=== PATIENT | male | born 1955 | race Caucasian/White ===

== ENCOUNTER → 2018-05-14 09:40 | Outpatient (CLI) | payer BC, SELFPAY ==
[2018-05-14 10:45] LABS: Potassium 5.1 mmoL/L (3.5-5.1)
== END ==
PROVIDERS: PCP Physician Assistant; Visit Provider Physician Assistant
DX: E87.5 Hyperkalemia (principal)
CPT/HCPCS: 36415; 84132

== ENCOUNTER 2021-04-30 13:03 | Emergency (ER) | payer BC, SELFPAY ==
[2021-04-30 15:44] VITALS: BP 121/76; PULSE 79; RESP 17; TEMP 37; O2SAT 100; BMI 31.3
--- NOTE | 2021-04-30 15:50 | HMH.EDUTC ---
[facility] Disposition Clinical Impression: Exposure to COVID-19 virus Disposition: Home, Self-Care Condition on Discharge: Good Instructions: DI for COVID-19 (Suspected or Confirmed ), Preventing the Spread of Coronavirus Discharge Instructions Additional Instructions: *Monitor Temp, Over the counter Motrin or Tylenol as directed/as needed Tylenol every 4 hours and Motrin every 6 hours (as long as your family doctor has told you that you can take it) for fever or pain. and straight to ER if unable to lower temp less than 101.0 after medication given Follow up IMMEDIATELY for new or worsening symptoms or no Noticeable improvement over the next 48-72 hours. 911 for difficulty breathing or swallowing You were tested for today for COVID19 your test result should be back in the next 24-48 hours, You was given handout for instructions to [facility] to view your result if you are unable to log on you may call You was given a handout with instructions for Self Quarantine and Self isolation for while you wait on test results and what to do if they are positive If you are positive the Health Dept will be contacting you also Make sure to take your Vitamins Vit. C Vit D and Zinc if you can take them Referrals: Melita Lawrence PA [Primary Care Provider] - As needed Forms: Work/School Release Medical Decision Making - Emiliano Inquiry Pt receiving controlled substance: No Emiliano was queried for this patient: No Vital Signs: 04/30/21 15:44 Temperature 98.6 F Temperature Source Oral Pulse Rate [Right Brachial] 79 Respiratory Rate 17 Blood Pressure [Right Arm] 121/76 Blood Pressure Mean [Right Arm] 91 Blood Pressure Source [Right Arm] Automatic Cuff Blood Pressure Position [Right Arm] Sitting 02 Sat by Pulse Oximetry 100 Oxygen Delivery Method Room Air Orders (Tests/Meds): ORDERS Category Date Time Status Covid-19 Nasal PCR ([facility]) Routine Lab 04/30/21 15:04 Ordered [facility] HPI - General Stated complaint: covid test Time Seen by Provider: 04/30/21 15:50 Mode of Arrival: Ambulatory Source of Information: Patient Description of Symptoms (Recalled from Triage Doc. by RN): covid test HEENT Symptoms (Recalled from RN notes): No Resp Symptoms (Recalled from RN notes): No Skin Symptoms (Recalled from RN notes): No MS Symptoms (Recalled from RN notes): No Functional Status (Recalled from RN notes): yes - History of Present Illness Provider Complaint: Patient state that he was recently around his brother that tested positive for COVID states that he is not having any symptoms but due to exposure wanted to get tested - Related Data Home Medications Medication Instructions Recorded Confirmed amlodipine 5 mg tablet 5 mg PO DAILY 01/03/21 01/03/21 atorvastatin 10 mg tablet 10 mg PO DAILY 01/03/21 01/03/21 carvedilol 25 mg tablet 25 mg PO BID 01/03/21 01/03/21 fenofibrate 160 mg tablet 160 mg PO DAILY 01/03/21 01/03/21 gabapentin 100 mg capsule 100 mg PO BID 01/03/21 01/03/21 hydroxyzine pamoate 25 mg capsule 25 mg PO HS 01/03/21 01/03/21 lancets 17 gauge See Rx Instructions .ROUTE 01/03/21 .MEDSUPPLY #100 each metformin 500 mg tablet 500 mg PO BID tab 01/03/21 01/03/21 naproxen 500 mg tablet,delayed 500 mg PO BID 01/03/21 01/03/21 release pen needle, diabetic 32 gauge x See Rx Instructions .ROUTE 01/03/21 01/03/21 .MEDSUPPLY #50 each Allergies Allergy/AdvReac Type Severity Reaction Status Date / Time lisinopril Allergy Mild Verified 04/30/21 15:43 - Worker's Comp Is this a Worker's Comp case?: No Is this an H Worker's Comp?: No Is this a Matt Worker's Comp?: No [facility] History - Hepatitis A Screen Drug use history?: No High risk sexual behaviors?: No History of sexually transmitted infection?: No Currently employed?: No Childcare worker?: No Do you have indoor plumbing?: Yes Do you have electricity?: Yes Attestation statement:: This patient has been screened f
[2021-04-30 16:39] VITALS: BP 121/76; PULSE 79; RESP 17; TEMP 37; O2SAT 100
== END 2021-04-30 16:39 | disposition home or self-care (01) ==
PROVIDERS: Emergency Provider Nurse Practitioner; PCP Physician Assistant
DX: U07.1 COVID-19 (principal); E78.5 Hyperlipidemia, unspecified; I10 Essential (primary) hypertension; E11.9 Type 2 diabetes mellitus without complications
CPT/HCPCS: 99202; C9803; G0463; U0003; U0005

== ENCOUNTER → 2021-08-31 12:30 | Outpatient (CLI) | payer BC, SELFPAY | PROVIDERS: Visit Provider Nurse Practitioner | DX: Z20.822 Contact with and (suspected) exposure to COVID-19 (principal) | CPT/HCPCS: C9803; U0003; U0005 ==

== ENCOUNTER → 2021-12-28 08:52 | Outpatient (CLI) | payer BC, SELFPAY | PROVIDERS: PCP Physician Assistant; Visit Provider Physician Assistant | DX: I50.9 Heart failure, unspecified (principal) | CPT/HCPCS: 93306 ==

== ENCOUNTER → 2022-02-06 07:38 | Outpatient (CLI) | payer BC, SELFPAY ==
--- NOTE | 2022-02-06 | CA_ITS ---
APPROVED REPORT Exam: Pharmacologic Technologist: Helena Abdullahi Ht: 5 ft 9 in Wt: 211 lbs BSA: 2.11 m2 HR: 94 bpm BP: 186/112 mmHg Indications: CHF Medical History Medications: Metformin,,,,, Gabapentin,,,,, Atorvastatin,,,,, Carvedilol,,,,, INSULIN,,,,, Valsartan,,,,, FeNOfibrate,,,,, Furosemide,,,,, Stress Test Details Test: LEXISCAN HR Resting HR: 88 bpm Max Heart Rate (APMHR): 155.972824 bpm Max HR Achieved: 97 bpm Target HR (85% APMHR): 131.129568 bpm % of APMHR: 62.58 Recovery HR: 85 bpm BP Resting BP: 186.0/112.0 mmHg Max BP: 186.0/112.0 mmHg Recovery BP: 157.0/88.0 mmHg ECG Resting ECG: Normal sinus rhythm, ventricular bigeminy, rightward axis, old anteroseptal TX, NS ST-T abnormalities inferiorly Clinical Exercise duration: 04:00 min Highest Stage Achieved: Exercise capacity: 1.0 METs Stress ECG Conclusion Switched from exercise due to very limited exercise tolerance. Blood pressure prior to exercise was 154/89 Symptoms: Shortness of air. No chest pain. Arrhythmias/Ectopy: Occasional PVC, Occasional Ventricular couplet. ST-T Changes: No significant changes. Conclusion: Unremarkable Lexiscan stress. Myoview images reported separately. Electronically signed by : Oleg William MD 02/06/2022 18:26:39
--- NOTE | 2022-02-06 07:39 | NM_ITS ---
APPROVED REPORT Exam: Nuclear Stress Test Indication: SOB, Abnormal EKG, CHF, HTN, DM, High cholesterol Patient Location: Outpatient Stress Tech: Helena Abdullahi GA Tech:Jade Fontenot, ARRT, RT (R)(N) Ht: 5 ft 9 in Wt: 212 lbs HR: 88 bpm BP: 186/112 mmHg BSA: 2.12 m2 TID: 1.06 BMI: 31.3 History: SOB, Abnormal EKG, CHF, HTN, DM, High cholesterol Procedure: Patient received a 0.4 mg of intravenous Lexiscan, resting heart rate 88 bpm, resting blood pressure 186/112 mmHg, with Lexiscan maximum heart rate achived was 97 bpm which is Less than 85 % of the maximum predicted heart rate and blood pressure was 186/112 mmHg. With Lexiscan, patient denied any complaint of chest pain. Electrocardiogram Resting electrocardiogram shows sinus rhythm anterior infarct age-indeterminate, with Lexiscan there is less than 1.[address] segment depression from the baseline EKG. The EKG portion of the Lexiscan is nondiagnostic. Cardiac Stress and Resting SPECT Images: Cardiac Stress and Resting SPECT images were obtained using technetium 99m Myoview 32.2 mCi stress and 10.49 mCi at rest. Gated SPECT for analysis of segmental wall motion and calculation of the ejection fraction was present. Cardiac stress and rest SPECT images show uniform myocardial activity without segmental perfusion abnormality, computer derived ejection fraction is 33% with left ventricular global hypokinesis, left ventricle is dilated with stress and rest, right ventricle is normal size and contractility. Conclusion: 1. The EKG portion of the Lexiscan is nondiagnostic 2. No scintigraphic evidence of reversible ischemia seen, computer derived ejection fraction is 33% with left ventricular global hypokinesis, right ventricle is normal size and contractility. 3. Abnormal Lexiscan Myoview study due to low ejection fraction. Electronically signed by : Oleg William MD 02/06/2022 18:29:22
--- NOTE | 2022-02-06 09:10 | HMH.ITSHM ---
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 []VALSARTAN METFORMIN INSULIN HYDROXYZINE GABAPENTIN FUROSEMIDE FENOFIBRATE CARVEDILOL ATROVASTATIN
== END ==
PROVIDERS: PCP Physician Assistant; Visit Provider Nurse Practitioner Family
DX: I50.9 Heart failure, unspecified (principal); I27.20 Pulmonary hypertension, unspecified; I10 Essential (primary) hypertension; E78.5 Hyperlipidemia, unspecified; R60.0 Localized edema; R94.31 Abnormal electrocardiogram [ECG] [EKG]
CPT/HCPCS: 78452; 93017; A9502; J2785

== ENCOUNTER → 2022-02-19 16:55 | Outpatient (CLI) | payer BC, SELFPAY ==
[2022-02-19 17:30] LABS: Basophils # 0.1 K/mm3 (0-0.2); Basophils % 1.1 % (0.1-2.0); Eosinophils # 0.2 K/mm3 (0.0-0.4); Eosinophils % 2.7 % (0.1-12.0); Hematocrit 38.3 % (42.0-52.0); Hemoglobin 12.8 g/dL (14.1-18.0); Mean Corpuscular HGB Conc 33.3 g/dL (31.8-35.4); Mean Corpuscular Hemoglobin 30.7 pg (27.0-31.2); Mean Platelet Volume 7.7 fl (7.4-10.4); Monocytes # 0.6 K/mm3 (0.1-1.0); Monocytes % 8.2 % (1.7-9.3); Neutrophils # 4.5 K/mm3 (1.8-7.8); Platelet Count 369 K/mm3 (142-424); Red Blood Count 4.17 M/mm3 (4.60-6.20); Red Cell Distribution Width 14.1 % (11.5-17.5); White Blood Count 7.3 K/mm3 (4.8-10.8)
[2022-02-19 17:33] LABS: Chloride 109 mmol/L (98-107); Sodium 139 mmol/L (136-145)
[2022-02-19 17:34] LABS: Potassium 4.5 mmoL/L (3.5-5.1)
[2022-02-19 17:36] LABS: Blood Urea Nitrogen 23 mg/dl (9-20); Estimated Glomerular Filt Rate 51 ml/min (>60); GFR (African American) 62 ML/MIN (>60)
[2022-02-19 17:37] LABS: Anion Gap 9.5 mEq/L (5-15); Calcium 9.7 mg/dl (8.4-10.2); Carbon Dioxide 25 mmol/L (22.0-30.0); Glucose 149 mg/dl (74-100)
== END ==
PROVIDERS: PCP Family Medicine; Visit Provider Internal Medicine Cardiovascular Disease
DX: Z01.812 Encounter for preprocedural laboratory examination (principal); Z20.822 Contact with and (suspected) exposure to COVID-19; I11.0 Hypertensive heart disease with heart failure; I50.20 Unspecified systolic (congestive) heart failure; I27.20 Pulmonary hypertension, unspecified; R60.0 Localized edema; E78.5 Hyperlipidemia, unspecified; R94.30 Abnormal result of cardiovascular function study, unspecified; R94.31 Abnormal electrocardiogram [ECG] [EKG]
CPT/HCPCS: 36415; 80048; 85025; C9803; U0003; U0005

== ENCOUNTER 2022-02-20 08:26 | Day surgery (SDC) | payer BC, SELFPAY ==
[2022-02-20] VITALS (12 sets, daily range): BP systolic 119–164; BP diastolic 77–96; PULSE 70–95; RESP 18; O2SAT 90–99; BMI 32.0
--- NOTE | 2022-02-20 | IR_ITS ---
APPROVED REPORT Patient Location: Outpatient Concrete Mixer Truck Driver: MARGARET Ray RT (R) PROCEDURES Left heart catheterization Left ventriculogram Selective coronary angiogram Drug-eluting stent deployment to the proximal and mid LAD in a contiguous manner Intravascular ultrasound to the proximal dominant circumflex artery's first obtuse marginal artery Drug-eluting stent deployment to the dominant circumflex artery's first obtuse marginal artery INDICATION Systolic congestive heart failure, Ischemic cardiomyopathy, Coronary artery disease Informed consent was obtained prior to the procedure. COMPLICATIONS NONE Estimated Blood Loss: LESS THAN 10 ML TECHNIQUE One percent lidocaine used to anesthetize the right anterior aspect of the wrist. The right radial artery was accessed via the Seldinger technique. A 6 [place] sheath was placed in the right radial artery. 2.5 mg of verapamil, 800 mcg of nitroglycerin, 1mg Lidocaine and 5000 U Heparin were given through the arterial sheath. The papa catheter was also used to perform left heart catheterization, left ventriculogram and selective coronary angiogram. At the end of the procedure therapeutic heparin was administered giving a therapeutic ACT and the guide catheter was left in the left main artery followed by a Choice PT extra-support wire into the LAD. 3 mm x 38 mm resolute Laporte stent was deployed at 20 shae reducing the stenosis. An additional 3.5 x 26 mm resolute Sae stent was placed proximal to this and deployed at 20 shae reducing the stenosis. The balloon was then advanced to an area of the mid LAD and deployed at 24 shae to post dilate. This failed to reduce the lesion therefore an additional 3.5 x 8 mm noncompliant balloon was deployed at 24 shae this time reducing the stenosis to less than 10%. SUE-3 flow was present before and after the procedure. The wire was pulled back and placed in the circumflex artery where hazy calcified stenosis was identified. The intravascular ultrasound probe was advanced and an MLA was measured at 1.7 mm???. Because of this a 3 mm x 30 mm resolute Laporte stent was deployed in the proximal obtuse marginal artery at 20 shae reducing the stenosis to 0%. 800 mcg of intracoronary nitroglycerin was administered. At the end of the procedure excellent angiographic results were obtained with SUE-3 flow being present before and after the procedure and both vessels at the end of procedure the apparatus was removed the sheath was removed and hemostasis was achieved using TR banding patient was transferred to the postop putting in stable condition ANGIOGRAPHIC RESULTS The left main artery Normal The left anterior descending artery Has proximal 40 to 50% stenosis with a concentric mid vessel calcified 70 to 80% stenosis The circumflex artery Is a large dominant with concentric calcified 80 to 90% stenosis in the first obtuse marginal artery. The mid circumflex artery has an additional mid vessel 30% stenoses in a distal concentric 40 to 50% stenosis The right coronary artery Vestigial normal The JACOBS ventriculogram reveals Not performed The left ventricular end-diastolic pressure Not measured MLA of first obtuse marginal artery 1.7 mm??? IMPRESSION Severe two-vessel coronary artery disease as described above Successful stenting of the proximal mid LAD severe disease reduced to less than 10% with 2 contiguous drug-eluting stents Successful stenting of large first obtuse marginal artery severe disease reduced to 0% with 1 drug-eluting stent PLAN 1. Dual antiplatelet therapy 2. LDL less than 55 to be achieved with high intensity statin 3. Entresto plus carvedilol 4. Cardiac rehabilitation 5. Evaluation of eje
--- NOTE | 2022-02-20 14:13 | HMH.PHACLD ---
Herminia Freeman has received discharge medication counseling on the following medications: -BRILINTA (TWICE DAILY, BLOOD THINNER, BLEED/BRUISE RISK, BLEED LOCATION CHANGES APPEARANCE, BUMP HEAD = VISIT ER) -ASPIRIN (ONCE DAILY, HEART HEALTH, BLEED/BRUISE RISK, BLEED LOCATION CHANGES APPEARANCE) -ATORVASTATIN -CARVEDILOL -VALSARTAN
== END 2022-02-20 14:06 | disposition home or self-care (01) ==
LOC: CATHLAB 08:26
PROVIDERS: PCP Family Medicine; Visit Provider Internal Medicine
DX: I11.0 Hypertensive heart disease with heart failure (principal); E11.9 Type 2 diabetes mellitus without complications; I25.10 Atherosclerotic heart disease of native coronary artery without angina pectoris; Z79.899 Other long term (current) drug therapy; I50.20 Unspecified systolic (congestive) heart failure; I25.5 Ischemic cardiomyopathy; Z79.4 Long term (current) use of insulin; I27.20 Pulmonary hypertension, unspecified; Z87.891 Personal history of nicotine dependence
CPT/HCPCS: 92928; 92929; 92978; 93458; 99152; 99153; C1725; C1760; C1769; C1874; C1876; C9600; C9601; J1644; Q9967

== ENCOUNTER → 2022-02-21 17:17 | Outpatient (CLI) | payer BC, SELFPAY ==
[2022-02-21 17:53] LABS: Basophils # 0.2 K/mm3 (0-0.2); Basophils % 2.2 % (0.1-2.0); Eosinophils # 0.2 K/mm3 (0.0-0.4); Eosinophils % 2.9 % (0.1-12.0); Hematocrit 40.8 % (42.0-52.0); Hemoglobin 12.7 g/dL (14.1-18.0); Lymphocytes % 26.3 % (10-50); Mean Corpuscular HGB Conc 31.2 g/dL (31.8-35.4); Mean Corpuscular Hemoglobin 30.4 pg (27.0-31.2); Mean Corpuscular Volume 97.2 fl (80-94); Mean Platelet Volume 8.3 fl (7.4-10.4); Monocytes # 0.7 K/mm3 (0.1-1.0); Monocytes % 9.3 % (1.7-9.3); Neutrophils # 4.5 K/mm3 (1.8-7.8); Neutrophils % 59.2 % (37.0-80.0); Platelet Count 382 K/mm3 (142-424); Red Blood Count 4.19 M/mm3 (4.60-6.20); Red Cell Distribution Width 14.7 % (11.5-17.5); White Blood Count 7.6 K/mm3 (4.8-10.8)
[2022-02-21 18:02] LABS: Chloride 108 mmol/L (98-107)
[2022-02-21 18:03] LABS: Potassium 4.5 mmoL/L (3.5-5.1); Sodium 139 mmol/L (136-145)
[2022-02-21 18:05] LABS: Blood Urea Nitrogen 25 mg/dl (9-20); Estimated Glomerular Filt Rate 51 ml/min (>60); GFR (African American) 62 ML/MIN (>60)
[2022-02-21 18:06] LABS: Anion Gap 10.5 mEq/L (5-15); Calcium 9.7 mg/dl (8.4-10.2); Carbon Dioxide 25 mmol/L (22.0-30.0); Glucose 129 mg/dl (74-100)
== END ==
PROVIDERS: PCP Family Medicine; Visit Provider Internal Medicine
DX: I50.9 Heart failure, unspecified (principal)
CPT/HCPCS: 36415; 80048; 85025

== ENCOUNTER → 2022-10-22 09:13 | Outpatient (CLI) | payer BC, SELFPAY ==
[2022-10-22 09:52] LABS: Basophils # 0.1 K/mm3 (0-0.2); Basophils % 1.5 % (0.1-2.0); Eosinophils # 0.2 K/mm3 (0.0-0.4); Eosinophils % 2.6 % (0.1-12.0); Hematocrit 43.8 % (42.0-52.0); Lymphocytes # 2.4 K/mm3 (0.7-4.5); Lymphocytes % 27.6 % (10-50); Mean Corpuscular Hemoglobin 29.3 pg (27.0-31.2); Mean Corpuscular Volume 91.5 fl (80-94); Mean Platelet Volume 8.4 fl (7.4-10.4); Monocytes # 0.6 K/mm3 (0.1-1.0); Monocytes % 7.2 % (1.7-9.3); Neutrophils # 5.3 K/mm3 (1.8-7.8); Neutrophils % 61.2 % (37.0-80.0); Platelet Count 384 K/mm3 (142-424); Red Blood Count 4.79 M/mm3 (4.60-6.20); Red Cell Distribution Width 13.6 % (11.5-17.5); White Blood Count 8.6 K/mm3 (4.8-10.8)
[2022-10-22 10:17] LABS: Alanine Aminotransferase 22 U/L (12-78); Albumin Level 3.8 g/dl (3.5-5.0); Alkaline Phosphatase 74 U/L (38-126); Anion Gap 12.2 mEq/L (5-15); Aspartate Amino Transferase 21 U/L (17-59); Bilirubin,Direct 0.3 mg/dl (0.0-0.4); Bilirubin,Indirect 0.2 mg/dL (0.0-0.9); Bilirubin,Total 0.5 mg/dl (0.2-1.3); Bilirubin,Unconjugated 0.2 mg/dL (0.0-1.1); Blood Urea Nitrogen 24 mg/dl (9-20); Calcium 9.2 mg/dl (8.4-10.2); Carbon Dioxide 26 mmol/L (22.0-30.0); Chloride 104 mmol/L (98-107); Cholesterol 117 mg/dl (140-200); Estimated Glomerular Filt Rate 55 ml/min (>60); GFR (African American) 67 ML/MIN (>60); Glucose 238 mg/dl (74-100); HDL Cholesterol 29 mg/dl (40-60); Potassium 5.2 mmoL/L (3.5-5.1); Sodium 137 mmol/L (136-145); Total Protein,Serum 6.6 g/dl (6.3-8.2); Triglycerides 111 mg/dl (30-150); VLDL Cholesterol 22 mg/dL (0-40)
[2022-10-22 10:28] LABS: Direct LDL Cholesterol 74.01 mg/dL (100-129)
[2022-10-22 10:47] LABS: Thyroid Stimulating Hormone 3.25 uIU/mL (0.465-4.68)
== END ==
PROVIDERS: PCP Family Medicine; Visit Provider Nurse Practitioner
DX: I25.10 Atherosclerotic heart disease of native coronary artery without angina pectoris (principal); R06.00 Dyspnea, unspecified; I27.20 Pulmonary hypertension, unspecified; I11.9 Hypertensive heart disease without heart failure; E11.9 Type 2 diabetes mellitus without complications; E78.2 Mixed hyperlipidemia; I42.9 Cardiomyopathy, unspecified; I50.9 Heart failure, unspecified; R60.0 Localized edema; R94.31 Abnormal electrocardiogram [ECG] [EKG]; Z79.84 Long term (current) use of oral hypoglycemic drugs
CPT/HCPCS: 36415; 80048; 80061; 80076; 84439; 84443; 85025

== ENCOUNTER → 2022-11-05 14:21 | Outpatient (CLI) | payer BC, SELFPAY ==
--- NOTE | 2022-11-05 14:22 | CA_ITS ---
APPROVED REPORT EXAM: Comprehensive 2D, Doppler, and color-flow Echocardiogram Log Deckman: Kelly Ware RVT Ht: 5 ft 9 in Wt: 225lbs BSA: 2.17 BP: 134/73 mmHg Indications: SOA,CAD,CHF,CM,EX SMOKER,HTN,HLD 2D Dimensions LVOT 2.20 cm (M/F) 1.5-2.5 LA Volume 65.60 mL LA Volume Index 30.23 mL/m2 (M/F) 16-34 M-Mode Dimensions RVDd 2.16 cm (0.9-2.6) LA Diam 4.59 cm (1.9-4.0) LVDd 5.55 cm (3.5-5.7) Ao Diam 3.39 cm (2.0-3.7) LVDs 4.18 cm (3.5-5.7) IVSd 1.08 cm (0.6-1.1) PWd 0.80 cm (0.6-1.1) EF (Teich) 48.40% FS 24.70% EDV (Teich) 150.50 mL TAPSE 2.59 (<1.7) ESV (Teich) 77.70 mL LV Diastology E Decel Time 150.00 (160-240 msec) E/A Ratio 0.9 MED E' 4.80 (< 7 cm/sec) E'/MED E' Ratio 17.27 (>14) LAT E' 7.00 (<10 cm/sec) E/LAT E' Ratio 11.84 (>14) Aortic Valve AO Peak GR. 4.70 mmHg Mitral Valve MV E Max Nabor. 83.00 (40-130 cm/s) MV A Velocity 95.00 (40-130 cm/s) E/A Ratio 0.87 MV Decel. Time 150.00 (160-240 ms) MV PHT 44.00 ms Pulmonary Valve PV Peak Velocity 70.00 (50-150 cm/s) Tricuspid Valve TR P. Velocity 276.00 cm/s RAP Estimate 10.00 mmHg RVSP 40.50 mmHg Left Ventricle Technically difficult study because of the patient factors and poor acoustic windows. Left atrium is mildly enlarged left ventricle is normal size mild concentric left ventricular hypertrophy, estimated ejection fraction approximately 45% with no regional wall motion abnormality, grade 1 diastolic dysfunction seen with tissue Doppler evidence of raise left atrial pressure. Right Ventricle Right atrium and right ventricular mildly enlarged with normal contractility. Aortic Valve Aortic valve is minimally thickened and fibrosed there is no aortic stenosis aortic insufficiency. Mitral Valve Mitral valve leaflets are minimally thickened, there is mild mitral regurgitation. Tricuspid valve grossly normal, there is mild tricuspid regurgitation, calculated right ventricular systolic pressure is 40 mmHg. Pulmonic Valve Pulmonic valve is poorly visualized. Great Vessels Aortic root is normal size. Inferior vena cava is poorly visualized. Pericardium No significant pericardial effusion noted. Conclusion 1. Biatrial enlargement, normal left ventricular size mild concentric left ventricular hypertrophy, estimated ejection fraction 45% with no regional wall motion abnormality, grade 1 diastolic dysfunction seen with tissue Doppler evidence of raise left atrial pressure. 2. Mildly enlarged right ventricle with normal contractility. 3. Mild mitral and tricuspid regurgitation, calculated right ventricular systolic pressure is 40 mmHg. 4. No significant pericardial effusion noted. 5. Inferior vena cava is poorly visualized. Electronically signed by : Oleg William MD 11/06/2022 06:51:33
== END ==
LOC: RT 14:22
PROVIDERS: PCP Family Medicine; Visit Provider Nurse Practitioner
DX: I42.8 Other cardiomyopathies (principal); I25.10 Atherosclerotic heart disease of native coronary artery without angina pectoris; I10 Essential (primary) hypertension; E78.2 Mixed hyperlipidemia; I27.20 Pulmonary hypertension, unspecified; I50.9 Heart failure, unspecified; R60.0 Localized edema; R94.31 Abnormal electrocardiogram [ECG] [EKG]
CPT/HCPCS: 93306

== ENCOUNTER 2025-05-13 08:36 | Outpatient (CLI) | payer MEDICARE, SELFPAY ==
--- OUTSIDE RECORDS SUMMARY | 2024-10-22 05:00 | XMS_ITS ---
Author Organization [facility] Address [address] [facility] [facility] [address] [place] [phone] Care Team Providers Care Motorcycle Repairer Name Role Phone Darwin Martinez Primary Care Provider [phone] Melita Lawrence [phone] Allergies Allergen (clinical drug ingredient) Drug/Non Drug Allergy documented on EMR Reaction Allergy Type Onset Date Status lisinopril Lisinopril dry cough Drug Allergy Activ e REASON FOR VISIT 6 months, Needs labs, low dose chest CT, colon cancer screening, diabetic eye exam, & shingles vaccine Encounters Encounter Location Date Provider Diagnosis [facility] [address] [facility] [address] [facility] [address] [place] [phone] 10/22/2024 Melita Lawrence Plan Of Treatment Next Appt Details Provider Name:Darwin Fonseca ry, 10/26/2025 09:30:00 AM, [address] [facility] [address] [address], [address], [facility] [place], [phone], Progress Notes * PETE AllieDOB: (70 yo M)Acc No.[id number]:10/22/2024 Progress Notes Patient: Herminia MONTOYA Provider: CURT Malin :1955 A ge:69 Y S ex:Male Date:10/22/2024 Address:[address] [place], [place] [id number] Pcp:Darwin Martinez Subjective: * Chief Complaints: * [...] * Electronic signature of CURT Stokes on 05/13/2025 at 08:41 AM EDT Sign off status: Pending * Provider: CURT Malin Date: 0 10/22/2024 Generated for Nina carranza/Yaron/eTransmitting on: 1 08:41 AM EDT History and Physical Notes * HPI (History of Present Illness) Category Sub-Category Detail Notes Category Not es HPI Patient is here today for 6 mo c heck-up. Pt states she is doing well and does not have any concerns. Pt is fasting today
--- OUTSIDE RECORDS SUMMARY | 2025-04-27 05:45 | XMS_ITS ---
Author Organization [facility] Address [address] [facility] [address] [place] [id number] Care Team Providers Care Speeder Worker Name Role Phone Darwin Martinez Primary Care Provider [phone] Melita Lawrence Unavailable [phone] Allergies Allergen (clinical drug ingredient) Drug/Non Drug [...] Normal Performing Lab: Notes/Report: Test performed by [facility] [address] [place], [place] [address] [place] , [address], [place] [address] Radhames Storm MD, [employer] CLIA: [id number] Vitamin B12 895 447-1151 pg/mL P-Comprehensive Metabolic Pa dora (CMP) Reviewed date:04/29/2025 09:29:56 AM Interpretation:K 5.4, Glu 324, Creat 1.50, eGFR 50 Performing Lab: Notes/Report: Test performed by [facility] [address] [place] [address] [address]enny [address], [address], [place] [address] Radhames Storm MD, [employer] CLIA: [id number] Sodium 136 135-145 mmol/L Potassium 5.4 3.5-5.3 [...] 5.35 Performing Lab: Notes/Report: Test performed by [facility], [facility] [address] [place] [address] , [address], [place] [address] Radhames Storm MD, [employer] CLIA: [id number] Cholesterol 107 <200 mg/dL Triglycerides 174 <150 [...] Normal Performing Lab: Notes/Report: Test performed by [facility] [address] [place], [place] [address] [place] Brett [address], [place] [address] Radhames Storm MD, [employer] CLIA: [id number] Phosphorus 3.4 2.5-4.5 mg/dL P-PSA Reviewed date:04/29/2025 09:29:56 AM Interpretation:3.09 Performing Lab: Notes/Report: Test performed by [facility] [address] [place] [address] [place] [address] Radhames Storm MD, [employer] CLIA: [id number] PSA 3.09 <4.00 ng/mL Please note this is an ultrasensitive PSA assay with a lower limit of detection of 0.014 ng/mL. This test is performed by the Christal ECLIA methodology. Values obtained with different assay methods or kits cannot be directly compared. P-Parathyroid Hormone (PTH) Intact Reviewed date:04/29/2025 09:29:56 AM Interpretation: Normal Performing Lab: Notes/Report: Test performed by [facility] [address] , [facility] [place] [address] Radhames Storm MD, [employer] CLIA: [id number] Parathyroid Hormone (PTH) Intact 22.7 15.0-65.0 pg/mL P-Microalbumin/Creatinine, R andom Urine Sample Reviewed date:04/29/2025 09:29:57 AM Interpretation:Alb 165 Performing Lab: Notes/Report: Test performed by [facility] [address] , [address], [place] [address] Radhames Storm MD, [employer] CLIA: [id number] Albumin/Creatinine Ratio, Urine 165 0-30 ug/m g Microalbumin, Urine, Random 21.5 Creatinine, Urine 130.6 Reason For Referral Diagnosis 1 Uncontrolled type 2 diabetes mellitus with hyperglycemia (E11.65) Referral Organization [facility] Referring Provider First Name Darwin Referring Provider Last Name Michelle Referring Provider Speciality Family [facility] Referred Provider Mick Lomeli Referred Provider Specialty Endocrinolog y General Notes Shanice Carlos 2024 11:46:33 AM > faxed to [facility] EndocrinologyBreanna Brynn 05/06/2025 09:22:51 AM > [facility] Endo has reached out twice to schedule [...] review and pick correct strength-formulat ion from [employer] options. If intended option is not shown, [...] review and pick correct strength-formulat ion from [employer] options. If intended option is not shown, discontinue and re-order from Quick Search* 01/07/2020 Not-Taking Accu-Chek Gracie Plus 1 TEST STRIP(S) FINGERSTICK TEST 3 TIMES A DAY OR DIRECTED; Duration: 30 DAYS *Please review and pick correct strength-formulat ion from [employer] options. If intended option is not shown, discontinue and re-order from Quick Search* 01/07/2020 Not-Taking BD Pen Needle Short U/F DIRECTED SUBCUTANEOUS TWO TIMES A DAY *Please review and pick correct strength-formulat ion from [employer] options. If intended option is not shown, [...] Hyperglycemia due to type 2 diabetes mellitus ([id number]) Uncontrolled type 2 diabetes mellitus with hyperglycemia (E11.65) Active confirmed Problem Diabetic peripheral neuropathy associated with type 2 diabetes mellitus (1169756428258) Type 2 diabetes mellitus with diabetic neuropathy, unspecified whether inner tube inserter insulin use (E11.40) Active confirmed Problem Body mass index 30.00 to 34.99 (324396564243749) BMI 31.0-31.9,adult (Z68.31) Active confirmed Vital Signs Weight 221.8 lbs 04/27/2025 Blood pressure systolic 120 mm Hg 04/27/20 25 Blood pressure diastolic 72 mm Hg 025 Heart Rate 77 /min 04/27/2025 Height 70 in 04/27/2025 BMI 31.82 kg/m2 04/27/2025 Encounters Encounter Location Date Provider Diagnosis [facility] [address] [facility] [address] [place] [id number] 04/27/2025 Darwin Martinez Type 2 diabetes rema itus without complications E11.9 ; Essential hypertension I10 ; Mixed hyperlipidemia E78.2 ; Stage 3a chronic kidney disease N18.31 ; Neuropathy G62.9 ; Chronic congestive heart failure, unspecified heart failure type I50.9 ; 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, unspecified vessel or lesion type I25.10 ; Prostate cancer screening Z12.5 ; Encounter for immunization Z23 ; Uncontrolled type 2 diabetes mellitus with hyperglycemia E11.65 ; 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 ; Type 2 diabetes mellitus with diabetic neuropathy, unspecified whether penitentiary insulin use E11.40 and BMI 31.0-31.9,adult Z68.31 [...] - I50.9) 04/27/2025 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, unspecified vessel or [...] diabetes mellitus with diabetic neuropathy, unspecified whether penitentiary insulin use (ICD-10 - E11.40) 04/27/2025 BMI [...] Fonseca ry, 10/26/2025 09:30:00 AM, [address] [facility] [address] [facility], [address] , [place], [place], [id number], Progress Notes * CHANOTamera SOSAOB: 6 (70 yo M)Acc No.[id number]:04/27/2025 Progress Notes Patient: Herminia MONTOYA Provider: Javier Martinez M.D. :1955 A ge:70 Y S ex:Male Date:04/27/2025 Address:[address] [place] [id number] Subjective: * Chief Complaints: * 1 . [...] *Please review and pick correct strength-formulation from [employer] options. If intended option is not shown, [...] review and pick correct strength- formulation from [employer] options. If intended option is not shown, discontinue and re-order from Quick Search*, Not-Taking Accu-Chek Gracie Plus 1 TEST STRIP(S) FINGERSTICK TEST 3 TIMES A DAY OR DIRECTED , Notes to Pharmacist: *Please review and pick correct strength-formulation from [employer] options. If intended option is not shown, [...] 7 . C oronary artery disease involving rincon heart without angina pectoris, unspecified vessel or lesion type - I25.10 8 . P rostate cancer screening - Z12.5 9. E ncounter for immunization - Z23 1 0. U ncontrolled type 2 diabetes mellitus with hyperglycemia - E11.65 1 1. C hronic kidney disease due to diabetes mellitus - E11.22 1 2. T ype 2 diabetes mellitus with diabetic neuropathy, unspecified whether inner tube inserter insulin use - E11.40 1 3. B [place] 31.0-31.9,adult - Z68.31 Plan: * Treatment: Value [...] AM)?Normal* Value Reference Range V itamin B12 568 963-1232 - pg/mL * Jacqueline Pinzon 04/29/2025 09: [...] G 2211 Complex e/[place], [address] GLUCOSE TEST, 28297 GLYCATED HEMOGLOBIN TEST, Modifiers: QW , 3046F [...] * Images: Billing Information: * Visit Code: 48960 Office Visit, Est Pt., Level 4. * Procedure Codes: G2211 Complex e/[place]. [address] GLUCOSE TEST. 97419 GLYCATED HEMOGLOBIN TEST. Modifiers: QW 3046F HEMOGLOBIN A1C LEVEL > 9.0%. 1036F TOBACCO NON-USER. G8950 PREHTN/HTN BP DOC INDCD F/U DOC. G8752 MOST RECENT SYSTOLIC BP < 140MM HG. G8754 MOST RECENT DIASTOLIC BP < 90MM HG. 3074F SYST BP LT 130 MM HG. 3078F DIAST BP < 80 MM HG. * Electronic signature of Celina Martinez MD on 05/13/2025 at 08:39 AM EDT Sign off status: Pending * Provider: Javier aMrtinez M.D. Date: 0 04/27/2025 Generated for Nina carranza/Yaron/Tegan on: 1 08:39 AM EDT History and Physical Notes * [...]
--- OUTSIDE RECORDS SUMMARY | 2025-05-03 07:05 | XMS_ITS ---
Author [facility] Address [address] [place] [address] [address] [place], [place] [id number] Care Team Providers Care Custom Studio Coordinator Name Role Phone [place], Darwin Primary Care Provider [phone] Melita Lawrence Unavailable [phone] REASON FOR VISIT due LDCT Encounters Encounter Location Date Provider Diagnosis [facility] [address] [facility] 36 [facility] [address] [place] [phone] 05/03/2025 Darwin Maritnez Encounter for screening for lung cancer Z12.2 Assessments Encounter Date Diagnosis (ICD Code) Assessment Notes Treatment Notes Treatment Clinical Notes Section Notes 05/03/2025 Encounter for screening for lung cancer (ICD-10 - Z12.2) Plan Of Treatment Pending Test Test Name Order Date CT Scan : Chest, low dose 05/03/2025 Next Appt Details Provider Name:Darwin Fonseca ry, 10/26/2025 09:30:00 AM, [address] [facility] 36 [facility], [address], [place], [place], [id number], Progress Notes * PETE TameraOB: 6 (70 yo M)Acc No.[id number]:05/03/2025 Patient: Herminia MONTOYA :1955 A ge:70 Y S ex:Male Address:[address] [place] [address], [phone] Subjective: * Chief Complaints: * d ue LDCT * Medical History: * Surgical History: * Hospitalization/Major Diagno stic Procedure: * Medications: Objective: * Vitals: * Physical Examination: Assessment: * Assessment: 1. E ncounter for screening for lung cancer - Z12.2 (Primary) Plan: * Treatment: * Procedure Codes: * true * Date: Generated for Nina carranza/Yaron/Tegan on: 08:41 AM EDT
--- NOTE | 2025-05-13 08:38 | CT_ITS ---
FINAL REPORT TECHNIQUE: Thin section axial images were obtained from the lung apices to the upper abdomen by computed tomography. Reformatted images were obtained and reviewed. This study was performed with techniques to keep radiation doses al low as reasonably achievable (ALARA). Individualized dose reduction techniques using automated exposure control or adjustment of mA and/or kV according to the patient's size were employed. CLINICAL HISTORY: SCREENING former smoker x10 years 2ppd x 10 years COMPARISON: None FINDINGS: CHEST CT LOW DOSE 70-year-old male, former smoker who quit 10 years ago, 35-dozl-axio history CTDI vol (mGy): 2.90 DLP (mGy-cm): 114.38 There is no axillary adenopathy. There is no mediastinal or hilar mass or adenopathy. The heart is normal in size. Coronary stents are noted. There is no pericardial or pleural effusion. Linear scar is present in the lung bases. There is peribronchial wall thickening in the bases, which may be secondary to chronic bronchitis. Lung window images demonstrate no suspicious infiltrate or nodule. Limited images of the upper abdomen are unremarkable. IMPRESSION: Lung-RADS category 1 S, the S designation for peribronchial wall thickening, possibly secondary to chronic bronchitis. Recommend 12 month follow up low dose chest CT. Reviewed, Interpreted and Dictated by Yasmany Mcdonald MD Transcribed by Jazmin Nice Authenticated and . [facility]
--- OUTSIDE RECORDS SUMMARY | 2025-05-13 08:40 | XMS_ITS | Patient Health Record ---
Author Organization [facility] Address [address] [id number] Care Team Providers Care Neonatal Specialist Name Role Phone Darwin Martinez Primary Care Provider Melita Lawrence Unavailable [phone] Allergies Allergen (clinical drug ingredient) Drug/Non Drug [...] Normal Performing Lab: Notes/Report: Test performed by [facility] [address] [place], [place] [address] [place] , [address], [place] [address] Radhames Storm MD, Boring Machine Set Up Operator Jig CLIA: [id number] Vitamin B12 852 569-5545 pg/mL P-Comprehensive Metabolic Pa dora (CMP) Reviewed date:04/29/2025 09:29:56 AM Interpretation:K 5.4, Glu 324, Creat 1.50, eGFR 50 Performing Lab: Notes/Report: Test performed by [facility] [address] [place], [place] [address] [address], [address], [place] [address] Radhames Storm MD, Boring Machine Set Up Operator Jig CLIA: [id number] Sodium 136 135-145 mmol/L Potassium 5.4 3.5-5.3 [...] 5.35 Performing Lab: Notes/Report: Test performed by [facility] [employer] [facility] [address] [place] [address] , [address], [place] [address] Radhames Storm MD, Boring Machine Set Up Operator Jig CLIA: [id number] Cholesterol 107 <200 mg/dL Triglycerides 174 <150 [...] Normal Performing Lab: Notes/Report: Test performed by [facility] [address] [place], [place] [address] [place] [address], [place] [address] Radhames Storm MD, Boring Machine Set Up Operator Jig CLIA: [id number] Phosphorus 3.4 2.5-4.5 mg/dL P-PSA Reviewed date:04/29/2025 09:29:56 AM Interpretation:3.09 Performing Lab: Notes/Report: Test performed by [facility] [address] [place], [place] [address] [place] , [address], [place] [address] Radhames Storm MD, Boring Machine Set Up Operator Jig CLIA: [id number] PSA 3.09 <4.00 ng/mL Please note this is an ultrasensitive PSA assay with a lower limit of detection of 0.014 ng/mL. This test is performed by the Christal ECLIA methodology. Values obtained with different assay methods or kits cannot be directly compared. P-Parathyroid Hormone (PTH) Intact Reviewed date:04/29/2025 09:29:56 AM Interpretation: Normal Performing Lab: Notes/Report: Test performed by [facility] [address] [place] [address] , [address], [place] [address] Radhames Storm MD, Boring Machine Set Up Operator Jig CLIA: [id number] Parathyroid Hormone (PTH) Intact 22.7 15.0-65.0 pg/mL P-Microalbumin/Creatinine, R andom Urine Sample Reviewed date:04/29/2025 09:29:57 AM Interpretation:Alb 165 Performing Lab: Notes/Report: Test performed by [facility] [address] [place] [address] , [place] [address] Radhames Storm MD, Boring Machine Set Up Operator Jig CLIA: [id number] Albumin/Creatinine Ratio, Urine 165 0-30 ug/m g Microalbumin, Urine, Random 21.5 Creatinine, Urine 130.6 P-Phosphorus Reviewed date:01/18/2025 01:29:05 PM Interpretation:Normal Performing Lab: Notes/Report: Test performed by [facility] [address] [place] [address] , [place] [address] Radhames Storm MD, Boring Machine Set Up Operator Jig CLIA: [id number] Phosphorus 3.0 2.5-4.5 mg/dL P-Lipid Panel Reviewed date:01/18/2025 01:29:05 PM Interpretation:trigs 175, hdl 27, chol/hdl 5.15 Performing Lab: Notes/Report: Test performed by [facility] [address] [place] [address] , [place] [address] Radhames Storm MD, Boring Machine Set Up Operator Jig CLIA: [id number] Cholesterol 139 <200 mg/dL Triglycerides 175 <150 [...] Results: 77 Units: mg/dL % Change: +50% P-Comprehensive Metabolic Pa dora (CMP) Reviewed date:01/18/2025 01:29:05 PM Interpretation:gluc 246, Cr 1.45, gfr 52 Performing Lab: Notes/Report: Test performed by [facility] [employer] [address] [place] [address] , [address], [place] [address] Radhames Storm MD, Boring Machine Set Up Operator Jig CLIA: [id number] Sodium 137 135-145 mmol/L Potassium 5.3 3.5-5.3 [...] 0.3 <0.2-1.2 mg/dL A/G Ratio 1.6 1.1-2.5 Glycohemoglobin A1c (in hous e) Reviewed date:01/18/2025 01:29:05 PM Interpretation:11.5% Performing Lab: Notes/Report: 11.5% glycohemoglobin 11.5% 5 - 6.5 % CBC Venipuncture (in house) Reviewed date:01/18/2025 01:29:05 [...] - 38 platlet 116 100 - 400 Glucose (In-House) Reviewed date:01/18/2025 01:29:05 PM Interpretation:243 Performing Lab: Notes/Report: 243 blood glucose 243 74 - 106 mg/dL Reason For Referral Diagnosis 1 Uncontrolled type 2 diabetes mellitus with hyperglycemia (E11.65) Referral Organization [facility] Referring Provider First Name Darwin Referring Provider Last Name Michelle Referring Provider Speciality Family [facility] Referred Provider Mick Lomeli Referred Provider Specialty Endocrinolog y General Notes Shanice Carlos 2024 11:46:33 AM > faxed to [facility] Endocrinology, Shanice Carlos 05/06/2025 09:22:51 AM > [facility] Endo has reached out twice to schedule but no answer from patient Referral Priority Routine Medications Medication SIG (Take, Route, Frequency, Duration) Notes Start Date End Date Status hydrOXYzine HCl 25 MG 1 tablet at bedtime as needed Orally daily; Duration: 90 days 04/29/2025 Active Atorvastatin Calcium 10 MG take 1 [...] by mouth once daily; Duration: 90 Active GLUCOMETER 1 METER TEST 3 TIMES A DAY OR DIRECTED; Duration: 30 DAYS *Please review for potential replacement for e-prescription and drug interaction check* 01/07/2020 Not-Taking Lancets 1 LANCET FINGERSTICK TEST 3 TIMES A DAY OR DIRECTED; Duration: 30 DAYS *Please review and pick correct strength-formulat ion from [employer] options. If intended option is not shown, discontinue and re-order from Quick Search* 01/07/2020 Not-Taking Aspirin 81 MG 1 tab(s) orally once a day; Duration: 90 days Active Accu-Chek Gracie Plus 1 TEST STRIP(S) FINGERSTICK TEST 3 TIMES A DAY OR DIRECTED; Duration: 30 DAYS *Please review and pick correct strength-formulat ion from [employer] options. If intended option is not shown, discontinue and re-order from Quick Search* 01/07/2020 Not-Taking Carvedilol 6.25 MG 1 tablet with food Orally Twice a day; Duration: 90 days 01/15/2025 Active BD Pen Needle Short U/F DIRECTED SUBCUTANEOUS TWO TIMES A DAY *Please review and pick correct strength-formulat ion from [employer] options. If intended option is not shown, discontinue and re-order from Quick Search* 03/08/2015 Not-Taking Toujeo SoloStar 300 UNIT/ML 30 units subcutaneously once a day Active Carvedilol 12.5 MG 1 tab(s) orally 2 times a day; Duration: 90 days Not-Taking BD Pen Needle Short U/F 31 GUAGE X 5/16 INCH 1 needle ONCE A DAY E11.9 *Please review and pick correct strength-formulat ion from [employer] options. If intended option is not shown, discontinue and re-order from Quick Search* Active metFORMIN HCl 500 MG take 2 tablets by mouth twice daily Orally Two times a day; Duration: 90 days Active Immunizations Vaccine Route Administration Date Status Comme nts Tetanus Tdap-Adacel (over 7yrs) IM Intramuscular 09/13/2022 Administered Prevnar (PCV13) IM Intramuscular 05/16/2021 Administered PNEUMOVAX 23 VACCINE IM Intramuscular 10/11/2016 Administe red PNEUMOVAX 23 VACCINE IM Intramuscular 09/13/2022 Administe red Fluzone Quad (6months&older) IM Intramuscular 07/18/2017 Administered Fluzone Quad (6months&older) IM Intramuscular 05/06/2019 Administered Fluzone High Dose (65yr and older) IM Intramuscular 05/16/2021 Administered Fluzone High Dose (65yr and older) IM Intramuscular 04/25/2023 Pending Fluzone High Dose (65yr and older) IM Intramuscular 04/27/2025 Administered COVID 19 Moderna Unknown 03/27/2021 Administered COVID 19 Moderna Unknown 04/24/2021 Administered Problems Problem Type SNOMED Code ICD Code Onset Dates Problem Status W/U Status Risk Notes Problem Type II diabetes mellitus without complication (561611219) Type 2 diabetes mellitus without complications (E11.9) Active confirmed Problem Essential hypertension (55715990) Essential hypertension (I10) Active confirmed Problem Mixed hyperlipidemia (349958916) Mixed hyperlipidemia (E78.2) Active confirmed Problem Primary insomnia (3475880) Primary insomnia (F51.01) Active confirmed Problem Insomnia (831414501) Other insomnia (G47.09) Active confirmed Problem Neuropathy (648482415) Neuropathy (G62.9) Active confirmed Problem Body mass index 30.00 to 34.99 (973480298709210) BMI 31.0-31.9,adult (Z68.31) Active confirmed Problem Atherosclerotic heart disease of ambler coronary artery without angina pectoris (513010593037465) Coronary artery disease involving ambler heart without angina pectoris, unspecified vessel or lesion type (I25.10) Active confirmed Problem Heart failure (88069932) Chronic congestive heart failure, unspecified heart failure type (I50.9) Active confirmed Problem Hyperglycemia due to type 2 diabetes mellitus (917290207634196) Uncontrolled type 2 diabetes mellitus with hyperglycemia (E11.65) Active confirmed Problem Diabetic peripheral neuropathy associated with type 2 diabetes mellitus (4885646025340) Type 2 diabetes mellitus with diabetic neuropathy, unspecified whether senior living insulin use (E11.40) Active confirmed Problem Chronic kidney disease stage 3A (151002726) Stage 3a chronic kidney disease (N18.31) Active confirmed Vital Signs Heart Rate 77 /min 04/27/2025 Blood pressure diastolic 72 mm Hg 04/27/2025 Height 70 in 04/27/2025 Blood pressure systolic 120 mm Hg 04/27/2025 Weight 221.8 lbs 04/27/2025 BMI 31.82 kg/m2 04/27/2025 Encounters Encounter Location Date [facility] [address] [place] [id number] 01/15/2025 Darwin [place] Type 2 diabetes rema itus without complications E11.9 ; Essential hypertension I10 ; Mixed hyperlipidemia E78.2 ; Stage 3a chronic kidney disease N18.31 ; Neuropathy G62.9 ; Chronic congestive heart failure, unspecified heart failure type I50.9 ; Colon cancer screening Z12.11 and Other insomnia G47.09 [facility] [address] [place], [place] [id number] 04/27/2025 Darwin [place] Type 2 diabetes rema itus without complications E11.9 ; Essential hypertension I10 ; Mixed hyperlipidemia E78.2 ; Stage 3a chronic kidney disease N18.31 ; Neuropathy G62.9 ; Chronic congestive heart failure, unspecified heart failure type I50.9 ; Coronary artery disease involving ambler heart without angina pectoris, unspecified vessel or lesion type I25.10 ; Prostate cancer screening Z12.5 ; Encounter for immunization Z23 ; Uncontrolled type 2 diabetes mellitus with hyperglycemia E11.65 ; 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 ; Type 2 diabetes mellitus with diabetic neuropathy, unspecified whether senior living insulin use E11.40 and BMI 31.0-31.9,adult Z68.31 [facility] [address] [place], [place] [id number] 04/29/2025 Darwin [place] [facility] [address] [place], [place] [id number] 06/19/2024 Darwin [place] Neuropathy G62.9 [facility] [address] [place], [place] [id number] 12/22/2024 Melita Crowdy [facility] [address] [place], [place] [id number] 01/18/2025 Darwin [place] [facility] [address] [place] [id number] 01/25/2025 Darwin [place] [facility] [address] [place], [place] [id number] 04/28/2025 Melita Crowdy [facility] [address] [place], [place] [id number] 05/03/2025 Darwin [place] Encounter for screen ing for lung cancer Z12.2 Assessments Encounter Date Diagnosis (ICD Code) Assessment Notes Treatment Notes Treatment Clinical Notes Section Notes 06/19/2024 Neuropathy (ICD-10 - G62.9) 01/15/2025 Type 2 diabetes mellitus without complications (ICD-10 - E11.9) 01/15/2025 Essential hypertension (ICD-10 - I10) 04/27/2025 Type 2 diabetes mellitus without complications (ICD-10 - E11.9) 04/27/2025 Essential hypertension (ICD-10 - I10) 05/03/2025 Encounter for screening for lung cancer (ICD-10 - Z12.2) 04/27/2025 Mixed hyperlipidemia (ICD-10 - E78.2) 01/15/2025 Mixed hyperlipidemia (ICD-10 - E78.2) 04/27/2025 Stage 3a chronic kidney disease (ICD-10 - N18.31) 01/15/2025 Stage 3a chronic kidney disease (ICD-10 - N18.31) 04/27/2025 Neuropathy (ICD-10 - G62.9) 01/15/2025 Neuropathy (ICD-10 - G62.9) 01/15/2025 Chronic congestive heart failure, unspecified heart failure type (ICD-10 - I50.9) 04/27/2025 Chronic congestive heart failure, unspecified heart failure type (ICD-10 - I50.9) 04/27/2025 Coronary artery disease involving ambler heart without angina pectoris, unspecified vessel or lesion type (ICD-10 - I25.10) 01/15/2025 Colon cancer screening (ICD-10 - Z12.11) 01/15/2025 Other insomnia (ICD-10 - G47.09) 04/27/2025 Prostate cancer screening (ICD-10 - Z12.5) [...] diabetes mellitus with diabetic neuropathy, unspecified whether senior living insulin use (ICD-10 - E11.40) 04/27/2025 BMI 31.0-31.9,adult (ICD-10 - Z68.31) Plan Of Treatment Pending Test Test Name Order Date CT Scan : Chest, low dose 05/03/2025 Cologuard 10/23/2023 Cologuard 01/15/2025 Next Appt Details Provider Name:Darwin smith, 10/26/2025 09:30:00 AM, [address], [address], [place], [place], [id number], Insurance Providers Payer Name Payer Address Payer Phone Subscriber Number Group Number Insured Name Patient Relationship to Insured Coverage Start Date Coverage End Date [employer] (MEDICARE) [address] [address] [place] [phone] [id number] Herminia Freeman Self - patient is the insured MEDICARE PART B [address] [address] [place] [address] [id number] Herminia Freeman Self - patient is the insured Medical (General) History Medical History History ICD Code Diabetes Hyperlipidemia Renal Failure Anxiety Neuropathy Surgical History Surgery Date(Month/Year) blood clot on brain as a child
--- OUTSIDE RECORDS SUMMARY | 2025-05-13 08:40 | XMS_ITS | Clinical Summary ---
Author Organization [facility] Address [address] [id number] Care Team Providers Care Swimming Pool Plasterer Helper Name Role Phone Darwin Martinez MD Primary Care Provider [phone] Allergies No known active allergies Medications metFORMIN (Glucophage) 500 MG tablet Take 1,000 mg by mouth 2 (two) times a day. 2 Active hydrOXYzine pamoate (Vistaril) 25 MG capsule Take 1 capsule by mouth every night. 2 Active gabapentin (Neurontin) 100 MG capsule Take 100 mg by mouth 2 (two) times a day. 2 Active fenofibrate (Triglide) 160 MG tablet Take 1 tablet by mouth 1 (one) time each day. 2 Active atorvastatin (Lipitor) 10 MG tablet Take 10 mg by mouth 1 (one) time each day. 2 Active carvedilol (Coreg) 12.5 MG tablet Take 1 tablet (12.5 mg total) by mouth 2 (two) times a day with meals. 60 tablet 11 2 Active furosemide (Lasix) 40 MG tablet Take 1 tablet (40 mg total) by mouth 1 (one) time each day if needed (Lower extremity swelling). 30 tablet 2 Active Active Problems Problem Noted Date Diagnosed Date Hypertensive emergency 12/18/2021 Acute pulmonary edema 12/18/2021 Hypomagnesemia 12/18/2021 Hypertension 02/08/2015 Hyperlipidemia 02/08/2015 Diabetes mellitus type 2, uncontrolled 5 Stage 3a chronic kidney disease 02/08/2015 Resolved Problems Problem Noted Date Diagnosed Date Resolved Date Acute respiratory failure with hypoxia 12/18/2021 05/02/2025 MINOO (acute kidney injury) 12/18/2021 Family History Medical History Relation Name Comments Other cancer Father Diabetes Mother Hypertension Mother Stroke Mother Relation Name Status Comments Father Mother Social History Tobacco Use Types Packs/Day Years Used Date Smoking Tobacco: Former Cigarettes Smokeless Tobacco: Current Chew Alcohol Use Standard Drinks/Week Comments Never 0 (1 standard drink = 0.6 oz pur e alcohol) Sex and Gender Information Value Date Recorded Sex Assigned at Not on file Legal Sex Male 7:04 PM EDT Gender Identity Not on file Sexual Orientation Not on file Last Filed Vital Signs Vital Sign Reading Time Taken Comments Blood Pressure 145/73 12/27/2021 5:13 PM EDT Pulse 99 12/27/2021 5:13 PM EDT Temperature 36.7 C (98.1 F) 12/27/2021 5:13 PM EDT Respiratory Rate 15 12/27/2021 5:13 PM EDT Oxygen Saturation 95% 12/27/2021 5:13 PM EDT Inhaled Oxygen Concentration - - Weight 96.2 kg (212 lb) 12/27/2021 12:16 PM EDT Height 175.3 cm (5' 9 ) 12/27/2021 12:16 PM EDT Body Mass Index 31.31 12/27/2021 12:16 PM EDT Plan of Treatment Health Maintenance Due Date Last Done Comments [facility]-Depression Screening 1956 [facility]-/Child/Adol SDOH Screenings 1955 [facility]- SDOH Screenings 1974 [facility]-Adult SDOH Screenings 1974 [facility]-DTaP,Tdap,and Td Vaccine s (1 - Tdap) 1975 CT Colonography 2001 Colonoscopy 2001 FIT-DNA 2001 FIT 2001 FOBT 2001 Sigmoidoscopy 2001 [facility]-Colorectal Cancer Screening 2001 [facility]-Zoster Vaccines (1 of 2) 2006 [facility]-Pneumococcal Vaccine: 50 + Years (2 of 2 - PCV20 or PCV21) 05/16/2022 05/16/2021 [id number] Vaccine (3 - season) 2025 04/24/2021, 03/27/2021 [facility]-Influenza Vaccine (#1) 04/12/202505/16, 05/06/2019, 07/18/2017 [facility]-RSV Vaccine: 60+ Years o r (1 - 1-dose 75+ series) 2031 [facility]-Diabetes: Hemoglobin A1C Discontinued 12/18/2021 HPV Vaccines Aged Out No longer eligi ble based on patient's age to complete this topic [facility]-HIB Vaccines Aged Out No longer e ligible based on patient's age to complete this topic [facility]-Hepatitis A Vaccines Aged Out No longer eligible based on patient's age to complete this topic [facility]-IPV Vaccines Aged Out No longer e ligible based on patient's age to complete this topic [facility]-Rotavirus Vaccines Aged Out No lo nger eligible based on patient's age to complete this topic Procedures Procedure Name Priority Date/Time Associated Diagnosis Comments HEMOGLOBIN A1C Add-On 12/18/2021 8:06 AM EDT from Last 3 Months or Most Recently Relevant to Health Maintenance Results * (ABNORMAL) Hemoglobin A1c (12/18/2021 8:06 AM EDT) Hemoglobin A1c 5.9(H) <5.7 % 12/18/2021 1:56 PM EDT [facility] Blood Venous blood specimen / Unknown Venipuncture / Unknown 12/18/2021 8:06 AM EDT 12/18/2021 8:11 AM EDT Narrative [facility] - 12/18/2021 1:56 PM EDT HA1C Interpretive Data: Diagnosis of Diabetes: Diabetic > or = 6.5% Pre-diabetic 5.7 to 6.4% Non-diabetic < or = 5.6% Glycemic Targets for Type I and Type II Diabetics: Non- Adults <7.0% Adults <6.0% Children and Adolescents <7.5% Source: [place] [employer]. Standards of medical care in diabetes,2017. Diabetes Care.2017:40 (suppl 1):S1-S135. HbA1c assay performed by an ion-exchange chromatography method that is certified traceable to the DCCT. us Jessica Hurley SONG WRITER, DNP LAB BLOOD ORDERABLES Fin al Result [facility] [address] [place] [address] from Last 3 Months or Most Recently Relevant to Health Maintenance Insurance [employer]M Advance Directives * Full Code (Latest Code Status on File) Date Activated Date Inactivated Comments 12/18/2021 11:11 AM 12/20/2021 1:04 PM Question Answer Comments Patient has decision-making capacity? Yes Care Teams Swimming Pool Plasterer Helper Relationship Specialty Start Date End Date Darwin Martinez MD [address] [facility] [address] [address] PCP - General 12/23/20
== END 2025-05-13 23:59 ==
LOC: RAD 08:36
PROVIDERS: PCP Family Medicine; Visit Provider Family Medicine
DX: Z12.2 Encounter for screening for malignant neoplasm of respiratory organs (principal); R91.8 Other nonspecific abnormal finding of lung field; Z87.891 Personal history of nicotine dependence; Z95.5 Presence of coronary angioplasty implant and graft
CPT/HCPCS: 71271

== ENCOUNTER 2025-06-03 08:22 | Outpatient (CLI) | payer MEDICARE, SELFPAY ==
--- OUTSIDE RECORDS SUMMARY | 2024-04-23 05:15 | XMS_ITS ---
Author Organization [facility] Address [address] [facility] [address] [place] [phone] Care Team Providers Care Magnet Placer Name Role Phone Darwin Martinez Primary Care Provider [phone] Melita Lawrence Unavailable [phone] Allergies Allergen (clinical drug ingredient) Drug/Non Drug [...] 53 Performing Lab: Notes/Report: Test performed by [facility] [employer] [address] [place] [address] , [address], [place] [address] Radhames Storm MD, Odd Shoe Examiner CLIA: [id number] Sodium 137 135-145 mmol/L Potassium 5.5 3.5-5.3 [...] 26 Performing Lab: Notes/Report: Test performed by [facility] [address] [place] [address] , [address], [place] [address] Radhames Storm MD, Odd Shoe Examiner CLIA: [id number] Cholesterol 96 <200 mg/dL Triglycerides 94 <150 [...] Interpretation:Normal Performing Lab: Notes/Report: Test performed by [facility] [address] [place] [address] , [address], [place] [address] Radhames Storm MD, Odd Shoe Examiner CLIA: [id number] PSA 1.99 <4.00 ng/mL Please note this is an ultrasensitive PSA assay with a lower limit of detection of 0.014 ng/mL. This test is performed by the Christal ECLIA methodology. Values obtained with different assay methods or kits cannot be directly compared. P-TSH reflex to FT4 Reviewed date:05/06/2024 08:43:17 AM Interpretation:Normal Performing Lab: Notes/Report: Test performed by [facility] [employer] [facility] , [address], [place] [address] Radhames Storm MD, Odd Shoe Examiner CLIA: [id number] TSH reflex to FT4 2.56 0.43-5.25 mU/L [...] review and pick correct strength-formulati on from [employer] options. If intended option is not shown, [...] review and pick correct strength-formulati on from [employer] options. If intended option is not shown, discontinue and re-order from Quick Search* 01/07/2020 Active Carvedilol 12.5 MG 1 tab(s) orally 2 times a day; Duration: 90 days Active BD Pen Needle Short U/F DIRECTED SUBCUTANEOUS TWO TIMES A DAY *Please review and pick correct strength-formulati on from [employer] options. If intended option is not shown, [...] review and pick correct strength-formulati on from [employer] options. If intended option is not shown, [...] time; Duration: 90 days Active Vital Signs Blood pressure systolic 130 mm Hg 04/23/20 24 Blood pressure diastolic 80 mm Hg 024 Heart Rate 81 /min 04/23/2024 Height 70 in 04/23/2024 Weight 224.6 lbs 04/23/2024 BMI 32.22 kg/m2 04/23/2024 Encounters Encounter [facility] Date [facility] [address] [phone] 04/23/2024 Melita Lawrence Type 2 diabetes rema itus without complications E11.9 ; Essential hypertension I10 ; Neuropathy G62.9 ; Coronary artery disease involving [place] heart without angina pectoris, unspecified vessel or [...] - G62.9) 04/23/2024 Coronary artery disease involving [place] heart without angina pectoris, unspecified vessel or [...] gilmore review and pick correct strength-formulation from [employer] options. If intended option is not shown, [...] Assessment Notes Coronary artery disease invo lving [place] heart without angina pectoris, unspecified vessel or [...] [address], [address], [place], [place], [id number], Progress Notes * Tamera FREEMANOB: 6 (70 yo M)Acc No.[id number]:04/23/2024 Progress Notes Patient: Herminia MONTOYA Provider: CURT Malin :1955 A ge:69 Y S ex:Male Date:04/23/2024 Address:[facility] [place], [id number] Pcp:Darwin Martinez Subjective: * Chief Complaints: * [...] *Please review and pick correct strength-formulation from [employer] options. If intended option is not shown, [...] *Please review and pick correct strength-formulation from [employer] options. If intended option is not shown, [...] 4 . C oronary artery disease involving [place] heart without angina pectoris, unspecified vessel or [...] > see TE 3.?Coronary artery disease involving [place] heart without angina pectoris, unspecified vessel or [...] P SA 1.99 <4.00 - ng/mL * NateroselynMelita Thayer 05/06/2024 8: 42:44 AM > see TE 7.?Others? Notes: He states he sent his cologuard back a while ago. Will check on results. He is seeing an eyedoctor in May.?? * Procedure Codes: 3 6416 CAPILLARY BLOOD DRAW, 66618 GLYCATED HEMOGLOBIN TEST, Modifiers: QW , 53546 CBC WITH AUTO DIFF, 27874 VENIPUNCT, ROUTINE* * Follow Up: v ia phone to report test results * Images: Billing Information: * Visit Code: 40640 Office Visit, Est Pt., Level 4. * Procedure Codes: 79607 CAPILLARY BLOOD DRAW. 57012 GLYCATED HEMOGLOBIN TEST. Modifiers: QW 10093 CBC WITH AUTO DIFF. 21639 VENIPUNCT, ROUTINE*. * Electronic signature of CURT Stokes on 06/03/2025 at 08:35 AM EDT Sign off status: Pending * Provider: CURT Malin Date: 0 04/23/2024 Generated for Nina carranza/Yaron/Tegan on: 1 08:35 AM EDT History and Physical Notes * HPI (History [...]
--- OUTSIDE RECORDS SUMMARY | 2024-10-22 05:00 | XMS_ITS ---
Author Organization [facility] Address [address] [facility] [address] [facility] [address] [place] [phone] Care Team Providers Care Physician Office Rep Name Role Phone Darwin Martinez Primary Care Provider [phone] Melita Lawrence [phone] Allergies Allergen (clinical drug ingredient) Drug/Non Drug Allergy documented on EMR Reaction Allergy Type Onset Date Status lisinopril Lisinopril dry cough Drug Allergy Activ e REASON FOR VISIT 6 months, Needs labs, low dose chest CT, colon cancer screening, diabetic eye exam, & shingles vaccine Encounters Encounter Location Date Provider Diagnosis [facility] [address] [facility] [address] [facility] [address] [place] [phone] 10/22/2024 Melita Lawrence Plan Of Treatment Next Appt Details Provider Name:Darwin Fonseca ry, 10/26/2025 09:30:00 AM, [address] [facility], [address], [facility] [place], [phone], Progress Notes * PETE AllieDOB: 6 (70 yo M)Acc No.[id number]:10/22/2024 Progress Notes Patient: Herminia MONTOYA Provider: CURT Malin :1955 A ge:69 Y S ex:Male Date:10/22/2024 Address:[address] [place], [place] [id number] Pcp:Darwin Martinez Subjective: * Chief Complaints: * [...] signature of CURT Stokes on 06/03/2025 at 08:36 AM EDT Sign off status: Pending * Provider: CURT Malin Date: 0 10/22/2024 Generated for Nina carranza/Yaron/eTransmitting on: 1 08:36 AM EDT History and Physical Notes * HPI (History of Present Illness) Category Sub-Category Detail Notes Category Not es HPI Patient is here today for 6 mo c heck-up. Pt states she is doing well and does not have any concerns. Pt is fasting today
--- OUTSIDE RECORDS SUMMARY | 2025-01-15 06:15 | XMS_ITS ---
Author Organization [facility] Address [address] [id number] Care Team Providers Care Licensed Insurance Sales Agent Name Role Phone Darwin Martinez Primary Care Provider Melita Lawrence Unavailable [phone] Allergies Allergen (clinical drug ingredient) Drug/Non Drug [...] 52 Performing Lab: Notes/Report: Test performed by [facility] [address] [place] [address] , [address], [place] [address] Radhames Storm MD, Physician Practice Coordinator CLIA: [id number] Sodium 137 135-145 mmol/L Potassium 5.3 3.5-5.3 [...] 5.15 Performing Lab: Notes/Report: Test performed by [facility] [address] [place] [address] , [address], [place] [address] Radhames Storm MD, Physician Practice Coordinator CLIA: [id number] Cholesterol 139 <200 mg/dL Triglycerides 175 <150 [...] Interpretation:Normal Performing Lab: Notes/Report: Test performed by [facility], [place] [id number] [facility] , [address], [place] [address] Radhames Storm MD, Physician Practice Coordinator CLIA: [id number] Phosphorus 3.0 2.5-4.5 mg/dL REASON FOR VISIT [...] review and pick correct strength-formulat ion from [employer] options. If intended option is not shown, discontinue and re-order from Quick Search* 03/08/2015 Not-Taking metFORMIN HCl 500 MG take 2 tablets by mouth twice daily Orally Two times a day; Duration: 90 days Active BD Pen Needle Short U/F 31 GUAGE X 5/16 INCH 1 needle ONCE A DAY E11.9 *Please review and pick correct strength-formulat ion from [employer] options. If intended option is not shown, discontinue and re-order from Quick Search* Active Toujeo SoloStar 300 UNIT/ML 30 units subcutaneously once a day Active Accu-Chek Gracie Plus 1 TEST STRIP(S) FINGERSTICK TEST 3 TIMES A DAY OR DIRECTED; Duration: 30 DAYS *Please review and pick correct strength-formulat ion from [employer] options. If intended option is not shown, discontinue and re-order from Quick Search* 01/07/2020 Not-Taking Lancets 1 LANCET FINGERSTICK TEST 3 TIMES A DAY OR DIRECTED; Duration: 30 DAYS *Please review and pick correct strength-formulat ion from [employer]G options. If intended option is not shown, [...] Duration: 90 days 01/15/2025 Active Vital Signs Blood pressure systolic 120 mm Hg 01/16/20 25 Blood pressure diastolic 78 mm Hg 025 Heart Rate 86 /min 01/15/2025 Height 70 in 01/15/2025 Weight 216.2 lbs 01/15/2025 BMI 31.02 kg/m2 01/15/2025 Encounters Encounter Location Date Provider Diagnosis [facility] [address] [facility] [address] [place], [place] [id number] 01/15/2025 Darwin Martinez Type 2 diabetes rema [...] 01/15/2025 Pending Test Test Name Order Date [facility] 01/15/2025 Next Appt Details Follow Up: 3.5 months, Reaso n: Provider Name:Darwin Fosneca , 10/26/2025 09:30:00 AM, [address] [facility] [address] [facility], [address], [place], [place], [id number], Progress Notes * PETETamera SOSAOB: 6 (70 yo M)Acc No.[id number]:01/15/2025 Progress Notes Patient: Herminia MONTOYA Provider: Javier Martinez M.D. :1955 A ge:69 Y S ex:Male Date:01/15/2025 Address:[address] [place] [id number] Subjective: * Chief Complaints: * 1 . [...] *Please review and pick correct strength-formulation from [employer] options. If intended option is not shown, [...] G 2211 Complex e/[place], [address] GLUCOSE TEST, 01907 GLYCATED HEMOGLOBIN TEST, Modifiers: QW , [address]6596 CBC WITH AUTO DIFF, 3046F HEMOGLOBIN A1C LEVEL > 9.0%, G8783 BP SCR PRFRM RCMDD DEFIND SCR INTVL, G8752 MOST RECENT SYSTOLIC BP < 140MM HG, G8754 MOST RECENT DIASTOLIC BP < 90MM HG, 1036F TOBACCO NON-USER * Follow Up: 3 .5 months * Images: Billing Information: * Visit Code: 10191 Office Visit, Est Pt., Level 4. * Procedure Codes: G2211 Complex e/[place]. [address] GLUCOSE TEST. 50825 GLYCATED HEMOGLOBIN TEST. Modifiers: QW 60416 CBC WITH AUTO DIFF. 3046F HEMOGLOBIN A1C LEVEL > 9.0%. G8783 BP SCR PRFRM RCMDD DEFIND SCR INTVL. G8752 MOST RECENT SYSTOLIC BP < 140MM HG. G8754 MOST RECENT DIASTOLIC BP < 90MM HG. 1036F TOBACCO NON-USER. * Electronic signature of Celina Martinez MD on 06/03/2025 at 08:36 AM EDT Sign off status: Pending * Provider: Javier Martinez M.D. Date: 0 01/15/2025 Generated for Nina carranza/Yaron/Krishnasmitting on: 1 08:36 AM EDT History and [...]
--- OUTSIDE RECORDS SUMMARY | 2025-04-27 05:45 | XMS_ITS ---
Author Organization [facility] Address [address] [facility] [address] [place] [phone] Care Team Providers Care Car Dumper Operator Helper Name Role Phone Darwin Martinez Primary Care Provider [phone] Melita Lawrence Unavailable [phone] Allergies Allergen (clinical drug ingredient) Drug/Non Drug [...] Normal Performing Lab: Notes/Report: Test performed by [facility] [address] [place], [place] [address] [place] , [address], [place] [address] Radhames Storm MD, [employer] CLIA: [id number] Vitamin B12 640 266-3137 pg/mL P-Comprehensive Metabolic Pa dora (CMP) Reviewed date:04/29/2025 09:29:56 AM Interpretation:K 5.4, Glu 324, Creat 1.50, eGFR 50 Performing Lab: Notes/Report: Test performed by [facility] [address] [place] [address] [address]enny [address], [address], [place] [address] Radhames Storm MD, [employer] CLIA: [id number] Sodium 136 135-145 mmol/L Potassium 5.4 3.5-5.3 [...] 5.35 Performing Lab: Notes/Report: Test performed by [facility] [address] [place] [address] , [address], [place] [address] Radhames Storm MD, [employer] CLIA: [id number] Cholesterol 107 <200 mg/dL Triglycerides 174 <150 [...] Normal Performing Lab: Notes/Report: Test performed by [facility] [address] [place], [place] [address] [place] [address], [place] [address] Radhames Storm MD, [employer] CLIA: [id number] Phosphorus 3.4 2.5-4.5 mg/dL P-PSA Reviewed date:04/29/2025 09:29:56 AM Interpretation:3.09 Performing Lab: Notes/Report: Test performed by [facility] [address] [place] [address] [place] [address] Radhames Storm MD, [employer] CLIA: [id number] PSA 3.09 <4.00 ng/mL Please note this is an ultrasensitive PSA assay with a lower limit of detection of 0.014 ng/mL. This test is performed by the Christal ECLIA methodology. Values obtained with different assay methods or kits cannot be directly compared. P-Parathyroid Hormone (PTH) Intact Reviewed date:04/29/2025 09:29:56 AM Interpretation: Normal Performing Lab: Notes/Report: Test performed by [facility] [employer] [address] , [place] [address] Radhames Storm MD, [employer] CLIA: [id number] Parathyroid Hormone (PTH) Intact 22.7 15.0-65.0 pg/mL P-Microalbumin/Creatinine, R andom Urine Sample Reviewed date:04/29/2025 09:29:57 AM Interpretation:Alb 165 Performing Lab: Notes/Report: Test performed by [employer] [employer] [address] , [address], [place] [address] Radhames Storm MD, [employer] CLIA: [id number] Albumin/Creatinine Ratio, Urine 165 0-30 ug/m g Microalbumin, Urine, Random 21.5 Creatinine, Urine 130.6 Reason For Referral Diagnosis 1 Uncontrolled type 2 diabetes mellitus with hyperglycemia (E11.65) Referral Organization [facility] Referring Provider First Name Darwin Referring Provider Last Name Michelle Referring Provider Speciality Family [facility] Referred Provider Mick Lomeli Referred Provider Specialty Endocrinolog y General Notes Shanice Carlos 2024 11:46:33 AM > faxed to [facility] EndocrinologyBreanna Brynn 05/06/2025 09:22:51 AM > [facility] Endo has reached out twice to schedule [...] review and pick correct strength-formulat ion from [employer] options. If intended option is not shown, [...] review and pick correct strength-formulat ion from [employer] options. If intended option is not shown, discontinue and re-order from Quick Search* 01/07/2020 Not-Taking Accu-Chek Gracie Plus 1 TEST STRIP(S) FINGERSTICK TEST 3 TIMES A DAY OR DIRECTED; Duration: 30 DAYS *Please review and pick correct strength-formulat ion from [employer] options. If intended option is not shown, discontinue and re-order from Quick Search* 01/07/2020 Not-Taking BD Pen Needle Short U/F DIRECTED SUBCUTANEOUS TWO TIMES A DAY *Please review and pick correct strength-formulat ion from [employer] options. If intended option is not shown, [...] Hyperglycemia due to type 2 diabetes mellitus ([id number]) Uncontrolled type 2 diabetes mellitus with hyperglycemia (E11.65) Active confirmed Problem Diabetic peripheral neuropathy associated with type 2 diabetes mellitus (6921993062445) Type 2 diabetes mellitus with diabetic neuropathy, unspecified whether assisted insulin use (E11.40) Active confirmed Problem Body mass index 30.00 to 34.99 ([id number]) BMI 31.0-31.9,adult (Z68.31) Active confirmed Vital Signs Blood pressure systolic 120 mm Hg 04/27/20 25 Blood pressure diastolic 72 mm Hg 025 Heart Rate 77 /min 04/27/2025 Height 70 in 04/27/2025 Weight 221.8 lbs 04/27/2025 BMI 31.82 kg/m2 04/27/2025 Encounters Encounter Location Date Provider Diagnosis [facility] [place] [address] [facility] [address] [place] [address] [place]HI [id number] 04/27/2025 Darwin Martinez Type 2 diabetes rema itus without complications E11.9 ; Essential hypertension I10 ; Mixed hyperlipidemia E78.2 ; Stage 3a chronic kidney disease N18.31 ; Neuropathy G62.9 ; Chronic congestive heart failure, unspecified heart failure type I50.9 ; Coronary artery disease involving nenana heart without angina pectoris, unspecified vessel or lesion type I25.10 ; Prostate cancer screening Z12.5 ; Encounter for immunization Z23 ; Uncontrolled type 2 diabetes mellitus with hyperglycemia E11.65 ; 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 ; Type 2 diabetes mellitus with diabetic neuropathy, unspecified whether management trainee marketing insulin use E11.40 and BMI 31.0-31.9,adult Z68.31 [...] - I50.9) 04/27/2025 Coronary artery disease involving nenana heart without angina pectoris, unspecified vessel or [...] diabetes mellitus with diabetic neuropathy, unspecified whether management trainee marketing insulin use (ICD-10 - E11.40) 04/27/2025 BMI [...] Fonseca ry, 10/26/2025 09:30:00 AM, [address] [facility] [address] [facility], [address] , [place], [place], [id number], Progress Notes * CHANOTamera SOSAOB: 6 (70 yo M)Acc No.[id number]:04/27/2025 Progress Notes Patient: Herminia MONTOYA Provider: Javier Martinez M.D. :1955 A ge:70 Y S ex:Male Date:04/27/2025 Address:[address] [place] [id number] Subjective: * Chief Complaints: * 1 . [...] *Please review and pick correct strength-formulation from [employer] options. If intended option is not shown, [...] review and pick correct strength- formulation from [employer] options. If intended option is not shown, discontinue and re-order from Quick Search*, Not-Taking Accu-Chek Gracie Plus 1 TEST STRIP(S) FINGERSTICK TEST 3 TIMES A DAY OR DIRECTED , Notes to Pharmacist: *Please review and pick correct strength-formulation from [employer] options. If intended option is not shown, [...] 7 . C oronary artery disease involving nenana heart without angina pectoris, unspecified vessel or lesion type - I25.10 8 . P rostate cancer screening - Z12.5 9. E ncounter for immunization - Z23 1 0. U ncontrolled type 2 diabetes mellitus with hyperglycemia - E11.65 1 1. C hronic kidney disease due to diabetes mellitus - E11.22 1 2. T ype 2 diabetes mellitus with diabetic neuropathy, unspecified whether assisted insulin use - E11.40 1 3. B [place] 31.0-31.9,adult - Z68.31 Plan: * Treatment: Value [...] AM)?Normal* Value Reference Range V itamin B12 651 222-3111 - pg/mL * Jacqueline Pinzon 04/29/2025 09: [...] G 2211 Complex e/[place], [address] GLUCOSE TEST, 17761 GLYCATED HEMOGLOBIN TEST, Modifiers: QW , 3046F [...] * Images: Billing Information: * Visit Code: 52064 Office Visit, Est Pt., Level 4. * Procedure Codes: G2211 Complex e/[place]. [address] GLUCOSE TEST. 71094 GLYCATED HEMOGLOBIN TEST. Modifiers: QW 3046F HEMOGLOBIN A1C LEVEL > 9.0%. 1036F TOBACCO NON-USER. G8950 PREHTN/HTN BP DOC INDCD F/U DOC. G8752 MOST RECENT SYSTOLIC BP < 140MM HG. G8754 MOST RECENT DIASTOLIC BP < 90MM HG. 3074F SYST BP LT 130 MM HG. 3078F DIAST BP < 80 MM HG. * Electronic signature of Celina Martinez MD on 06/03/2025 at 08:35 AM EDT Sign off status: Pending * Provider: Javier Martinez M.D. Date: 0 04/27/2025 Generated for Nina carranza/Yaron/Tegan on: 1 08:35 [...]
--- OUTSIDE RECORDS SUMMARY | 2025-05-03 07:05 | XMS_ITS ---
Author Organization [facility] Address [address] [place] [address] [address] [facility] [address] [place] Tor[place] [phone] Care Team Providers Care Coil Cutter Name Role Phone Michelle Darwin Primary Care Provider Melita Lawrence Unavailable [phone] Results Component Value Reference Range Notes CT Scan : Chest, low dose Reviewed date:05/14/2025 11:23:52 AM Interpretation:Chronic Bronchitis, 1 Year F/U Performing Lab: Notes/Report: Chronic Bronchitis, 1 Year F/U REASON FOR VISIT due LDCT Encounters Encounter Location Date Provider Diagnosis [facility] [address] [facility] [address] [place] [phone] 05/03/2025 Darwin Martinez Encounter for screening for lung cancer Z12.2 Assessments Encounter Date Diagnosis (ICD Code) Assessment Notes Treatment Notes Treatment Clinical Notes Section Notes 05/03/2025 Encounter for screening for lung cancer (ICD-10 - Z12.2) Plan Of Treatment Next Appt Details Provider Name:Darwin Fonseca ry, 10/26/2025 09:30:00 AM, [address] [facility], [address], [place], [phone], Progress Notes * Tamera FREEMANOB: (70 yo M)Acc No.[id number]:05/03/2025 Patient: Herminia MONTOYA :1955 A ge:70 Y S ex:Male Address:[address] [place] [address], [place], [phone] Subjective: * Chief Complaints: * d ue LDCT * Medical History: * Surgical History: * Hospitalization/Major Diagno stic Procedure: * Medications: Objective: * Vitals: * Physical Examination: Assessment: * Assessment: 1. E ncounter for screening for lung cancer - Z12.2 (Primary) Plan: * Treatment: * Procedure Codes: * true * Date: Generated for Nina carranza/Yaron/Tegan on: 08:36 AM EDT
--- OUTSIDE RECORDS SUMMARY | 2025-06-03 08:36 | XMS_ITS | Clinical Summary ---
Author Organization [facility] Address [address] [id number] Care Team Providers Care Concrete Engineering Technician Name Role Phone Darwin Martinez MD Primary Care Provider [phone] Allergies No known active allergies Medications metFORMIN [...] 2 - PCV20 or PCV21) 05/16/2022 05/16/2021 [id number] Vaccine (3 - season) 2025 04/24/2021, 03/27/2021 [...] Adults <6.0% Children and Adolescents <7.5% Source: [place] [employer]. Standards of medical care in diabetes,2017. Diabetes Care.2017:40 (suppl 1):S1-S135. HbA1c assay performed by an ion-exchange chromatography method that is certified traceable to the DCCT. us Jessica Hurley LUMBER CHECKER, DNP LAB BLOOD ORDERABLES Fin al Result [facility] [address] [place] [address] from Last 3 Months or Most Recently Relevant to Health Maintenance Insurance [employer] Advance Directives * Full Code (Latest Code Status on File) Date Activated Date Inactivated Comments 12/18/2021 11:11 AM 12/20/2021 1:04 PM Question Answer Comments Patient has decision-making capacity? Yes Care Teams Concrete Engineering Technician Relationship Specialty Start Date End Date Darwin [place] MD [address] [facility] [address], [place] [address] PCP - General 12/23/20
--- OUTSIDE RECORDS SUMMARY | 2025-06-03 08:36 | XMS_ITS | Patient Health Record ---
Author Organization [facility] Address [address] [id number] Care Team Providers Care Topline Beading Machine Tender Name Role Phone Darwin Martinez Primary Care Provider Melita Lawrence Unavailable [phone] Allergies Allergen (clinical drug ingredient) Drug/Non Drug [...] Normal Performing Lab: Notes/Report: Test performed by [facility] [address] [place], [place] [address] [place] , [address], [place] [address] Radhames Storm MD, Television Schedule Coordinator CLIA: [id number] Vitamin B12 [phone] pg/mL P-Comprehensive Metabolic Pa dora (CMP) Reviewed date:04/29/2025 09:29:56 AM Interpretation:K 5.4, Glu 324, Creat 1.50, eGFR 50 Performing Lab: Notes/Report: Test performed by [facility] [address] [place], [place] [address] [address], [address], [place] [address] Radhames Storm MD, Television Schedule Coordinator CLIA: [id number] Sodium 136 135-145 mmol/L Potassium 5.4 3.5-5.3 [...] 5.35 Performing Lab: Notes/Report: Test performed by [facility] [employer] [address] [place] [address] , [address], [place] [address] Radhames Storm MD, Television Schedule Coordinator CLIA: [id number] Cholesterol 107 <200 mg/dL Triglycerides 174 <150 [...] Normal Performing Lab: Notes/Report: Test performed by [facility] [address] [place], [place] [address] [place] [address], [place] [address] Radhames Storm MD, Television Schedule Coordinator CLIA: [id number] Phosphorus 3.4 2.5-4.5 mg/dL P-PSA Reviewed date:04/29/2025 09:29:56 AM Interpretation:3.09 Performing Lab: Notes/Report: Test performed by [facility] [address] [place], [place] [address] [place] , [address], [place] [address] Radhames Storm MD, Television Schedule Coordinator CLIA: [id number] PSA 3.09 <4.00 ng/mL Please note this is an ultrasensitive PSA assay with a lower limit of detection of 0.014 ng/mL. This test is performed by the Christal ECLIA methodology. Values obtained with different assay methods or kits cannot be directly compared. P-Parathyroid Hormone (PTH) Intact Reviewed date:04/29/2025 09:29:56 AM Interpretation: Normal Performing Lab: Notes/Report: Test performed by [facility] [address] [place] [address] , [address], [place] [address] Radhames Storm MD, Television Schedule Coordinator CLIA: [id number] Parathyroid Hormone (PTH) Intact 22.7 15.0-65.0 pg/mL P-Microalbumin/Creatinine, R andom Urine Sample Reviewed date:04/29/2025 09:29:57 AM Interpretation:Alb 165 Performing Lab: Notes/Report: Test performed by [facility] [address] [place] [address] , [address], [place] [address] Radhames Storm MD, Television Schedule Coordinator CLIA: [id number] Albumin/Creatinine Ratio, Urine 165 0-30 ug/m g Microalbumin, Urine, Random 21.5 Creatinine, Urine 130.6 Glucose (In-House) Reviewed date:01/18/2025 01:29:05 PM Interpretation:243 [...] - 6.5 % P-Comprehensive Metabolic Pa dora ([facility]) Reviewed date:01/18/2025 01:29:05 PM Interpretation:gluc 246, Cr 1.45, gfr 52 Performing Lab: Notes/Report: Test performed by [facility] [address] [place] [address] , [address], [place] [address] Radhames Storm MD, Television Schedule Coordinator CLIA: [id number] Sodium 137 135-145 mmol/L Potassium 5.3 3.5-5.3 [...] 5.15 Performing Lab: Notes/Report: Test performed by [facility] [address] [place] [address] , [address], [place] [address] Radhames Storm MD, Television Schedule Coordinator CLIA: [id number] Cholesterol 139 <200 mg/dL Triglycerides 175 <150 [...] Interpretation:Normal Performing Lab: Notes/Report: Test performed by [facility] [address] [place] [address] , [address], [place] [address] Radhames Storm MD, Television Schedule Coordinator CLIA: [id number] Phosphorus 3.0 2.5-4.5 mg/dL CT Scan : Chest, low dose Reviewed date:05/14/2025 11:23:52 AM Interpretation:Chronic Bronchitis, 1 Year F/U Performing Lab: Notes/Report: Chronic Bronchitis, 1 Year F/U Reason For Referral Diagnosis 1 Uncontrolled type 2 diabetes mellitus with hyperglycemia (E11.65) Referral Organization [facility] Referring Provider First Name Darwin Referring Provider Last Name Michelle Referring Provider Speciality [facility] Referred Provider Mick Lomeli Referred Provider Specialty Endocrinolog y General Notes Shanice Carlos 2024 11:46:33 AM > faxed to [facility] Endocrinology, Shanice Carlos 05/06/2025 09:22:51 AM > [facility] Endo has reached out twice to [...] review and pick correct strength-formulat ion from [employer] options. If intended option is not shown, discontinue and re-order from Quick Search* 01/07/2020 Not-Taking Aspirin 81 MG 1 tab(s) orally once a day; Duration: 90 days Active Accu-Chek Gracie Plus 1 TEST STRIP(S) FINGERSTICK TEST 3 TIMES A DAY OR DIRECTED; Duration: 30 DAYS *Please review and pick correct strength-formulat ion from [employer] options. If intended option is not shown, discontinue and re-order from Quick Search* 01/07/2020 Not-Taking Carvedilol 6.25 MG 1 tablet with food Orally Twice a day; Duration: 90 days 01/15/2025 Active BD Pen Needle Short U/F DIRECTED SUBCUTANEOUS TWO TIMES A DAY *Please review and pick correct strength-formulat ion from [employer] options. If intended option is not shown, [...] review and pick correct strength-formulat ion from [employer] options. If intended option is not shown, discontinue and re-order from Quick Search* Active metFORMIN HCl 500 MG take 2 tablets by mouth twice daily Orally Two times a day; Duration: 90 days Active Immunizations Vaccine Route Administration Date Status Comme nts COVID 19 Moderna Unknown 03/27/2021 Administered COVID 19 Moderna Unknown 04/24/2021 Administered Fluzone High Dose (65yr and older) IM Intramuscular 05/16/2021 Administered Fluzone High Dose (65yr and older) IM Intramuscular 04/25/2023 Pending Fluzone High Dose (65yr and older) IM Intramuscular 04/27/2025 Administered Fluzone Quad (6months&older) IM Intramuscular 07/18/2017 Administered Fluzone Quad (6months&older) IM Intramuscular 05/06/2019 Administered PNEUMOVAX 23 VACCINE IM Intramuscular 10/11/2016 Administe red PNEUMOVAX 23 VACCINE IM Intramuscular 09/13/2022 Administe red Prevnar (PCV13) IM Intramuscular 05/16/2021 Administered Tetanus Tdap-Adacel (over 7yrs) IM Intramuscular 09/13/2022 Administered Problems Problem Type SNOMED Code ICD Code Onset Dates Problem Status W/U Status Risk Notes Problem Type II diabetes mellitus without complication (321348864) Type 2 diabetes mellitus without complications (E11.9) Active confirmed Problem Essential hypertension (86313223) Essential hypertension (I10) Active confirmed Problem Mixed hyperlipidemia (946730582) Mixed hyperlipidemia (E78.2) Active confirmed Problem Primary insomnia (4447307) Primary insomnia (F51.01) Active confirmed Problem Insomnia (096668294) Other insomnia (G47.09) Active confirmed Problem Neuropathy (730239913) Neuropathy (G62.9) Active confirmed Problem Body mass index 30.00 to 34.99 (477121604725190) BMI 31.0-31.9,adult (Z68.31) Active confirmed Problem Atherosclerotic heart disease of [place] coronary artery without angina pectoris (587191873649955) Coronary artery disease involving [place] heart without angina pectoris, unspecified vessel or lesion type (I25.10) Active confirmed Problem Heart failure (30329975) Chronic congestive heart failure, unspecified heart failure type (I50.9) Active confirmed Problem Hyperglycemia due to type 2 diabetes mellitus (720910630890068) Uncontrolled type 2 diabetes mellitus with hyperglycemia (E11.65) Active confirmed Problem Diabetic peripheral neuropathy associated with type 2 diabetes mellitus (7332719620658) Type 2 diabetes mellitus with diabetic neuropathy, unspecified whether buttermaker insulin use (E11.40) Active confirmed Problem Chronic kidney disease stage 3A (782797044) Stage 3a chronic kidney disease (N18.31) Active confirmed Vital Signs Heart Rate 77 /min 04/27/2025 Blood pressure diastolic 72 mm Hg 04/27/2025 Height 70 in 04/27/2025 Blood pressure systolic 120 mm Hg 04/27/2025 Weight 221.8 lbs 04/27/2025 BMI 31.82 kg/m2 04/27/2025 Encounters Encounter [facility] Date Provider [facility] [address] [facility] [address] [facility] [address] [place], [place] [id number] 01/15/2025 Darwin [place] Type 2 diabetes rema itus without complications E11.9 ; Essential hypertension I10 ; Mixed hyperlipidemia E78.2 ; Stage 3a chronic kidney disease N18.31 ; Neuropathy G62.9 ; Chronic congestive heart failure, unspecified heart failure type I50.9 ; Colon cancer screening Z12.11 and Other insomnia G47.09 [facility] [address] [place], [place] [id number] 04/27/2025 Darwin [place] Type 2 diabetes rema itus without complications E11.9 ; Essential hypertension I10 ; Mixed hyperlipidemia E78.2 ; Stage 3a chronic kidney disease N18.31 ; Neuropathy G62.9 ; Chronic congestive heart failure, unspecified heart failure type I50.9 ; Coronary artery disease involving [place] heart without angina pectoris, unspecified vessel or lesion type I25.10 ; Prostate cancer screening Z12.5 ; Encounter for immunization Z23 ; Uncontrolled type 2 diabetes mellitus with hyperglycemia E11.65 ; 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 ; Type 2 diabetes mellitus with diabetic neuropathy, unspecified whether buttermaker insulin use E11.40 and BMI 31.0-31.9,adult Z68.31 [facility] [address] [place], [place] [id number] 06/19/2024 Darwin [place] Neuropathy G62.9 [facility] [address] [place], [place] [id number] 12/22/2024 Melita Crowdy [facility] [address] [place], [place] [id number] 01/18/2025 Darwin [place] [facility] [address] [place], [place] [id number] 01/25/2025 Darwin [place] [facility] [address] [place], [place] [id number] 04/28/2025 Melita Crowdy [facility] [address] [place], [place] [id number] 04/29/2025 Darwin [place] [facility] [address] [place], [place] [id number] 05/03/2025 Darwin [place] Encounter for screen ing for lung cancer Z12.2 [facility] [address] [place], [place] [id number] 05/14/2025 Darwin [place] Assessments Encounter Date Diagnosis (ICD Code) Assessment [...] E78.2) 01/15/2025 Mixed hyperlipidemia (ICD-10 - E78.2) 01/15/2025 Stage 3a chronic kidney disease (ICD-10 - N18.31) 04/27/2025 Stage 3a chronic kidney disease (ICD-10 - N18.31) 04/27/2025 Neuropathy (ICD-10 - G62.9) 01/15/2025 Neuropathy (ICD-10 - G62.9) 01/15/2025 Chronic congestive heart failure, unspecified heart failure type (ICD-10 - I50.9) 04/27/2025 Chronic congestive heart failure, unspecified heart failure type (ICD-10 - I50.9) 04/27/2025 Coronary artery disease involving [place] heart without angina pectoris, unspecified vessel or [...] diabetes mellitus with diabetic neuropathy, unspecified whether longterm insulin use (ICD-10 - E11.40) 04/27/2025 BMI 31.0-31.9,adult (ICD-10 - Z68.31) Plan Of Treatment Pending Test Test Name Order Date Cologuard 01/15/2025 Cologuard 10/23/2023 Next Appt Details Provider Name:Darwin smith, 10/26/2025 09:30:00 AM, [address], [address], [place], [id number], Insurance Providers Payer Name Payer Address Payer Phone Subscriber Number Group Number Insured Name Patient Relationship to Insured Coverage Start Date Coverage End Date [employer] (MEDICARE) [address] [address] [place] [phone] [id number] Herminia Freeman Self - patient is the insured MEDICARE PART B [address] [address] [place] [id number] Herminia Freeman Self - patient is the insured Medical (General) History Medical History History ICD Code Diabetes Hyperlipidemia Renal Failure Anxiety Neuropathy Surgical History Surgery Date(Month/Year) blood clot on brain as a child
[2025-06-03 09:29] LABS: Chloride 102 mmol/L (98-107); Potassium 5.0 mmoL/L (3.5-5.1); Sodium 135 mmol/L (136-145)
[2025-06-03 09:32] LABS: Anion Gap 13.0 mEq/L (5-15); Blood Urea Nitrogen 23 mg/dl (9-20); Calcium 8.9 mg/dl (8.4-10.2); Carbon Dioxide 25 mmol/L (22.0-30.0); Creatinine,Serum 1.20 mg/dl (0.66-1.25); Estimated Glomerular Filt Rate 60 ml/min (>60); GFR (African American) 73 ML/MIN (>60); Glucose 223 mg/dl (74-100)
== END 2025-06-03 23:59 | disposition home or self-care (01) ==
LOC: LAB 08:23
PROVIDERS: PCP Family Medicine; Visit Provider Student in an Organized Health Care Education/Training Program
DX: E11.9 Type 2 diabetes mellitus without complications (principal)
CPT/HCPCS: 36415; 80048; 84681

== ENCOUNTER 2025-06-09 09:35 | Outpatient (CLI) | payer MEDICARE, SELFPAY ==
[2025-06-09 09:59] LABS: Hematocrit 41.6 % (42.0-52.0); Hemoglobin 13.3 g/dL (14.1-18.0); Immature Granulocytes % 0.4 %; Mean Corpuscular HGB Conc 32.0 g/dL (31.8-35.4); Mean Corpuscular Hemoglobin 29.0 pg (27.0-31.2); Mean Corpuscular Volume 90.8 fl (80-94); Nucleated Red Blood Cells % 0 %; Platelet Count 309 K/mm3 (142-424); Red Blood Count 4.58 M/mm3 (4.60-6.20); Red Cell Distribution Width-SD 46.6 fL; White Blood Count 8.4 K/mm3 (4.8-10.8)
--- OUTSIDE RECORDS SUMMARY | 2025-06-09 10:02 | XMS_ITS | Clinical Summary ---
Author Organization [facility] Address [address] [id number] Care Team Providers Care Auto Claim Representative Name Role Phone Darwin Martinez MD Primary Care Provider [phone] Allergies No known active allergies Medications metFORMIN [...] 2 - PCV20 or PCV21) 05/16/2022 05/16/2021 [id number] Vaccine (3 - season) 2025 04/24/2021, 03/27/2021 [...] Adults <6.0% Children and Adolescents <7.5% Source: [place] [employer]. Standards of medical care in diabetes,2017. Diabetes Care.2017:40 (suppl 1):S1-S135. HbA1c assay performed by an ion-exchange chromatography method that is certified traceable to the DCCT. us Jessica Hurley CLAY PIGEON LOADER, DNP LAB BLOOD ORDERABLES Fin al Result [facility] [address] [place] [address] from Last 3 Months or Most Recently Relevant to Health Maintenance Insurance ANTHEM Advance Directives * Full Code (Latest Code Status on File) Date Activated Date Inactivated Comments 12/18/2021 11:11 AM 12/20/2021 1:04 PM Question Answer Comments Patient has decision-making capacity? Yes Care Teams Auto Claim Representative Relationship Specialty Start Date End Date Darwin Martinez MD [address] [facility] [address], [place] [address] PCP - General 12/23/20
[2025-06-09 10:32] LABS: Alanine Aminotransferase 16 U/L (12-78); Albumin Level 3.0 g/dl (3.5-5.0); Alkaline Phosphatase 67 U/L (38-126); Anion Gap 11.0 mEq/L (5-15); Aspartate Amino Transferase 22 U/L (17-59); Bilirubin,Direct 0.3 mg/dl (0.0-0.4); Bilirubin,Indirect 0.1 mg/dL (0.0-0.9); Bilirubin,Total 0.4 mg/dl (0.2-1.3); Bilirubin,Unconjugated 0.1 mg/dL (0.0-1.1); Blood Urea Nitrogen 32 mg/dl (9-20); Calcium 9.6 mg/dl (8.4-10.2); Carbon Dioxide 25 mmol/L (22.0-30.0); Chloride 104 mmol/L (98-107); Cholesterol 91 mg/dl (140-200); Creatinine,Serum 1.30 mg/dl (0.66-1.25); Estimated Glomerular Filt Rate 55 ml/min (>60); GFR (African American) 66 ML/MIN (>60); Glucose 236 mg/dl (74-100); HDL Cholesterol 29 mg/dl (40-60); Magnesium 1.4 mg/dl (1.6-2.3); Potassium 5.0 mmoL/L (3.5-5.1); Sodium 135 mmol/L (136-145); Total Protein,Serum 6.7 g/dl (6.3-8.2); Triglycerides 142 mg/dl (30-150)
[2025-06-09 10:49] LABS: Free T4 (Free Thyroxine) 1.13 ng/dl (0.78-2.19)
[2025-06-09 11:02] LABS: Thyroid Stimulating Hormone 3.60 uIU/mL (0.465-4.68)
== END 2025-06-09 23:59 | disposition home or self-care (01) ==
LOC: LAB 09:35
PROVIDERS: PCP Family Medicine; Visit Provider Nurse Practitioner Family
DX: I25.10 Atherosclerotic heart disease of native coronary artery without angina pectoris (principal); I10 Essential (primary) hypertension; E78.5 Hyperlipidemia, unspecified
CPT/HCPCS: 36415; 80048; 80061; 80076; 83735; 84439; 84443; 85025

== ENCOUNTER 2025-06-29 07:53 | Outpatient (CLI) | payer MEDICARE, SELFPAY ==
--- NOTE | 2025-06-29 | CA_ITS ---
APPROVED REPORT Exam: Pharmacologic Technologist: Helena Abdullahi Stress Nurse: Irais PORRAS, RN Ht: 5 ft 9 in Wt: 226 lbs BSA: 2.18 m2 HR: 79 bpm BP: 132/82 mmHg Indications: Angina Pectoris, Coronary Artery Disease, Dyspnea Stress Test Details Test: Lexiscan HR Resting HR: 79 bpm Max Heart Rate (APMHR): 151.105953 bpm Max HR Achieved: 96 bpm Target HR (85% APMHR): 128.982528 bpm % of APMHR: 63.58 Recovery HR: 82 bpm BP Resting BP: 132.0/82.0 mmHg Max BP: 131.0/76.0 mmHg Recovery BP: 124.0/69.0 mmHg ECG Stress ECG Conclusion Lungs clear to auscultation prior to start of test. Symptoms: Dizziness Arrhythmias/Ectopy: PVC/Ventricular couplets ST-T Changes: Less than 0.[address] segment changes. Conclusion: Non-diagnostic ECG/Lexiscan. Electronically signed by : Lela Edmond MD 06/29/2025 12:05:08
--- NOTE | 2025-06-29 08:00 | NM_ITS ---
APPROVED REPORT Exam: Nuclear Stress Test Indication: HTN, DM, High cholesterol, CAD Patient Location: Outpatient Stress Tech: Helena Abdullahi NM Tech:Jade Fontenot, ARRT, RT (R)(N) Ht: 5 ft 9 in Wt: 228 lbs HR: 77 bpm BP: 132/82 mmHg BSA: 2.18 m2 TID: 1.13 BMI: 33.6 History: HTN, DM, High cholesterol, CAD Procedure: Patient received 0.4 mg of intravenous Lexiscan, resting heart rate 77 bpm, resting blood pressure 132/82 mmHg, with Lexiscan maximum heart rate achieved was 96 bpm which is % of the maximum predicted heart rate and blood pressure was 131/76 mmHg. With Lexiscan, patient denied any complaint of chest pain. Cardiac Stress and Resting SPECT Images: Cardiac Stress and Resting SPECT images were obtained using technetium 99m Myoview 32.8 mCi stress and 10.46 mCi at rest. Resting and stress imaging in supine positions demonstrate a large sized, moderate, predominantly fixed perfusion defect in the inferior, lateral, and inferolateral LV dailey. There is a small region of reversibility towards the basal lateral LV wall. Gated imaging demonstrates moderate reduction in global LV systolic function. LVEF is calculated at 36%. Conclusion: Large sized, moderate, predominantly fixed perfusion defect in the inferior, lateral, and inferolateral LV dailey. There is a small region of reversibility towards the basal lateral LV wall. Findings are suggestive of partial reversible ischemia. Gated imaging demonstrates moderate reduction in global LV systolic function. LVEF is calculated at 36%. Electronically signed by : Lela Edmond MD 06/29/2025 12:04:45
[2025-06-29 08:45] VITALS: BP 132/82; PULSE 79; RESP 16
[2025-06-29] MEDS: SODIUM CHLORIDE 0.9% 10ML SYR (RAD ONLY) 10 ML IV ×2 (08:56)
[2025-06-29] MEDS: ISOTOPE MYOVIEW (PER STUDY) 1 DOSE IV (08:56)
--- NOTE | 2025-06-29 10:30 | CA_ITS ---
APPROVED REPORT EXAM: Comprehensive 2D, Doppler, and color-flow Echocardiogram Registered Art Therapist: Marybel Trevino CRT Ht: 5 ft 9 in Wt: 226lbs BSA: 2.18 BP: 163/81 mmHg Indications: Congestive Heart Failure, Shortness of Breath, Peripheral Edema, CAD, Hyperlipidemia, Cardiomyopathy, Hypertension/HDD ef 45% 11/05/22 2D Dimensions LA Volume 61.80 mL LA Volume Index 27.70 mL/m2 (M/F) 16-34 M-Mode Dimensions RVDd 3.13 cm (0.9-2.6) LA Diam 4.81 cm (1.9-4.0) LVDd 5.06 cm (3.5-5.7) LVDs 4.50 cm (3.5-5.7) IVSd 1.81 cm (0.6-1.1) PWd 1.04 cm (0.6-1.1) EF (Teich) 24.00% FS 11.10% EDV (Teich) 121.60 mL ESV (Teich) 92.40 mL LV Diastology E Decel Time 170 (160-240 msec) E/A Ratio 1.48 MED A' 9.40 cm/s LAT A' 8.10 cm/s Aortic Valve AO Peak GR. 5.10 mmHg Mitral Valve MV E Max Nabor. 84.0 (40-130 cm/s) MV A Velocity 57.0 (40-130 cm/s) E/A Ratio 1.48 MV PHT 50.0 ms Pulmonary Valve PV Peak Velocity 148.0 (50-150 cm/s) Tricuspid Valve TR P. Velocity 256.00 cm/s RAP Estimate 10.00 mmHg RVSP 36.30 mmHg Left Ventricle The left ventricle is normal size. Left ventricular systolic function is mildly reduced. There is increased left ventricular wall thickness. The septum is asynchronous. Grade 1 diastolic dysfunction is present. LVEF is 45%. Right Ventricle The right ventricle is normal size. The right ventricular systolic function is normal. Atria The left atrium is mildly dilated. The right atrium is mildly dilated. There is no color Doppler evidence of interatrial shunt. Aortic Valve The aortic valve is mildly thickened. There is no hemodynamically significant aortic valvular stenosis. Trace aortic regurgitation is present. Mitral Valve The mitral valve is normal in structure. No evidence of mitral valve stenosis. Mild mitral regurgitation is present. Tricuspid Valve The tricuspid valve leaflets are thin and pliable. Mild tricuspid regurgitation. RVSP is 30-35 mmHg. Pulmonic Valve The pulmonary valve is grossly normal in structure. Trace pulmonic valve regurgitation is present. Great Vessels The aortic root is normal in size. IVC is normal in size and collapses >50% with inspiration. Pericardium There is no pericardial effusion. Other Information Study Quality: Fair Conclusion Mildly reduced LV systolic function (LVEF 45%). Mild biatrial dilation. Mild MR, mild TR. Electronically signed by : Lela Edmond MD 06/30/2025 00:34:28
== END 2025-06-29 23:59 | disposition home or self-care (01) ==
LOC: RAD 07:54
PROVIDERS: PCP Family Medicine; Visit Provider Nurse Practitioner Family
DX: I08.1 Rheumatic disorders of both mitral and tricuspid valves (principal); I11.0 Hypertensive heart disease with heart failure; I50.9 Heart failure, unspecified; E78.5 Hyperlipidemia, unspecified; I42.9 Cardiomyopathy, unspecified; I25.119 Atherosclerotic heart disease of native coronary artery with unspecified angina pectoris
CPT/HCPCS: 78452; 93017; 93018; 93306; A9502; J2785

== ENCOUNTER 2025-07-06 07:40 | Day surgery (SDC) | payer MEDICARE, SELFPAY ==
[2025-07-06] VITALS (14 sets, daily range): BP systolic 111–138; BP diastolic 65–92; PULSE 63–87; RESP 18–20; TEMP 36.9; O2SAT 90–98; BMI 33.5
--- NOTE | 2025-07-06 07:02 | IR_ITS ---
APPROVED REPORT Patient Location: Outpatient Slitter And Rewinder: MARGARET Meraz RT (R) PROCEDURES Left heart catheterization Left ventriculogram Selective coronary angiogram Drug-eluting stent deployment to the ramus intermedius INDICATION Known coronary artery disease, Abnormal Myoview with lateral wall ischemia, Systolic congestive heart failure Informed consent was obtained prior to the procedure. COMPLICATIONS NONE Estimated Blood Loss: LESS THAN 10 ML TECHNIQUE One percent lidocaine used to anesthetize the right anterior aspect of the wrist. The right radial artery was accessed via the Seldinger technique. A 6 Barbadian sheath was placed in the right radial artery. 2.5 mg of Verapamil, 800 mcg of nitroglycerin, 1mg Lidocaine and 5000 U Heparin were given through the arterial sheath. The JL3 catheter was also used to perform left heart catheterization, left ventriculogram and selective coronary angiogram. At the end the diagnostic angiogram therapeutic heparin was administered given a therapeutic ACT and the guide catheter was placed in left main artery followed by Choice PT extra-support wire placed down the ramus intermedius. A 3 mm x 18 mm [place] frontier stent was deployed at 16 shae reducing the hemodynamically severe disease to 0%. SUE-3 flow was present before and after the procedure. At the end the procedure the apparatus was removed the sheath was removed good hemostasis was achieved using TR banding patient was transferred to the postop boarding in stable condition ANGIOGRAPHIC RESULTS The left main artery Normal The left anterior descending artery Has a stent in the proximal segment which extends into the midportion. Proximal the stent is widely patent while the distal portion of the stent in the mid LAD has 20 to 30% concentric in-stent restenosis with excellent distal transitioning The circumflex artery Is large and dominant gives rise to a large ramus intermedius which has a stent in the proximal segment. Distal to the stent there is a 50% eccentric stenosis. Immediately distal to the ramus intermedius the circumflex artery has a 30 to 40% stenosis with 20% luminal regularities in the midportion and distal 30% stenosis The right coronary artery Vestigial normal The JACOBS ventriculogram reveals Dilated globally hypokinetic ejection fraction 30% The left ventricular end-diastolic pressure 20 mmHg IMPRESSION Hemodynamically severe disease in the ramus intermedius giving lateral wall ischemia on the Myoview Successful stenting of the ramus intermedius hemodynamically severe disease reduced to 0% with 1 drug-eluting stent Low ejection fraction with left ventricular dilatation and mildly elevated LVEDP PLAN 1. Dual antiplatelet therapy 2. GDMT for systolic heart failure 3. Evaluate with echocardiogram in 3 months to determine if patient is a candidate for AICD placement for primary prevention 4. LDL less than 55 to be achieved with high intensity statin 5. Avoidance of tobacco products 6. Risk factor modification Electronically signed by : Venkata Monroy MD 07/06/2025 10:04:58
[2025-07-06 08:10] LABS: Hematocrit 41.4 % (42.0-52.0); Hemoglobin 13.4 g/dL (14.1-18.0); Immature Granulocytes % 0.3 %; Mean Corpuscular HGB Conc 32.4 g/dL (31.8-35.4); Mean Corpuscular Hemoglobin 28.9 pg (27.0-31.2); Mean Corpuscular Volume 89.2 fl (80-94); Nucleated Red Blood Cells % 0 %; Platelet Count 55 K/mm3 (142-424); Red Blood Count 4.64 M/mm3 (4.60-6.20); Red Cell Distribution Width-SD 45.9 fL; White Blood Count 9.1 K/mm3 (4.8-10.8)
[2025-07-06 08:20] LABS: Anion Gap 10.2 mEq/L (5-15); Blood Urea Nitrogen 24 mg/dl (9-20); Calcium 9.5 mg/dl (8.4-10.2); Carbon Dioxide 25 mmol/L (22.0-30.0); Chloride 106 mmol/L (98-107); Creatinine Clearance Estimated 73 mL/min (50-200); Creatinine,Serum 1.40 mg/dl (0.66-1.25); Estimated Glomerular Filt Rate 50 ml/min (>60); GFR (African American) 61 ML/MIN (>60); Glucose 128 mg/dl (74-100); Potassium 4.2 mmoL/L (3.5-5.1); Sodium 137 mmol/L (136-145)
[2025-07-06] MEDS: VERAPAMIL 2.5MG/ML 2ML VIAL 2.5 MG IV (09:00)
[2025-07-06] MEDS: LIDOCAINE 1% 10ML MDV 10 ML IJ (09:00)
[2025-07-06] MEDS: NITROGLYCERIN 800MCG/8ML SYR (CATH LAB) 800 MCG IA (09:00)
[2025-07-06] MEDS: HEPARIN 1,000 UNITS/ML 10ML VIAL (CATH LAB) 5000 UNIT IV (09:00)
[2025-07-06] MEDS: HEPARIN 1,000 UNITS/500ML NS (CATH LAB) 3000 UNIT IV (09:00)
[2025-07-06] MEDS: 0.9 % SODIUM CHLORIDE 500 ML 25 ML IV (09:01)
[2025-07-06] MEDS: MIDAZOLAM HCL 1MG/ML 5ML VIAL 1 MG IV (09:39)
[2025-07-06] MEDS: FENTANYL 100MCG/2ML VIAL 50 MCG IV (09:39)
[2025-07-06] MEDS: PRASUGREL 10MG TAB 60 MG PO (10:03)
[2025-07-06] MEDS: IOPAMIDOL-370 (76%);100ML BOTTLE 60 ML IV (10:43)
[2025-07-06 15:06] LABS: CATHL Activated Clotting Time > 400 SEC (74-125)
== END 2025-07-06 13:53 | disposition home or self-care (01) ==
PROVIDERS: PCP Family Medicine; Visit Provider Internal Medicine
PROC: 4A023N7 Measurement of Cardiac Sampling and Pressure, Left Heart, Percutaneous Approach (ICD-10-PCS; CPT 93452; principal; 2025-07-06 10:45)
DX: I25.118 Atherosclerotic heart disease of native coronary artery with other forms of angina pectoris (principal); R06.09 Other forms of dyspnea; R94.39 Abnormal result of other cardiovascular function study; I50.20 Unspecified systolic (congestive) heart failure; I11.0 Hypertensive heart disease with heart failure; R94.31 Abnormal electrocardiogram [ECG] [EKG]; E11.9 Type 2 diabetes mellitus without complications; E78.2 Mixed hyperlipidemia; I27.20 Pulmonary hypertension, unspecified; I51.89 Other ill-defined heart diseases; I42.9 Cardiomyopathy, unspecified; Z87.891 Personal history of nicotine dependence; Z79.85 Long-term (current) use of injectable non-insulin antidiabetic drugs; Z79.84 Long term (current) use of oral hypoglycemic drugs; Z79.82 Long term (current) use of aspirin; Z79.02 Long term (current) use of antithrombotics/antiplatelets; Z79.4 Long term (current) use of insulin; Z79.899 Other long term (current) drug therapy; Z95.5 Presence of coronary angioplasty implant and graft
CPT/HCPCS: 80048; 85025; 85347; 92928; 93458; 99152; 99153; C1760; C1769; C1874; C1887; C9600; J1200; J1644; J2003; J3010; J7040; Q9967

== ENCOUNTER 2025-07-19 07:51 | Outpatient (CLI) | payer MEDICARE, SELFPAY ==
--- OUTSIDE RECORDS SUMMARY | 2024-04-23 04:15 | XMS_ITS ---
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 Role Phone Darwin Martinez Primary Care Provider Melita Lawrence Unavailable [phone] Allergies Allergen (clinical drug ingredient) Drug/Non Drug Allergy documented on EMR Reaction Allergy Type Onset Date Status lisinopril Lisinopril dry cough Drug Allergy Activ e Results Component Value Reference Range Notes CBC Venipuncture (in house) Reviewed date:05/06/2024 08:43:17 AM Interpretation: Performing Lab: Notes/Report: wbc 9.9 3.5 - 10 lymph 16.5 15 - 50 mid 5.0 2 - 15 gran 78.5 35 - 80 rbc 4.18 3.5 - 5.5 hgb 12.4 11.5 - 16.5 hct 37.2 35 - 55 mcv 89.0 75 - 100 mch 29.6 25 - 35 mchc 33.3 31 - 38 platlet 366 100 - 400 Glycohemoglobin A1c (in hous e) Reviewed date:05/06/2024 08:43:17 AM Interpretation:11.4 Performing Lab: Notes/Report: 11.4 glycohemoglobin 11.4% 5 - 6.5 % P-Comprehensive Metabolic Pa dora (CMP) Reviewed date:05/06/2024 08:43:17 AM Interpretation:K+ 5.5, gluc 215, Cr 1.44, gfr 53 Performing Lab: Notes/Report: Test performed by [facility] [address] [place] [address] , [address], [place] [address] Radhames Storm MD, Auto Clutch Rebuilder CLIA: [id number] Sodium 137 135-145 mmol/L Potassium 5.5 3.5-5.3 mmol/L Chloride 104 97-108 mmol/L CO2 22 22-32 mmol/L Glucose 215 65-99 mg/dL BUN 23 8-23 mg/dL Creatinine 1.44 0.70-1.30 mg/dL Calcium 9.3 8.6-10.4 mg/dL eGFR by Creatinine 53 >59 mL/min/1.73m2 Protein 6.4 6.0-8.3 g/dL Albumin 3.8 3.5-5.3 g/dL Alkaline Phosphatase 70 40-129 IU/L ALT (SGPT) 15 <5-55 IU/L AST (SGOT) 19 <5-46 IU/L Bilirubin, Total 0.5 <0.2-1.2 mg/dL A/G Ratio 1.5 1.1-2.5 P-Lipid Panel Reviewed date:05/06/2024 08:43:17 AM Interpretation:hdl 26 Performing Lab: Notes/Report: Test performed by [facility] [address] [place] [address] , [address], [place] [address] Radhames Storm MD, Auto Clutch Rebuilder CLIA: [id number] Cholesterol 96 <200 mg/dL Triglycerides 94 <150 mg/dL HDL Cholesterol 26 >39 mg/dL Cholesterol / HDL Ratio 3.69 0.00-4.99 Ratio Non-HDL Cholesterol 70 <130 mg/dL LDL Cholesterol (Calculation) 51 <130 mg/dL LDL Cholesterol Levels* Less than 100 mg/dL Optimal 100 to 129 mg/dL Near Optimal/ Above Optimal 130 to 159 mg/dL Borderline High 160 to 189 mg/dL High 190 mg/dL and above Very High * Categories as recommended by the 2004 ATPIII guidelines LDL/HDL Ratio 2.0 <3.3 Ratio LDL Cholesterol Patient History Test Date: 04/25/2023 LDL Results: 43 Units: mg/dL % Change: -34% Test Date: 10/23/2023 LDL Results: 53 Units: mg/dL % Change: +23% Test Date: 04/23/2024 LDL Results: 51 Units: mg/dL % Change: -3% P-PSA Reviewed date:05/06/2024 08:43:17 AM Interpretation:Normal Performing Lab: Notes/Report: Test performed by [facility] [address] [place] [address] , [address], [place] [address] Radhames Storm MD, Auto Clutch Rebuilder CLIA: [id number] PSA 1.99 <4.00 ng/mL Please note this is an ultrasensitive PSA assay with a lower limit of detection of 0.014 ng/mL. This test is performed by the [employer] ECLIA methodology. Values obtained with different assay methods or kits cannot be directly compared. P-TSH reflex to FT4 Reviewed date:05/06/2024 08:43:17 AM Interpretation:Normal Performing Lab: Notes/Report: Test performed by [facility] [facility] , [address], [place] [address] Radhames Storm MD, Auto Clutch Rebuilder CLIA: [id number] TSH reflex to FT4 2.56 0.43-5.25 mU/L REASON FOR VISIT 6 months, Needs labs with PSA, colon cancer screening, low dose chest CT, diabetic eye exam, & shingles vaccine Medications Medication SIG (Take, Route, Frequency, Duration) Notes Start Date End Date Status amLODIPine Besylate 5 MG 1 tab(s) orally once a day; Duration: 90 days Active Carvedilol 12.5 MG 1 tab(s) orally 2 times a day; Duration: 90 days Active Furosemide 40 MG 1 tab(s) orally once a day; Duration: 90 days Active Fenofibrate 160 MG 1 tab(s) with a meal orally once a day; Duration: 90 days Active Atorvastatin Calcium 10 MG take 1 tablet by mouth once daily Orally once daily; Duration: 90 days Active BD Pen Needle Short U/F 31 GUAGE X 5/16 INCH 1 needle ONCE A DAY E11.9 *Please review and pick correct strength-formulati on from doggyloot options. If intended option is not shown, discontinue and re-order from Quick Search* Active Toujeo SoloStar 300 UNIT/ML 30 units subcutaneously once a day Active metFORMIN HCl 500 MG take 2 tablets by mouth twice daily Orally Two times a day; Duration: 90 days Active Rybelsus 7 MG 1 tab(s) orally once a day Active amLODIPine Besylate 5 MG 1 tab(s) orally once a day; Duration: 90 days Active Accu-Chek Gracie Plus 1 TEST STRIP(S) FINGERSTICK TEST 3 TIMES A DAY OR DIRECTED; Duration: 30 DAYS *Please review and pick correct strength-formulati on from doggyloot options. If intended option is not shown, discontinue and re-order from Quick Search* 01/07/2020 Active Carvedilol 12.5 MG 1 tab(s) orally 2 times a day; Duration: 90 days Active BD Pen Needle Short U/F DIRECTED SUBCUTANEOUS TWO TIMES A DAY *Please review and pick correct strength-formulati on from doggyloot options. If intended option is not shown, discontinue and re-order from Quick Search* 03/08/2015 Active Brilinta 90 MG Take 1 tablet by mouth twice daily; Duration: 90 Active Gabapentin 100 MG 1 cap orally 2 times a day; Duration: 30 day(s) 12/02/2023 Active Lancets 1 LANCET FINGERSTICK TEST 3 TIMES A DAY OR DIRECTED; Duration: 30 DAYS *Please review and pick correct strength-formulati on from [employer] options. If intended option is not shown, discontinue and re-order from Quick Search* 01/07/2020 Active GLUCOMETER 1 METER TEST 3 TIMES A DAY OR DIRECTED; Duration: 30 DAYS *Please review for potential replacement for e-prescription and drug interaction check* 01/07/2020 Active Aspirin 81 MG 1 tab(s) orally once a day; Duration: 30 day(s) Active Vistaril 25 MG 1 cap orally at bed time; Duration: 90 days Active Vital Signs Weight 224.6 lbs 04/23/2024 Blood pressure systolic 130 mm Hg 04/23/20 24 Blood pressure diastolic 80 mm Hg 024 Heart Rate 81 /min 04/23/2024 Height 70 in 04/23/2024 BMI 32.22 kg/m2 04/23/2024 Encounters Encounter Location Date Provider Diagnosis [facility] [facility] [address] [phone] 04/23/2024 Melita Lawrence Type 2 diabetes rema itus without complications E11.9 ; Essential hypertension I10 ; Neuropathy G62.9 ; Coronary artery disease involving [place] heart without angina pectoris, unspecified vessel or lesion type I25.10 ; Mixed hyperlipidemia E78.2 ; Other insomnia G47.09 and Screening PSA (prostate specific antigen) Z12.5 Assessments Encounter Date Diagnosis (ICD Code) Assessment Notes Treatment Notes Treatment Clinical Notes Section Notes 04/23/2024 Type 2 diabetes mellitus without complications (ICD-10 - E11.9) 04/23/2024 Essential hypertension (ICD-10 - I10) 04/23/2024 Neuropathy (ICD-10 - G62.9) 04/23/2024 Coronary artery disease involving [place] heart without angina pectoris, unspecified vessel or lesion type (ICD-10 - I25.10) Has f/u scheduled with cardiology. 04/23/2024 Mixed hyperlipidemia (ICD-10 - E78.2) 04/23/2024 Other insomnia (ICD-10 - G47.09) 04/23/2024 Screening PSA (prostate specific antigen) (ICD-10 - Z12.5) 04/23/2024 Other He states he sent his cologuard back a while ago. Will check on results. He is seeing an eye doctor in May. Plan Of Treatment Medication Medication Name Sig Start Date Stop Date Notes amLODIPine Besylate 5 MG 1 tab(s) orally once a day; Duration: 90 days Carvedilol 12.5 MG 1 tab(s) orally 2 ti mes a day; Duration: 90 days Furosemide 40 MG 1 tab(s) orally once a day; Duration: 90 days Fenofibrate 160 MG 1 tab(s) with a meal orally once a day; Duration: 90 days Atorvastatin Calcium 10 MG take 1 tablet by mouth once daily Orally once daily; Duration: 90 days BD Pen Needle Short U/F 31 GUAGE X 5/16 INCH 1 needle ONCE A DAY E11.9 *Margareth gilmore review and pick correct strength-formulation from doggyloot options. If intended option is not shown, discontinue and re-order from Quick Search* Toujeo SoloStar 300 UNIT/ML 30 units subcutaneously once a day metFORMIN HCl 500 MG take 2 tablets by m outh twice daily Orally Two times a day; Duration: 90 days Rybelsus 7 MG 1 tab(s) orally once a day Vistaril 25 MG 1 cap orally at bed time; Duration: 90 days Treatment Notes Assessment Notes Coronary artery disease invo lving [place] heart without angina pectoris, unspecified vessel or lesion type Has f/u scheduled with cardiology. Other He states he sent hi s cologuard back a while ago. Will check on results. He is seeing an eye doctor in May. Next Appt Details Follow Up: via phone to repo rt test results, Reason: Provider Name:Darwin smith, 10/26/2025 09:30:00 AM, [address], [address], [place], [place], [id number], Progress Notes * Tamera FREEMANOB: 6 (70 yo M)Acc No.[id number]:04/23/2024 Progress Notes Patient: Herminia MONTOYA Provider: CURT Malin :1955 A ge:69 Y S ex:Male Date:04/23/2024 Address:[facility] [place], [id number] Pcp:Darwin Martinez Subjective: * Chief Complaints: * 1 . 6 months. 2. Needs labs with PSA, colon cancer screening, low dose chest CT, diabetic eye exam, & shingles vaccine. * HPI: C ardiology: Pt is here today for a 6 month check up. Pt sts he is fasting. Pt sts he has only had black coffee this morning . * ROS: A LLERGY: no C ough. n o R unny nose. G ASTROENTEROLOGY: no V omiting. n o D iarrhea. U ROLOGY: no D ifficulty urinating. n o B lood in urine. * Medical History: D iabetes, Hyperlipidemia, Renal failure, Anxiety, Neuropathy. 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 * Family History: F ather: 65 yrs, cancer. M other: 75 yrs. 5 brother(s) , 6 sister(s) . 1 son(s) , 3 daughter(s) . . * Social History: C URRENT TOBACCO USE: No S moking Status: Patient does NOT smoke, Former Smoker: Yes, Quit smokin, Smoking pack year history: 2. C affeine: yes, frequency:coffee, pop and tea. Home smoke detector use: yes. Marital Status: . Alcohol: No. Smoked for 3 years and quit. * Medications: T aking Aspirin 81 MG Tablet Delayed Release 1 tab(s) orally once a day , Taking GLUCOMETER 1 METER TEST 3 TIMES A DAY OR DIRECTED , Notes to Pharmacist: *Please review for potential replacement for e-prescription and drug interaction check*, Taking Lancets 1 LANCET FINGERSTICK TEST 3 TIMES A DAY OR DIRECTED , Notes to Pharmacist: *Please review and pick correct strength-formulation from [employer]is[employer] options. If intended option is not shown, discontinue and re-order from Quick Search*, Taking Accu-Chek Gracie Plus 1 TEST STRIP(S) FINGERSTICK TEST 3 TIMES A DAY OR DIRECTED , Notes to Pharmacist: *Please review and pick correct strength-formulation from [employer] options. If intended option is not shown, discontinue and re-order from Quick Search*, Taking BD Pen Needle Short U/F 32G X 4MM DIRECTED SUBCUTANEOUS TWO TIMES A DAY , Notes to Pharmacist: *Please review and pick correct strength-formulation from [employer] options. If intended option is not shown, discontinue and re-order from Quick Search*, Taking Carvedilol 12.5 MG Tablet 1 tab(s) orally 2 times a day , Taking Vistaril 25 MG Capsule 1 cap orally at bed time , Taking BD Pen Needle Short U/F 31 GUAGE X 5/16 INCH 1 needle ONCE A DAY , Notes to Pharmacist: E11.9 *Please review and pick correct strength-formulation from [employer] options. If intended option is not shown, discontinue and re-order from Quick Search*, Taking Rybelsus 7 MG Tablet 1 tab(s) orally once a day , Taking metFORMIN HCl 500 MG Tablet take 2 tablets by mouth twice daily Orally Two times a day , Taking Carvedilol 12.5 MG Tablet 1 tab(s) orally 2 times a day , Taking Furosemide 40 MG Tablet 1 tab(s) orally once a day , Taking Atorvastatin Calcium 10 MG Tablet take 1 tablet by mouth once daily Orally once daily , Taking Fenofibrate 160 MG Tablet 1 tab(s) with a meal orally once a day , Taking Toujeo SoloStar 300 UNIT/ML Solution Pen-injector 33 units subcutaneously once a day , Taking Brilinta 90 MG Tablet Take 1 tablet by mouth twice daily , Taking Gabapentin 100 MG Capsule 1 cap orally 2 times a day , Taking amLODIPine Besylate 5 MG Tablet 1 tab(s) orally once a day , Medication List reviewed and reconciled with the patient * Allergies: L isinopril: dry cough. Objective: * Vitals: W t:224.6, Temp:97.4, BP:130/80, HR:81, Nurse:ARIANNA, Ht: 70, BMI:32.22. * Examination: G eneral Examination: General Appearance: N AD. H EENT: u nremarkable.?Oral cavity: n o lesions, mucosa moist and WNL, no erythema. N catherine: s upple, no lymphadenopathy. C hest: n ormal shape and expansion. H eart: R SR. L ungs: c lear to auscultation. A bdomen: bowel sounds present, soft and nontender, no organomegaly or masses, no guarding or rigidity. N eurologic Exam: I ntact, gait normal. S kin: n ormal, no rash. P eripheral pulses: n ormal (2+) bilaterally. E xtremities: trace leg edema bilaterally. Assessment: * Assessment: 1. T ype 2 diabetes mellitus without complications - E11.9 (Primary) 2 . E ssential hypertension - I10 3 . N europathy - G62.9 4 . C oronary artery disease involving [place] heart without angina pectoris, unspecified vessel or lesion type - I25.10 5 . M ixed hyperlipidemia - E78.2 6 . O ther insomnia - G47.09 7 . S creening PSA (prostate specific antigen) - Z12.5 Plan: * Treatment: Value Reference Range A /G Ratio 1.5 1.1-2.5 - * A lbumin 3.8 3.5-5.3 - g/dL * A lkaline Phosphatase 70 40-129 - IU/L * A LT (SGPT) 15 <5-55 - IU/L * A ST (SGOT) 19 <5-46 - IU/L * B ilirubin, Total 0.5 <0.2-1.2 - mg/dL * B UN 23 8-23 - mg/dL * C alcium 9.3 8.6-10.4 - mg/dL * C hloride 104 97-108 - mmol/L * C O2 22 22-32 - mmol/L * C reatinine 1.44 H 0.70-1.30 - mg/dL * G lucose 215 H 65-99 - mg/dL * P otassium 5.5 H 3.5-5.3 - mmol/L * S odium 137 135-145 - mmol/L * P rotein 6.4 6.0-8.3 - g/dL * e GFR by Creatinine 53 L >59 - mL/min/1.73m2 * Melita Lawrence 05/06/2024 8: 42:44 AM > see TE ?LAB: P-TSH reflex to FT4 (Collection Date & Time - 04/23/2024 09:00 AM)? Normal* Value Reference Range T SH reflex to FT4 2.56 0.43-5.25 - mU/L * NateJa dempseyforrest Thayer 05/06/2024 8: 42:44 AM > see TE ?LAB: Glycohemoglobin A1c (in house) (Collection Date & Time - 04/23/2024)? 11.4* Value Reference Range g lycohemoglobin 11.4% 5 - 6.5 % * Juju Gooden 04/23/2024 10:16:4 4 AM > Ja Lawrenceforrest Thayer 05/06/2024 8:42:44 AM > see TE 2.?Essential hypertension? Refill Carvedilol Tablet, 12.5 MG, 1 tab(s), orally, 2 times a day, 90 days, 180 Tablet, Refills 1; Refill amLODIPine Besylate Tablet, 5 MG, 1 tab(s), orally, once a day, 90 days, 90 Tablet, Refills 1.?LAB: CBC Venipuncture (in house) (Collection Date & Time - 04/23/2024)* Value Reference Range w bc 9.9 3.5 - 10 * l ymph 16.5 15 - 50 * m id 5.0 2 - 15 * g ran 78.5 35 - 80 * r bc 4.18 3.5 - 5.5 * h gb 12.4 11.5 - 16.5 * h ct 37.2 35 - 55 * m cv 89.0 75 - 100 * m ch 29.6 25 - 35 * m chc 33.3 31 - 38 * p latlet 366 100 - 400 * GiacomoJuju 04/23/2024 10:09:4 3 AM > Melita Lawrence Jeovany 05/06/2024 8:42:44 AM > see TE 3.?Coronary artery disease involving [place] heart without angina pectoris, unspecified vessel or lesion type? Refill Furosemide Tablet, 40 MG, 1 tab(s), orally, once a day, 90 days, 90 Tablet, Refills 1.? Notes: Has f/u scheduled with cardiology.??4.?Mixed hyperlipidemia? Refill Atorvastatin Calcium Tablet, 10 MG, take 1 tablet by mouth once daily, Orally, once daily, 90 days, 90, Refills 1;?Refill Fenofibrate Tablet, 160 MG, 1 tab(s) with a meal, orally, once a day, 90 days, 90, Refills 1.?LAB: P-Lipid Panel (Collection Date & Time - 04/23/2024 09:00 AM)?hdl 26* Value Reference Range C holesterol / HDL Ratio 3.69 0.00-4.99 - Ratio * C holesterol 96 <200 - mg/dL * H DL Cholesterol 26 L >39 - mg/dL * L DL Cholesterol (Calculation) 51 <130 - mg/d L * L DL/HDL Ratio 2.0 <3.3 - Ratio * N on-HDL Cholesterol 70 <130 - mg/dL * T riglycerides 94 <150 - mg/dL * HowardMelita Thayer 05/06/2024 8: 42:44 AM > see TE 5.?Other insomnia? Refill Vistaril Capsule, 25 MG, 1 cap, orally, at bed time, 90 days, 90, Refills 1.??6.?Screening PSA (prostate specific antigen)?LAB: P-PSA (Collection Date & Time - 04/23/2024 09:00 AM)?Normal* Value Reference Range P SA 1.99 <4.00 - ng/mL * HowardMelita Thayer 05/06/2024 8: 42:44 AM > see TE 7.?Others? Notes: He states he sent his cologuard back a while ago. Will check on results. He is seeing an eyedoctor in May.?? * Procedure Codes: 3 6416 CAPILLARY BLOOD DRAW, 46388 GLYCATED HEMOGLOBIN TEST, Modifiers: QW , 55001 CBC WITH AUTO DIFF, 48020 VENIPUNCT, ROUTINE* * Follow Up: v ia phone to report test results * Images: Billing Information: * Visit Code: 04354 Office Visit, Est Pt., Level 4. * Procedure Codes: 69997 CAPILLARY BLOOD DRAW. 09978 GLYCATED HEMOGLOBIN TEST. Modifiers: QW 49912 CBC WITH AUTO DIFF. 52920 VENIPUNCT, ROUTINE*. * Electronic signature of CURT Stokes on 07/19/2025 at 07:52 AM EST Sign off status: Pending * Provider: CURT Malin Date: 0 04/23/2024 Generated for Nina carranza/Yaron/Tegan on: 1 09/19/2024 07:52 AM EST History and Physical Notes * HPI (History of Present Illness) Category Sub-Category Detail Notes Category Not es Cardiology Pt is here toda y for a 6 month check up. Pt sts he is fasting. Pt sts he has only had black coffee this morning Examination Category Sub-Category Detail Notes Category Not es General Examination HEENT: unremarkable Heart: RSR Lungs: clear to auscultatio n Abdomen: bowel sounds present , soft and nontender, no organomegaly or masses, no guarding or rigidity Extremities: trace leg edema bila terally General Appearance: NAD Skin: normal, no rash Neurologic Exam: Intact, gait normal Neck: supple, no lymphaden opathy Oral cavity: no lesions, mucosa m oist and WNL, no erythema Peripheral pulses: normal (2+) bilatera lly Chest: normal shape and exp ansion
--- OUTSIDE RECORDS SUMMARY | 2024-10-22 04:00 | XMS_ITS ---
Author Organization [facility] Address [address] [facility] [address] [place] [phone] Care Team Providers Care Log Snaker Name Role Phone Darwin Martinez Primary Care Provider Melita Lawrence [phone] Allergies Allergen (clinical drug ingredient) Drug/Non Drug Allergy documented on EMR Reaction Allergy Type Onset Date Status lisinopril Lisinopril dry cough Drug Allergy Activ e REASON FOR VISIT 6 months, Needs labs, low dose chest CT, colon cancer screening, diabetic eye exam, & shingles vaccine Encounters Encounter Location Date Provider Diagnosis [facility] [address] [facility] [address] [place] [phone] 10/22/2024 Melita Lawrence Plan Of Treatment Next Appt Details Provider Name:Darwin Fonseca ry, 10/26/2025 09:30:00 AM, [address], [address], [facility] [place], [phone], Progress Notes * PETE AllieDOB: (70 yo M)Acc No.[id number]:10/22/2024 Progress Notes Patient: eHrminia MONTOYA Provider: CURT Malin :1955 A ge:69 Y S ex:Male Date:10/22/2024 Address:[address] [place], [place] [id number] Pcp:Darwin Martinez Subjective: * Chief Complaints: * 1 . 6 months. 2. Needs labs, low dose chest CT, colon cancer screening, diabetic eye exam, & shingles vaccine. * HPI: H PI: 69 year old male presents with c/o Patient is here today for?6 mo check-up. Pt states she is doing well and does not have any concerns. Pt is fasting today.? * ROS: D ERMATOLOGY: no R shaunna. n o H ayo. G ASTROENTEROLOGY: no N ausea. n o V omiting. U ROLOGY: no D ifficulty urinating. n o B lood in urine. * Medical History: D iabetes, Hyperlipidemia, Renal Failure, Anxiety, Neuropathy. 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 * Hospitalization/Major Diagno stic Procedure: D enies Past Hospitalization. * Family History: F ather: 65 yrs, [...] Smoked for 3 years and quit. * Allergies: L isinopril: dry cough. Objective: * Vitals: Assessment: Plan: * Treatment: * Images: Billing Information: * Visit Code: * Procedure Codes: * Electronic signature of CURT Stokes on 07/19/2025 at 07:53 AM EST Sign off status: Pending * Provider: CURT Malin Date: 0 10/22/2024 Generated for Nina carranza/Yaron/eTedmundosmitting on: 1 09/19/2024 07:53 AM EST History and Physical Notes * HPI (History of Present Illness) Category Sub-Category Detail Notes Category Not es HPI Patient is here today for 6 mo c heck-up. Pt states she is doing well and does not have any concerns. Pt is fasting today
--- OUTSIDE RECORDS SUMMARY | 2025-01-15 05:15 | XMS_ITS ---
Author Organization [facility] Address [address] [id number] Care Team Providers Care Collator Name Role Phone Darwin Martinez Primary Care Provider [phone] Melita Lawrence Unavailable [phone] Allergies Allergen (clinical drug ingredient) Drug/Non Drug Allergy documented on EMR Reaction Allergy Type Onset Date Status lisinopril Lisinopril dry cough Drug Allergy Activ e Results Component Value Reference Range Notes Glucose (In-House) Reviewed date:01/18/2025 01:29:05 PM Interpretation:243 Performing Lab: Notes/Report: 243 blood glucose 243 74 - 106 mg/dL CBC Venipuncture (in house) Reviewed date:01/18/2025 01:29:05 PM Interpretation:rbc 6.94, hgb 20.2, hct 63.3 Performing Lab: Notes/Report: rbc 6.94, hgb 20.2, hct 63.3 wbc 4.4 3.5 - 10 lymph 21.7 15 - 50 mid 6.1 2 - 15 gran 72.2 35 - 80 rbc 6.94 3.5 - 5.5 hgb 20.2 11.5 - 16.5 hct 63.3 35 - 55 mcv 91.2 75 - 100 mch 29.2 25 - 35 mchc 32.0 31 - 38 platlet 116 100 - 400 Glycohemoglobin A1c (in hous e) Reviewed date:01/18/2025 01:29:05 PM Interpretation:11.5% Performing Lab: Notes/Report: 11.5% glycohemoglobin 11.5% 5 - 6.5 % P-Comprehensive Metabolic Pa dora (CMP) Reviewed date:01/18/2025 01:29:05 PM Interpretation:gluc 246, Cr 1.45, gfr 52 Performing Lab: Notes/Report: Test performed by [facility] [address] [place] [address] , [address], [place] [address] Radhames Storm MD, [employer] CLIA: [id number] Sodium 137 135-145 mmol/L Potassium 5.3 3.5-5.3 mmol/L Chloride 100 97-108 mmol/L CO2 24 22-32 mmol/L Glucose 246 65-99 mg/dL BUN 22 8-23 mg/dL Creatinine 1.45 0.70-1.30 mg/dL Calcium 9.9 8.6-10.4 mg/dL eGFR by Creatinine 52 >59 mL/min/1.73m2 Protein 6.4 6.0-8.3 g/dL Albumin 3.9 3.5-5.3 g/dL Alkaline Phosphatase 83 40-129 IU/L ALT (SGPT) 18 <5-55 IU/L AST (SGOT) 18 <5-46 IU/L Bilirubin, Total 0.3 <0.2-1.2 mg/dL A/G Ratio 1.6 1.1-2.5 P-Lipid Panel Reviewed date:01/18/2025 01:29:05 PM Interpretation:trigs 175, hdl 27, chol/hdl 5.15 Performing Lab: Notes/Report: Test performed by [facility] [address] [place] [address] , [address], [place] [address] Radhames Storm MD, [employer] CLIA: [id number] Cholesterol 139 <200 mg/dL Triglycerides 175 <150 mg/dL HDL Cholesterol 27 >39 mg/dL Cholesterol / HDL Ratio 5.15 0.00-4.99 Ratio Non-HDL Cholesterol 112 <130 mg/dL LDL Cholesterol (Calculation) 77 <130 mg/dL LDL Cholesterol Levels* Less than 100 mg/dL Optimal 100 to 129 mg/dL Near Optimal/ Above Optimal 130 to 159 mg/dL Borderline High 160 to 189 mg/dL High 190 mg/dL and above Very High * Categories as recommended by the 2004 ATPIII guidelines LDL/HDL Ratio 2.9 <3.3 Ratio LDL Cholesterol Patient History Test Date: 10/23/2023 LDL Results: 53 Units: mg/dL % Change: +23% Test Date: 04/23/2024 LDL Results: 51 Units: mg/dL % Change: -3% Test Date: 01/15/2025 LDL Results: 77 Units: mg/dL % Change: +50% P-Phosphorus Reviewed date:01/18/2025 01:29:05 PM Interpretation:Normal Performing Lab: Notes/Report: Test performed by [facility], [place] [id number] [facility] , [address], [place] [address] Radhames Storm MD, [employer] CLIA: [id number] Phosphorus 3.0 2.5-4.5 mg/dL REASON FOR VISIT Check Up and Labs Medications Medication SIG (Take, Route, Frequency, Duration) Notes Start Date End Date Status amLODIPine Besylate 5 MG 1 tab(s) orally once a day; Duration: 90 days Not-Taking Carvedilol 12.5 MG 1 tab(s) orally 2 times a day; Duration: 90 days Not-Taking Gabapentin 100 MG 1 cap orally 2 times a day; Duration: 90 days 01/15/2025 Active Fenofibrate 160 MG 1 tab(s) with a meal orally once a day; Duration: 90 days Active Atorvastatin Calcium 10 MG take 1 tablet by mouth once daily Orally once daily; Duration: 90 days Active BD Pen Needle Short U/F DIRECTED SUBCUTANEOUS TWO TIMES A DAY *Please review and pick correct strength-formulat ion from [employer] options. If intended option is not shown, discontinue and re-order from Quick Search* 03/08/2015 Not-Taking metFORMIN HCl 500 MG take 2 tablets by mouth twice daily Orally Two times a day; Duration: 90 days Active BD Pen Needle Short U/F 31 GUAGE X 5/16 INCH 1 needle ONCE A DAY E11.9 *Please review and pick correct strength-formulat ion from [employer] options. If intended option is not shown, discontinue and re-order from Quick Search* Active Toujeo SoloStar 300 UNIT/ML 30 units subcutaneously once a day Active Accu-Chek Gracie Plus 1 TEST STRIP(S) FINGERSTICK TEST 3 TIMES A DAY OR DIRECTED; Duration: 30 DAYS *Please review and pick correct strength-formulat ion from [employer] options. If intended option is not shown, discontinue and re-order from Quick Search* 01/07/2020 Not-Taking Lancets 1 LANCET FINGERSTICK TEST 3 TIMES A DAY OR DIRECTED; Duration: 30 DAYS *Please review and pick correct strength-formulat ion from [employer] options. If intended option is not shown, discontinue and re-order from Quick Search* 01/07/2020 Not-Taking GLUCOMETER 1 METER TEST 3 TIMES A DAY OR DIRECTED; Duration: 30 DAYS *Please review for potential replacement for e-prescription and drug interaction check* 01/07/2020 Not-Taking Aspirin 81 MG 1 tab(s) orally once a day; Duration: 90 days Active Carvedilol 6.25 MG 1 tablet with food Orally Twice a day; Duration: 90 days 01/15/2025 Active Vital Signs Weight 216.2 lbs 01/15/2025 Blood pressure systolic 120 mm Hg 01/16/20 25 Blood pressure diastolic 78 mm Hg 025 Heart Rate 86 /min 01/15/2025 Height 70 in 01/15/2025 BMI 31.02 kg/m2 01/15/2025 Encounters Encounter Location Date Provider Diagnosis [facility] [address] [facility] [address] [place], [place] [id number] 01/15/2025 Darwin Martinez Type 2 diabetes rema itus without complications E11.9 ; Essential hypertension I10 ; Mixed hyperlipidemia E78.2 ; Stage 3a chronic kidney disease N18.31 ; Neuropathy G62.9 ; Chronic congestive heart failure, unspecified heart failure type I50.9 ; Colon cancer screening Z12.11 and Other insomnia G47.09 Assessments Encounter Date Diagnosis (ICD Code) Assessment Notes Treatment Notes Treatment Clinical Notes Section Notes 01/15/2025 Type 2 diabetes mellitus without complications (ICD-10 - E11.9) 01/15/2025 Essential hypertension (ICD-10 - I10) 01/15/2025 Mixed hyperlipidemia (ICD-10 - E78.2) 01/15/2025 Stage 3a chronic kidney disease (ICD-10 - N18.31) 01/15/2025 Neuropathy (ICD-10 - G62.9) 01/15/2025 Chronic congestive heart failure, unspecified heart failure type (ICD-10 - I50.9) 01/15/2025 Colon cancer screening (ICD-10 - Z12.11) 01/15/2025 Other insomnia (ICD-10 - G47.09) Plan Of Treatment Medication Medication Name Sig Start Date Stop Date Notes Brilinta 90 MG Take 1 tablet by twice daily Rybelsus 14 MG 1 tablet at least 30 minutes before first food, beverage or other oral medicine of the day Orally Once a day 05/06/2024 Gabapentin 100 MG 1 cap orally 2 times a day; Duration: 90 days 01/15/2025 Vistaril 25 MG 1 cap orally at bed time Fenofibrate 160 MG 1 tab(s) with a meal orally once a day; Duration: 90 days Atorvastatin Calcium 10 MG take 1 tablet by mouth once daily Orally once daily; Duration: 90 days Furosemide 40 MG 1 tab(s) orally once a day metFORMIN HCl 500 MG take 2 tablets by m outh twice daily Orally Two times a day; Duration: 90 days BD Pen Needle Short U/F 31 GUAGE X 5/16 INCH 1 needle ONCE A DAY E11.9 *Margareth gilmore review and pick correct strength-formulation from [employer] options. If intended option is not shown, discontinue and re-order from Quick Search* Toujeo SoloStar 300 UNIT/ML 30 units subcutaneously once a day Carvedilol 12.5 MG 1 tab(s) orally 2 ti mes a day amLODIPine Besylate 5 MG 1 tab(s) orally once a day Aspirin 81 MG 1 tab(s) orally once a day; Duration: 90 days Carvedilol 6.25 MG 1 tablet with food Orally Twice a day; Duration: 90 days 01/15/2025 Pending Test Test Name Order Date [facility] 01/15/2025 Next Appt Details Follow Up: 3.5 months, Reaso n: Provider Name:Darwin Fonseca , 10/26/2025 09:30:00 AM, [address] [facility] [address] [facility], [address], [place], [place], [id number], Progress Notes * PETETamera SOSAOB: 6 (70 yo M)Acc No.[id number]:01/15/2025 Progress Notes Patient: Herminia MONTOYA Provider: Javier Martinez M.D. :1955 A ge:69 Y S ex:Male Date:01/15/2025 Address:[address] [place] [id number] Subjective: * Chief Complaints: * 1 . Check Up and Labs. * HPI: H PI: 69 year old male presents with c/o Patient is here today for?Pt is here today for a check up and labs. Pt sts he does need refills on all of his medications. Pt sts he is not fasting. He has been out of all of his medications for the past 3 months.? * ROS: D ERMATOLOGY: no R shaunna. [...] for 3 years and quit. * Medications: N ot-Taking Aspirin 81 MG Tablet Delayed Release 1 tab(s) orally once a day , Not-Taking GLUCOMETER 1 METER TEST 3 TIMES A DAY OR DIRECTED , Notes to Pharmacist: *Please review for potential replacement for e-prescription and drug interaction check*, Not-Taking Lancets 1 LANCET FINGERSTICK TEST 3 TIMES A DAY OR DIRECTED , Notes to Pharmacist: *Please review and pick correct strength- formulation from [employer] options. If intended option is not shown, discontinue and re-order from Quick Search*, Not-Taking Accu-Chek Gracie Plus 1 TEST STRIP(S) FINGERSTICK TEST 3 TIMES A DAY OR DIRECTED , Notes to Pharmacist: *Please review and pick correct strength-formulation from [employer] options. If intended option is not shown, discontinue and re-order from Quick Search*, Not-Taking BD Pen Needle Short U/F 32G X 4MM DIRECTED SUBCUTANEOUS TWO TIMES A DAY , Notes to Pharmacist: *Please review and pick correct strength-formulation from [employer] options. If intended option is not shown, discontinue and re-order from Quick Search*, Not-Taking Carvedilol 12.5 MG Tablet 1 tab(s) orally 2 times a day , Not-Taking amLODIPine Besylate 5 MG Tablet 1 tab(s) orally once a day , Not-Taking Toujeo SoloStar 300 UNIT/ML Solution Pen-injector 30 units subcutaneously once a day , Not-Taking BD Pen Needle Short U/F 31 GUAGE X 5/16 INCH 1 needle ONCE A DAY , Notes to Pharmacist: E11.9 *Please review and pick correct strength-formulation from [employer] options. If intended option is not shown, discontinue and re-order from Quick Search*, Not-Taking metFORMIN HCl 500 MG Tablet take 2 tablets by mouth twice daily Orally Two times a day , Not- Taking Carvedilol 12.5 MG Tablet 1 tab(s) orally 2 times a day , Not-Taking amLODIPine Besylate 5 MG Tablet 1 tab(s) orally once a day , Not-Taking Furosemide 40 MG Tablet 1 tab(s) orally once a day , Not-Taking Atorvastatin Calcium 10 MG Tablet take 1 tablet by mouth once daily Orally once daily , Not-Taking Fenofibrate 160 MG Tablet 1 tab(s) with a meal orally once a day , Not-Taking Vistaril 25 MG Capsule 1 cap orally at bed time , Not-Taking Rybelsus 14 MG Tablet 1 tablet at least 30 minutes before first food, beverage or other oral medicine of the day Orally Once a day , Not- Taking Brilinta 90 MG Tablet Take 1 tablet by mouth twice daily , Not-Taking Gabapentin 100 MG Capsule 1 cap orally 2 times a day , Medication List reviewed and reconciled with the patient * Allergies: L isinopril: dry cough. Objective: * Vitals: W t: 216.2, Temp: 98.2, BP: 120/78, HR: 86, Nurse: yeni, Ht: 70, BMI:31.02. * Examination: E ndocrinology: General Appearance: N AD. H eart: R SR. L ungs:?clear to auscultation. E xtremities: n o leg edema. Assessment: * Assessment: 1. T ype 2 diabetes mellitus without complications - E11.9 (Primary) 2 . E ssential hypertension - I10 3 . M ixed hyperlipidemia - E78.2 4 . S tage 3a chronic kidney disease - N18.31 5 . N europathy - G62.9 & #160; 6 . C hronic congestive heart failure, unspecified heart failure type - I50.9 7 . C olon cancer screening - Z12.11 8 . O ther insomnia - G47.09 Plan: * Treatment: Value Reference Range A /G Ratio 1.6 1.1-2.5 - * A lbumin 3.9 3.5-5.3 - g/dL * A lkaline Phosphatase 83 40-129 - IU/L * A LT (SGPT) 18 <5-55 - IU/L * A ST (SGOT) 18 <5-46 - IU/L * B ilirubin, Total 0.3 <0.2-1.2 - mg/dL * B UN 22 8-23 - mg/dL * C alcium 9.9 8.6-10.4 - mg/dL * C hloride 100 97-108 - mmol/L * C O2 24 22-32 - mmol/L * C reatinine 1.45 H 0.70-1.30 - mg/dL * G lucose 246 H 65-99 - mg/dL * P otassium 5.3 3.5-5.3 - mmol/L * S odium 137 135-145 - mmol/L * P rotein 6.4 6.0-8.3 - g/dL * e GFR by Creatinine 52 L >59 - mL/min/1.73m2 * Fatou Cortez 01/18/2025 01 :28:56 PM EDT > See phone encounter ?LAB: Glucose (In-House) (Collection Date & Time - 01/15/2025)?243* Value Reference Range b lood glucose 243 74 - 106 mg/dL * Nannette Roberto 01/15/2025 11:28 :47 AM EDT > Fatou Cortez 01/18/2025 01:28:56 PM EDT > See phone encounter ?LAB: Glycohemoglobin A1c (in house) (Collection Date & Time - 01/15/2025)? 11.5%* Value Reference Range g lycohemoglobin 11.5% 5 - 6.5 % * Nannette Roberto 01/15/2025 11:31 :30 AM EDT > Fatou Cortez 01/18/2025 01:28:56 PM EDT > See phone encounter 2.?Essential hypertension? Stop amLODIPine Besylate Tablet, 5 MG, 1 tab(s), orally, once a day;?Stop Carvedilol Tablet, 12.5 MG, 1 tab(s), orally, 2 times a day;?Start Carvedilol Tablet, 6.25 MG, 1 tablet with food, Orally, Twice a day, 90 days, 180 Tablet, Refills 1;?Stop Furosemide Tablet, 40 MG, 1 tab(s), orally, once a day.?LAB: P-Comprehensive Metabolic Panel (CMP) (Collection Date & Time - 01/15/2025 09:37 AM)?gluc 246, Cr 1.45, gfr 52* Value Reference Range A /G Ratio 1.6 1.1-2.5 - * A lbumin 3.9 3.5-5.3 - g/dL * A lkaline Phosphatase 83 40-129 - IU/L * A LT (SGPT) 18 <5-55 - IU/L * A ST (SGOT) 18 <5-46 - IU/L * B ilirubin, Total 0.3 <0.2-1.2 - mg/dL * B UN 22 8-23 - mg/dL * C alcium 9.9 8.6-10.4 - mg/dL * C hloride 100 97-108 - mmol/L * C O2 24 22-32 - mmol/L * C reatinine 1.45 H 0.70-1.30 - mg/dL * G lucose 246 H 65-99 - mg/dL * P otassium 5.3 3.5-5.3 - mmol/L * S odium 137 135-145 - mmol/L * P rotein 6.4 6.0-8.3 - g/dL * e GFR by Creatinine 52 L >59 - mL/min/1.73m2 * Fatou Cortez 01/18/2025 01 :28:56 PM EDT > See phone encounter 3.?Mixed hyperlipidemia? Refill Atorvastatin Calcium Tablet, 10 MG, take 1 tablet by mouth once daily, Orally, once daily, 90 days, 90, Refills 1;?Refill Fenofibrate Tablet, 160 MG, 1 tab(s) with a meal, orally, once a day, 90 days, 90, Refills 1.?LAB: P-Comprehensive Metabolic Panel (CMP) (Collection Date & Time - 01/15/2025 09:37 AM)?gluc 246, Cr 1.45, gfr 52* Value Reference Range A /G Ratio 1.6 1.1-2.5 - * A lbumin 3.9 3.5-5.3 - g/dL * A lkaline Phosphatase 83 40-129 - IU/L * A LT (SGPT) 18 <5-55 - IU/L * A ST (SGOT) 18 <5-46 - IU/L * B ilirubin, Total 0.3 <0.2-1.2 - mg/dL * B UN 22 8-23 - mg/dL * C alcium 9.9 8.6-10.4 - mg/dL * C hloride 100 97-108 - mmol/L * C O2 24 22-32 - mmol/L * C reatinine 1.45 H 0.70-1.30 - mg/dL * G lucose 246 H 65-99 - mg/dL * P otassium 5.3 3.5-5.3 - mmol/L * S odium 137 135-145 - mmol/L * P rotein 6.4 6.0-8.3 - g/dL * e GFR by Creatinine 52 L >59 - mL/min/1.73m2 * Fatou Cortez 01/18/2025 01 :28:56 PM EDT > See phone encounter ?LAB: P-Lipid Panel (Collection Date & Time - 01/15/2025 09:37 AM)?trigs 175, hdl 27, chol/hdl 5.15* Value Reference Range C holesterol / HDL Ratio 5.15 H 0.00-4.99 - Ratio * C holesterol 139 <200 - mg/dL * H DL Cholesterol 27 L >39 - mg/dL * L DL Cholesterol (Calculation) 77 <130 - mg/d L * L DL/HDL Ratio 2.9 <3.3 - Ratio * N on-HDL Cholesterol 112 <130 - mg/dL * T riglycerides 175 H <150 - mg/dL * Fatou Cortez 01/18/2025 01 :28:56 PM EDT > See phone encounter 4.?Stage 3a chronic kidney disease?LAB: P-Phosphorus (Collection Date & Time - 01/15/2025 09:37 AM)?Normal* Value Reference Range P hosphorus 3.0 2.5-4.5 - mg/dL * Fatou Cortez 01/18/2025 01 :28:56 PM EDT > See phone encounter ?LAB: CBC Venipuncture (in house) (Collection Date & Time - 01/15/2025)?rbc 6.94, hgb 20.2, hct 63.3* Value Reference Range w bc 4.4 3.5 - 10 * l ymph 21.7 15 - 50 * m id 6.1 2 - 15 * g ran 72.2 35 - 80 * r bc 6.94 3.5 - 5.5 * h gb 20.2 11.5 - 16.5 * h ct 63.3 35 - 55 * m cv 91.2 75 - 100 * m ch 29.2 25 - 35 * m chc 32.0 31 - 38 * p latlet 116 100 - 400 * Nannette Roberto 01/15/2025 11:29 :40 AM EDT > Dana Fatou 01/18/2025 01:28:56 PM EDT > See phone encounter 5.?Neuropathy? Refill Gabapentin Capsule, 100 MG, 1 cap, orally, 2 times a day, 90 days, 180, Refills 1.? 6.?Colon cancer screening?LAB: Cologuard* Jacqueline Pinzon 01/18/2025 05:2 8:10 PM EDT > order faxed 7.?Other insomnia? Stop Vistaril Capsule, 25 MG, 1 cap, orally, at bed time.??8.?Others? Refill Aspirin Tablet Delayed Release, 81 MG, 1 tab(s), orally, once a day, 90 days, 90, Refills 1; Stop Brilinta Tablet, 90 MG, Take 1 tablet by mouth twice daily.?? * Procedure Codes: G 2211 Complex e/[place], [address] GLUCOSE TEST, 54016 GLYCATED HEMOGLOBIN TEST, Modifiers: QW , 82280 CBC WITH AUTO DIFF, 3046F HEMOGLOBIN A1C LEVEL > 9.0%, G8783 BP SCR PRFRM RCMDD DEFIND SCR INTVL, G8752 MOST RECENT SYSTOLIC BP < 140MM HG, G8754 MOST RECENT DIASTOLIC BP < 90MM HG, 1036F TOBACCO NON-USER * Follow Up: 3 .5 months * Images: Billing Information: * Visit Code: 40862 Office Visit, Est Pt., Level 4. * Procedure Codes: G2211 Complex e/[place]. [address] GLUCOSE TEST. 15031 GLYCATED HEMOGLOBIN TEST. Modifiers: QW 71099 CBC WITH AUTO DIFF. 3046F HEMOGLOBIN A1C LEVEL > 9.0%. G8783 BP SCR PRFRM RCMDD DEFIND SCR INTVL. G8752 MOST RECENT SYSTOLIC BP < 140MM HG. G8754 MOST RECENT DIASTOLIC BP < 90MM HG. 1036F TOBACCO NON-USER. * Electronic signature of Celina Martinez MD on 07/19/2025 at 07:53 AM EST Sign off status: Pending * Provider: Javier Martinez M.D. Date: 0 01/15/2025 Generated for Nina carranza/Yaron/Krishnasmitting on: 1 09/19/2024 07:53 AM EST History and Physical Notes * HPI (History of Present Illness) Category Sub-Category Detail Notes Category Not es HPI Patient is here today for Pt is here today for a check up and labs. Pt sts he does need refills on all of his medications. Pt sts he is not fasting. He has been out of all of his medications for the past 3 months Examination Category Sub-Category Detail Notes Category Not es Endocrinology Heart: RSR Lungs: clear to auscultatio n Extremities: no leg edema General Appearance: NAD
--- OUTSIDE RECORDS SUMMARY | 2025-04-27 04:45 | XMS_ITS ---
Author Organization [facility] Address [address] [facility] [address] [place] [phone] Care Team Providers Care Print Shop Stenographer Name Role Phone Darwin Martinez Primary Care Provider Melita Lawrence Unavailable [phone] Allergies Allergen (clinical drug ingredient) Drug/Non Drug Allergy documented on EMR Reaction Allergy Type Onset Date Status lisinopril Lisinopril dry cough Drug Allergy Activ e Results Component Value Reference Range Notes Glucose (In-House) Reviewed date:04/27/2025 11:06:41 AM Interpretation: Performing Lab: Notes/Report: blood glucose 335 74 - 106 mg/dL Glycohemoglobin A1c (in hous e) Reviewed date:04/27/2025 11:06:49 AM Interpretation: Performing Lab: Notes/Report: glycohemoglobin 13.5% 5 - 6.5 % P-Vitamin B12 Reviewed date:04/29/2025 09:29:56 AM Interpretation: Normal Performing Lab: Notes/Report: Test performed by [facility] [address] [place], [place] [address] [place] , [address], [place] [address] Radhames Storm MD, Novelty Maker CLIA: [id number] Vitamin B12 118 012-6339 pg/mL P-Comprehensive Metabolic Pa dora (CMP) Reviewed date:04/29/2025 09:29:56 AM Interpretation:K 5.4, Glu 324, Creat 1.50, eGFR 50 Performing Lab: Notes/Report: Test performed by [facility] [address] [place] [address] [address]enny [address], [address], [place] [address] Radhames Storm MD, Novelty Maker CLIA: [id number] Sodium 136 135-145 mmol/L Potassium 5.4 3.5-5.3 mmol/L Chloride 101 97-108 mmol/L CO2 23 20-32 mmol/L Glucose 324 65-99 mg/dL BUN 23 8-23 mg/dL Creatinine 1.50 0.70-1.30 mg/dL Calcium 9.5 8.6-10.4 mg/dL eGFR by Creatinine 50 >59 mL/min/1.73m2 Protein 6.7 6.0-8.3 g/dL Albumin 3.8 3.5-5.3 g/dL Alkaline Phosphatase 75 40-129 IU/L ALT (SGPT) 18 <5-55 IU/L AST (SGOT) 16 <5-46 IU/L Bilirubin, Total 0.3 <0.2-1.2 mg/dL A/G Ratio 1.3 1.1-2.5 P-Lipid Panel Reviewed date:04/29/2025 09:29:56 AM Interpretation:Trigs 174, HDL 20, Chol/HDL 5.35 Performing Lab: Notes/Report: Test performed by [facility], [facility] [address] [place] [address] , [address], [place] [address] Radhames Storm MD, Novelty Maker CLIA: [id number] Cholesterol 107 <200 mg/dL Triglycerides 174 <150 mg/dL HDL Cholesterol 20 >39 mg/dL Cholesterol / HDL Ratio 5.35 0.00-4.99 Ratio Non-HDL Cholesterol 87 <130 mg/dL LDL Cholesterol (Calculation) 52 <130 mg/dL LDL Cholesterol Levels* Less than 100 mg/dL Optimal 100 to 129 mg/dL Near Optimal/ Above Optimal 130 to 159 mg/dL Borderline High 160 to 189 mg/dL High 190 mg/dL and above Very High * Categories as recommended by the 2004 ATPIII guidelines LDL/HDL Ratio 2.6 <3.3 Ratio LDL Cholesterol Patient History Test Date: 04/23/2024 LDL Results: 51 Units: mg/dL % Change: -3% Test Date: 01/15/2025 LDL Results: 77 Units: mg/dL % Change: +50% Test Date: 04/27/2025 LDL Results: 52 Units: mg/dL % Change: -32% P-Phosphorus Reviewed date:04/29/2025 09:29:56 AM Interpretation: Normal Performing Lab: Notes/Report: Test performed by [facility] [address] [place], [place] [address] [place] [address], [place] [address] Radhames Storm MD, Novelty Maker CLIA: [id number] Phosphorus 3.4 2.5-4.5 mg/dL P-PSA Reviewed date:04/29/2025 09:29:56 AM Interpretation:3.09 Performing Lab: Notes/Report: Test performed by [facility] [address] [place] [address] [place] [address] Radhames Storm MD, Novelty Maker CLIA: [id number] PSA 3.09 <4.00 ng/mL Please note this is an ultrasensitive PSA assay with a lower limit of detection of 0.014 ng/mL. This test is performed by the Christal ECLIA methodology. Values obtained with different assay methods or kits cannot be directly compared. P-Parathyroid Hormone (PTH) Intact Reviewed date:04/29/2025 09:29:56 AM Interpretation: Normal Performing Lab: Notes/Report: Test performed by [facility] [address] , [facility] [place] [address] Radhames Storm MD, Novelty Maker CLIA: [id number] Parathyroid Hormone (PTH) Intact 22.7 15.0-65.0 pg/mL P-Microalbumin/Creatinine, R andom Urine Sample Reviewed date:04/29/2025 09:29:57 AM Interpretation:Alb 165 Performing Lab: Notes/Report: Test performed by [facility] [address] , [address], [place] [address] Radhames Storm MD, Novelty Maker CLIA: [id number] Albumin/Creatinine Ratio, Urine 165 0-30 ug/m g Microalbumin, Urine, Random 21.5 Creatinine, Urine 130.6 Reason For Referral Diagnosis 1 Uncontrolled type 2 diabetes mellitus with hyperglycemia (E11.65) Referral Organization [facility] Referring Provider First Name Darwin Referring Provider Last Name Michelle Referring Provider Speciality Family [facility] Referred Provider Mick Lomeli Referred Provider Specialty Endocrinolog y General Notes Shanice Carlos 2024 11:46:33 AM > faxed to [facility] EndocrinologyBreanna Brynn 05/06/2025 09:22:51 AM > [facility] Endo has reached out twice to schedule but no answer from patient Referral Priority Routine REASON FOR VISIT 3 months Medications Medication SIG (Take, Route, Frequency, Duration) Notes Start Date End Date Status Aspirin 81 MG 1 tab(s) orally once a day; Duration: 90 days Active Carvedilol 6.25 MG 1 tablet with food Orally Twice a day; Duration: 90 days 01/15/2025 Active Toujeo SoloStar 300 UNIT/ML 30 units subcutaneously once a day Active BD Pen Needle Short U/F 31 GUAGE X 5/16 INCH 1 needle ONCE A DAY E11.9 *Please review and pick correct strength-formulat ion from [employer] options. If intended option is not shown, discontinue and re-order from Quick Search* Active metFORMIN HCl 500 MG take 2 tablets by mouth twice daily Orally Two times a day; Duration: 90 days Active GLUCOMETER 1 METER TEST 3 TIMES A DAY OR DIRECTED; Duration: 30 DAYS *Please review for potential replacement for e-prescription and drug interaction check* 01/07/2020 Not-Taking Lancets 1 LANCET FINGERSTICK TEST 3 TIMES A DAY OR DIRECTED; Duration: 30 DAYS *Please review and pick correct strength-formulat ion from [employer] options. If intended option is not shown, discontinue and re-order from Quick Search* 01/07/2020 Not-Taking Accu-Chek Gracie Plus 1 TEST STRIP(S) FINGERSTICK TEST 3 TIMES A DAY OR DIRECTED; Duration: 30 DAYS *Please review and pick correct strength-formulat ion from [employer] options. If intended option is not shown, discontinue and re-order from Quick Search* 01/07/2020 Not-Taking BD Pen Needle Short U/F DIRECTED SUBCUTANEOUS TWO TIMES A DAY *Please review and pick correct strength-formulat ion from [employer] options. If intended option is not shown, discontinue and re-order from Quick Search* 03/08/2015 Not-Taking Carvedilol 12.5 MG 1 tab(s) orally 2 times a day; Duration: 90 days Not-Taking Atorvastatin Calcium 10 MG take 1 tablet by mouth once daily Orally once daily; Duration: 90 days Active Fenofibrate 160 MG 1 tab(s) with a meal orally once a day; Duration: 90 days Active Gabapentin 100 MG 1 cap orally 2 times a day; Duration: 90 days 01/15/2025 Active amLODIPine Besylate 5 MG Take 1 tablet by mouth once daily; Duration: 90 Active Immunizations Vaccine Route Administration Date Status Comme nts Fluzone High Dose (65yr and older) IM Intramuscular 04/27/2025 Administered Problems Problem Type SNOMED Code ICD Code Onset Dates Problem Status W/U Status Risk Notes Problem Hyperglycemia due to type 2 diabetes mellitus (104410986444015) Uncontrolled type 2 diabetes mellitus with hyperglycemia (E11.65) Active confirmed Problem Diabetic peripheral neuropathy associated with type 2 diabetes mellitus ([id number]) Type 2 diabetes mellitus with diabetic neuropathy, unspecified whether residential insulin use (E11.40) Active confirmed Problem Body mass index 30.00 to 34.99 ([id number]) BMI 31.0-31.9,adult (Z68.31) Active confirmed Vital Signs Weight 221.8 lbs 04/27/2025 Blood pressure systolic 120 mm Hg 04/27/20 25 Blood pressure diastolic 72 mm Hg 025 Heart Rate 77 /min 04/27/2025 Height 70 in 04/27/2025 BMI 31.82 kg/m2 04/27/2025 Encounters Encounter Location Date Provider Diagnosis [facility] [address] [facility] [address] [place] [phone] 04/27/2025 Darwin Martinez Type 2 diabetes rema itus without complications E11.9 ; Essential hypertension I10 ; Mixed hyperlipidemia E78.2 ; Stage 3a chronic kidney disease N18.31 ; Neuropathy G62.9 ; Chronic congestive heart failure, unspecified heart failure type I50.9 ; Coronary artery disease involving [place] heart without angina pectoris, unspecified vessel or lesion type I25.10 ; Prostate cancer screening Z12.5 ; Encounter for immunization Z23 ; Uncontrolled type 2 diabetes mellitus with hyperglycemia E11.65 ; 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 ; Type 2 diabetes mellitus with diabetic neuropathy, unspecified whether extermination inspector insulin use E11.40 and BMI 31.0-31.9,adult Z68.31 Assessments Encounter Date Diagnosis (ICD Code) Assessment Notes Treatment Notes Treatment Clinical Notes Section Notes 04/27/2025 Type 2 diabetes mellitus without complications (ICD-10 - E11.9) 04/27/2025 Essential hypertension (ICD-10 - I10) 04/27/2025 Mixed hyperlipidemia (ICD-10 - E78.2) 04/27/2025 Stage 3a chronic kidney disease (ICD-10 - N18.31) 04/27/2025 Neuropathy (ICD-10 - G62.9) 04/27/2025 Chronic congestive heart failure, unspecified heart failure type (ICD-10 - I50.9) 04/27/2025 Coronary artery disease involving [place] heart without angina pectoris, unspecified vessel or lesion type (ICD-10 - I25.10) 04/27/2025 Prostate cancer screening (ICD-10 - Z12.5) 04/27/2025 Encounter for immunization (ICD-10 - Z23) 04/27/2025 Uncontrolled type 2 diabetes mellitus with hyperglycemia (ICD-10 - E11.65) Spoke to patient's pharmacist. He has medications ready for pickup for the past 2 weeks but has yet to fill the prescriptions. Compliance issues reviewed with patient. 04/27/2025 Chronic kidney disease due to diabetes mellitus (ICD-10 - E11.22) 04/27/2025 Type 2 diabetes mellitus with diabetic neuropathy, unspecified whether extermination inspector insulin use (ICD-10 - E11.40) 04/27/2025 BMI 31.0-31.9,adult (ICD-10 - Z68.31) Plan Of Treatment Treatment Notes Assessment Notes Uncontrolled type 2 diabetes mellitus with hyperglycemia Spoke to patient's pharmacist. He has medications ready for pickup for the past 2 weeks but has yet to fill the prescriptions. Compliance issues reviewed with patient. Referrals Referral Date Details 04/27/2025 04/27/2025, Mick Lomeli Next Appt Details Follow Up: 6 Months, Reason: Provider Name:Darwin Fonseca ry, 10/26/2025 09:30:00 AM, [address] [facility] [address] [facility], [address] , [place], [place], [phone], Progress Notes * CHANOTamera SOSAOB: 6 (70 yo M)Acc No.[id number]:04/27/2025 Progress Notes Patient: Herminia MONTOYA Provider: Javier Martinez M.D. :1955 A ge:70 Y S ex:Male Date:04/27/2025 Address:[address] [place] [id number] Subjective: * Chief Complaints: * 1 . 3 months. * HPI: C ardiology: 70 year old male presents with c/o Hyperlipidemia P t is fasting today. E ndocrinology: c/o Recent Blood Sugars P t here for follow up on DM2. Patient has not been taking all of his medications. * Medical History: D iabetes, Hyperlipidemia, Renal [...] tab(s) orally once a day , Taking Carvedilol 6.25 MG Tablet 1 tablet with food Orally Twice a day , Taking Toujeo SoloStar 300 UNIT/ML Solution Pen-injector 30 units subcutaneously once a day , Taking BD Pen Needle Short U/F 31 GUAGE X 5/16 INCH 1 needle ONCE A DAY , Notes to Pharmacist: E11.9 *Please review and pick correct strength-formulation from [employer] options. If intended option is not shown, discontinue and re-order from Quick Search*, Taking metFORMIN HCl 500 MG Tablet take 2 tablets by mouth twice daily Orally Two times a day , Taking Atorvastatin Calcium 10 MG Tablet take 1 tablet by mouth once daily Orally once daily , Taking Fenofibrate 160 MG Tablet 1 tab(s) with a meal orally once a day , Taking Gabapentin 100 MG Capsule 1 cap orally 2 times a day , Taking amLODIPine Besylate 5 MG Tablet Take 1 tablet by mouth once daily , Not-Taking GLUCOMETER 1 METER TEST 3 TIMES A DAY OR DIRECTED , Notes to Pharmacist: *Please review for potential replacement for e-prescription and drug interaction check*, Not-Taking Lancets 1 LANCET FINGERSTICK TEST 3 TIMES A DAY OR DIRECTED , Notes to Pharmacist: *Please review and pick correct strength- formulation from [employer] options. If intended option is not shown, discontinue and re-order from Quick Search*, Not-Taking Accu-Chek Gracie Plus 1 TEST STRIP(S) FINGERSTICK TEST 3 TIMES A DAY OR DIRECTED , Notes to Pharmacist: *Please review and pick correct strength-formulation from [employer] options. If intended option is not shown, [...] tab(s) orally 2 times a day , Medication List reviewed and reconciled with the patient * Allergies: L isinopril: dry cough. Objective: * Vitals: W t: 221.8, Temp: 98.2, BP: 120/72, HR: 77, Nurse: RONNELL, Ht: 70, BMI:31.82. * Examination: G eneral Examination: General Appearance: N AD. H eart: R SR. L ungs:?clear to auscultation. Assessment: * Assessment: 1. T ype 2 diabetes mellitus without complications - E11.9 (Primary) 2 . E ssential hypertension - I10 3 . M ixed hyperlipidemia - E78.2 4 . S tage 3a chronic kidney disease - N18.31 5 . N europathy - G62.9 & #160; 6 . C hronic congestive heart failure, unspecified heart failure type - I50.9 7 . C oronary artery disease involving [place] heart without angina pectoris, unspecified vessel or lesion type - I25.10 8 . P rostate cancer screening - Z12.5 9. E ncounter for immunization - Z23 1 0. U ncontrolled type 2 diabetes mellitus with hyperglycemia - E11.65 1 1. C hronic kidney disease due to diabetes mellitus - E11.22 1 2. T ype 2 diabetes mellitus with diabetic neuropathy, unspecified whether residential insulin use - E11.40 1 3. B ID 31.0-31.9,adult - Z68.31 Plan: * Treatment: Value Reference Range A /G Ratio 1.3 1.1-2.5 - * A lbumin 3.8 3.5-5.3 - g/dL * A lkaline Phosphatase 75 40-129 - IU/L * A LT (SGPT) 18 <5-55 - IU/L * A ST (SGOT) 16 <5-46 - IU/L * B ilirubin, Total 0.3 <0.2-1.2 - mg/dL * B UN 23 8-23 - mg/dL * C alcium 9.5 8.6-10.4 - mg/dL * C hloride 101 97-108 - mmol/L * C O2 23 20-32 - mmol/L * C reatinine 1.50 H 0.70-1.30 - mg/dL * G lucose 324 H 65-99 - mg/dL * P otassium 5.4 H 3.5-5.3 - mmol/L * S odium 136 135-145 - mmol/L * P rotein 6.7 6.0-8.3 - g/dL * e GFR by Creatinine 50 L >59 - mL/min/1.73m2 * Jacqueline Pinzon 04/29/2025 09: 29:47 AM EDT > See phone encounter ?LAB: P-Microalbumin/Creatinine, Random Urine Sample (Collection Date & Time - 04/27/2025 09:37 AM)?Alb 165* Value Reference Range A lbumin/Creatinine Ratio, Urine 165 H 0-30 - ug /mg * C reatinine, Urine 130.6 - mg/dL * M icroalbumin, Urine, Random 21.5 - mg/dL * Jacqueline Pinzon 04/29/2025 09: 29:47 AM EDT > See phone encounter ?LAB: Glucose (In-House) (Collection Date & Time - 04/27/2025)* Value Reference Range b lood glucose 335 74 - 106 mg/dL * Juju Gooden 04/27/2025 11:02: 45 AM EDT > Provider reviewed results while patient in office. ?LAB: Glycohemoglobin A1c (in house) (Collection Date & Time - 04/27/2025)* Value Reference Range g lycohemoglobin 13.5% 5 - 6.5 % * Juju Gooden 04/27/2025 11:03: 11 AM EDT > Provider reviewed results while patient in office. 2.?Essential hypertension?LAB: P-Comprehensive Metabolic Panel (CMP) (Collection Date & Time - 04/27/2025 09:37 AM)?K 5.4, Glu 324, Creat 1.50, eGFR 50* Value Reference Range A /G Ratio 1.3 1.1-2.5 - * A lbumin 3.8 3.5-5.3 - g/dL * A lkaline Phosphatase 75 40-129 - IU/L * A LT (SGPT) 18 <5-55 - IU/L * A ST (SGOT) 16 <5-46 - IU/L * B ilirubin, Total 0.3 <0.2-1.2 - mg/dL * B UN 23 8-23 - mg/dL * C alcium 9.5 8.6-10.4 - mg/dL * C hloride 101 97-108 - mmol/L * C O2 23 20-32 - mmol/L * C reatinine 1.50 H 0.70-1.30 - mg/dL * G lucose 324 H 65-99 - mg/dL * P otassium 5.4 H 3.5-5.3 - mmol/L * S odium 136 135-145 - mmol/L * P rotein 6.7 6.0-8.3 - g/dL * e GFR by Creatinine 50 L >59 - mL/min/1.73m2 * Jacqueline Pinzon 04/29/2025 09: 29:47 AM EDT > See phone encounter 3.?Mixed hyperlipidemia?LAB: P-Comprehensive Metabolic Panel (CMP) (Collection Date & Time - 04/27/2025 09:37 AM)?K 5.4, Glu 324, Creat 1.50, eGFR 50* Value Reference Range A /G Ratio 1.3 1.1-2.5 - * A lbumin 3.8 3.5-5.3 - g/dL * A lkaline Phosphatase 75 40-129 - IU/L * A LT (SGPT) 18 <5-55 - IU/L * A ST (SGOT) 16 <5-46 - IU/L * B ilirubin, Total 0.3 <0.2-1.2 - mg/dL * B UN 23 8-23 - mg/dL * C alcium 9.5 8.6-10.4 - mg/dL * C hloride 101 97-108 - mmol/L * C O2 23 20-32 - mmol/L * C reatinine 1.50 H 0.70-1.30 - mg/dL * G lucose 324 H 65-99 - mg/dL * P otassium 5.4 H 3.5-5.3 - mmol/L * S odium 136 135-145 - mmol/L * P rotein 6.7 6.0-8.3 - g/dL * e GFR by Creatinine 50 L >59 - mL/min/1.73m2 * Jacqueline Pinzon 04/29/2025 09: 29:47 AM EDT > See phone encounter ?LAB: P-Lipid Panel (Collection Date & Time - 04/27/2025 09:37 AM)?Trigs 174, HDL 20, Chol/HDL 5.35* Value Reference Range C holesterol / HDL Ratio 5.35 H 0.00-4.99 - Ratio * C holesterol 107 <200 - mg/dL * H DL Cholesterol 20 L >39 - mg/dL * L DL Cholesterol (Calculation) 52 <130 - mg/d L * L DL/HDL Ratio 2.6 <3.3 - Ratio * N on-HDL Cholesterol 87 <130 - mg/dL * T riglycerides 174 H <150 - mg/dL * Jacqueline Pinzon 04/29/2025 09: 29:47 AM EDT > See phone encounter 4.?Stage 3a chronic kidney disease?LAB: P-Phosphorus (Collection Date & Time - 04/27/2025 09:37 AM)?Normal* Value Reference Range P hosphorus 3.4 2.5-4.5 - mg/dL * Jacqueline Pinzon 04/29/2025 09: 29:47 AM EDT > See phone encounter ?LAB: P-Parathyroid Hormone (PTH) Intact (Collection Date & Time - 04/27/2025 09:37 AM)?Normal* Value Reference Range P arathyroid Hormone (PTH) Intact 22.7 15.0-65. 0 - pg/mL * Jacqueline Pinzon 04/29/2025 09: 29:47 AM EDT > See phone encounter 5.?Neuropathy?LAB: P-Vitamin B12 (Collection Date & Time - 04/27/2025 09:37 AM)?Normal* Value Reference Range V itamin B12 861 186-9651 - pg/mL * Jacqueline Pinzon 04/29/2025 09: 29:47 AM EDT > See phone encounter 6.?Prostate cancer screening?LAB: P-PSA (Collection Date & Time - 04/27/2025 09:37 AM)?3.09* Value Reference Range P SA 3.09 <4.00 - ng/mL * Jacqueline Pinzon 04/29/2025 09: 29:47 AM EDT > See phone encounter 7.?Uncontrolled type 2 diabetes mellitus with hyperglycemia? Notes: Spoke to patient's pharmacist. He has medications ready for pickup for the past 2 weeks but has yet to fill the prescriptions. Compliance issues reviewed with patient.? Referral To:Mick Lomeli??Endocrinology ?Reason: * Immunizations: Fluzone High Dose (65yr and older) : 0.5 mL (Route: Intramuscular) given by Juju Gooden on Right Deltoid (Encounter for immunization) * Procedure Codes: G 2211 Complex e/[place], [address] GLUCOSE TEST, 18524 GLYCATED HEMOGLOBIN TEST, Modifiers: QW , 3046F HEMOGLOBIN A1C LEVEL > 9.0%, 1036F TOBACCO NON-USER, G8950 PREHTN/HTN BP DOC INDCD F/U DOC, G8752 MOST RECENT SYSTOLIC BP < 140MM HG, G8754 MOST RECENT DIASTOLIC BP < 90MM HG, 3074F SYST BP LT 130 MM HG, 3078F DIAST BP < 80 MM HG * Follow Up: 6 Months * Images: Billing Information: * Visit Code: 60604 Office Visit, Est Pt., Level 4. * Procedure Codes: G2211 Complex e/[place]. [address] GLUCOSE TEST. 70041 GLYCATED HEMOGLOBIN TEST. Modifiers: QW 3046F HEMOGLOBIN A1C LEVEL > 9.0%. 1036F TOBACCO NON-USER. G8950 PREHTN/HTN BP DOC INDCD F/U DOC. G8752 MOST RECENT SYSTOLIC BP < 140MM HG. G8754 MOST RECENT DIASTOLIC BP < 90MM HG. 3074F SYST BP LT 130 MM HG. 3078F DIAST BP < 80 MM HG. * Electronic signature of Celina Martinez MD on 07/19/2025 at 07:52 AM EST Sign off status: Pending * Provider: Javier Martinez M.D. Date: 0 04/27/2025 Generated for Nina carranza/Yaron/Tegan on: 1 09/19/2024 07:52 AM EST History and Physical Notes * HPI (History of Present Illness) Category Sub-Category Detail Notes Category Not es Endocrinology Recent Blood Sugars Pt here for follow up on DM2. Patient has not been taking all of his medications Cardiology Hyperlipidemia Pt is fasting today Examination Category Sub-Category Detail Notes Category Not es General Examination Heart: RSR Lungs: clear to auscultatio n General Appearance: NAD Consultation Request Notes Referral Date Referring Provider Referred Provider Not es 04/27/2025 Darwin Martinez Samhitha
--- OUTSIDE RECORDS SUMMARY | 2025-07-19 07:52 | XMS_ITS ---
Author Organization Unknown Medications Date Medication Dosage DosageUnit StartDate StopDate StopReason Active DoseQuantity DoseUnit Dispense DispenseUnit Refills NdcCode DrugCode PharmacyId IsPrescription MappedMedication Srcstatus Custom 04/27 00:00 :00 Accu-Chek Gracie Plus 01/07/2020 00:00:00 0 100 5 P Not Ta fuentes 07/09 00:00 :00 amLODIPine Besylate 5 MG Tablet 1 90 Tablet 0 [id number] 705 Start 07/09 00:00 :00 amLODIPine Besylate 5 MG Tablet 0 90 Tablet 0 65902582 705 Stop 04/27 00:00 :00 amLODIPine Besylate 5 MG Tablet 1 90 Tablet 0 53746964 705 Taking 04/15 00:00 :00 amLODIPine Besylate 5 MG Tablet 1 90 Tablet 0 43617582 705 Start 04/15 00:00 :00 amLODIPine Besylate 5 MG Tablet 0 90 Tablet 1 68678935 710 Stop 07/12 00:00 :00 Aspirin 81 MG Tablet Delayed Release 0 90 1 [id number] 474 Stop 04/27 00:00 :00 Aspirin 81 MG Tablet Delayed Release 1 90 1 74754742 474 P Taking 07/12 00:00 :00 Aspirin Low Dose 81 MG Tablet Delayed Release 1 90 Tablet 0 470556 75 180 Start 07/12 00:00 :00 Atorvastati n Calcium 10 MG Tablet 1 90 Tablet 0 06660163 610 Start 07/12 00:00 :00 Atorvastati n Calcium 10 MG Tablet 0 90 Tablet 0 10410358 610 Stop 07/05 00:00 :00 Atorvastati n Calcium 10 MG Tablet 1 90 Tablet 0 55216608 610 Start 07/05 00:00 :00 Atorvastati n Calcium 10 MG Tablet 0 90 1 000 88268 698 Stop 04/27 00:00 :00 Atorvastati n Calcium 10 MG Tablet 1 90 1 000 50141 698 P Taking 04/27 00:00 :00 BD Pen Needle Short U/F 31 GUAGE X 5/16 INCH 1 90 1 P Taking 04/27 00:00 :00 BD Pen Needle Short U/F 32G X 4MM 03/08/2015 00:00:00 0 1 BOX 5 P Not T aking 07/12 00:00 :00 Carvedilol 6.25 MG Tablet 1 180 Tablet 0 47142427 305 Start 07/12 00:00 :00 Carvedilol 6.25 MG Tablet 0 180 Tablet 1 28490557 501 Stop 05/24 00:00 :00 Carvedilol 12.5 MG Tablet 1 180 Tablet 1 03361438 501 Start 05/24 00:00 :00 Carvedilol 12.5 MG Tablet 0 180 Tablet 1 74715867 501 Stop 04/27 00:00 :00 Carvedilol 6.25 MG Tablet 01/15/2025 00:00:00 1 180 Tablet 1 75206409 501 P Taking 04/27 00:00 :00 Carvedilol 12.5 MG Tablet 0 180 Tablet 1 09738513 501 P Not Taking 07/12 00:00 :00 Fenofibrate 160 MG Tablet 1 90 Tablet 0 46499497 209 Start 07/12 00:00 :00 Fenofibrate 160 MG Tablet 0 90 1 0011 5552 210 Stop 04/27 00:00 :00 Fenofibrate 160 MG Tablet 1 90 1 0011 5552 210 P Taking 07/12 00:00 :00 Gabapentin 100 MG Capsule 07/14/2025 00:00:00 1 180 1 4865405 6 561 P Unknown Status 04/27 00:00 :00 Gabapentin 100 MG Capsule 01/15/2025 00:00:00 1 180 1 4337446 6 561 P Taking 04/27 00:00 :00 GLUCOMETER 01/07/2020 00:00:00 0 1 0 P Not Ta fuentes 04/28 00:00 :00 hydrOXYzine HCl 25 MG Tablet 04/29/2025 00:00:00 1 90 Tablet 1 46604 506 101 P Start 04/27 00:00 :00 Lancets 01/07/2020 00:00:00 0 100 5 P Not Ta fuentes 04/27 00:00 :00 metFORMIN HCl 500 MG Tablet 1 360 1 770964 58 259 P Taking 04/27 00:00 :00 Artemio Avitia 300 UNIT/ML Solution Pen-injecto r 1 27 mL 1 85691617 900 P Taking
--- OUTSIDE RECORDS SUMMARY | 2025-07-19 07:52 | XMS_ITS | Clinical Summary ---
Author Organization [facility] Address [address] [id number] Care Team Providers Care Cheese Grader Name Role Phone Darwin Martinez MD Primary Care Provider [phone] Allergies No known active allergies Medications metFORMIN [...] 2 - PCV20 or PCV21) 05/16/2022 05/16/2021 [id number] Vaccine (3 - season) 2025 04/24/2021, 03/27/2021 [...] Adults <6.0% Children and Adolescents <7.5% Source: [place] [employer]. Standards of medical care in diabetes,2017. Diabetes Care.2017:40 (suppl 1):S1-S135. HbA1c assay performed by an ion-exchange chromatography method that is certified traceable to the DCCT. us Jessica Hurley EGG SEPARATOR, DNP LAB BLOOD ORDERABLES Fin al Result [facility] [address] [place] [address] from Last 3 Months or Most Recently Relevant to Health Maintenance Insurance ANTHEM Advance Directives * Full Code (Latest Code Status on File) Date Activated Date Inactivated Comments 12/18/2021 11:11 AM 12/20/2021 1:04 PM Question Answer Comments Patient has decision-making capacity? Yes Care Teams Cheese Grader Relationship Specialty Start Date End Date Darwin Martinez MD [address] [facility] [address] [address] PCP - General 12/23/20
--- OUTSIDE RECORDS SUMMARY | 2025-07-19 07:53 | XMS_ITS | Patient Health Record ---
Author Organization [facility] Address [address] [id number] Care Team Providers Care Inspector Machine Cut Glass Name Role Phone Darwin Martinez Primary Care Provider [phone] Melita Lawrence Unavailable [phone] Allergies Allergen (clinical drug ingredient) Drug/Non Drug [...] Normal Performing Lab: Notes/Report: Test performed by [facility] [address] [place], [place] [address] [place] , [address], [place] [address] Radhames Storm MD, Vice President Global Advertising Sales CLIA: [id number] Vitamin B12 591 126-8287 pg/mL P-Comprehensive Metabolic Pa dora (CMP) Reviewed date:04/29/2025 09:29:56 AM Interpretation:K 5.4, Glu 324, Creat 1.50, eGFR 50 Performing Lab: Notes/Report: Test performed by [facility] [address] [place], [place] [address] [address], [address], [place] [address] Radhames Storm MD, Vice President [employer] CLIA: [id number] Sodium 136 135-145 mmol/L Potassium 5.4 3.5-5.3 [...] 5.35 Performing Lab: Notes/Report: Test performed by [facility] [employer] [address] [place] [address] , [address], [place] [address] Radhames Storm MD, Vice President [employer] CLIA: [id number] Cholesterol 107 <200 mg/dL Triglycerides 174 <150 [...] Normal Performing Lab: Notes/Report: Test performed by [facility] [address] [place], [place] [address] [place] [address], [place] [address] Radhames Storm MD, Vice President [employer] CLIA: [id number] Phosphorus 3.4 2.5-4.5 mg/dL P-PSA Reviewed date:04/29/2025 09:29:56 AM Interpretation:3.09 Performing Lab: Notes/Report: Test performed by [facility] [address] [place], [place] [address] [place] , [address], [place] [address] Radhames Storm MD, Vice President [employer] CLIA: [id number] PSA 3.09 <4.00 ng/mL Please note this is an ultrasensitive PSA assay with a lower limit of detection of 0.014 ng/mL. This test is performed by the Christal ECLIA methodology. Values obtained with different assay methods or kits cannot be directly compared. P-Parathyroid Hormone (PTH) Intact Reviewed date:04/29/2025 09:29:56 AM Interpretation: Normal Performing Lab: Notes/Report: Test performed by [facility] [address] [place] [address] , [address], [place] [address] Radhames Storm MD, Vice President [employer] CLIA: [id number] Parathyroid Hormone (PTH) Intact 22.7 15.0-65.0 pg/mL P-Microalbumin/Creatinine, R andom Urine Sample Reviewed date:04/29/2025 09:29:57 AM Interpretation:Alb 165 Performing Lab: Notes/Report: Test performed by [facility] [address] [place] [address] , [address], [place] [address] Radhames Storm MD, Vice President [employer] CLIA: [id number] Albumin/Creatinine Ratio, Urine 165 0-30 ug/m g Microalbumin, Urine, Random 21.5 Creatinine, Urine 130.6 CT Scan : Chest, low dose Reviewed date:05/14/2025 11:23:52 AM Interpretation:Chronic Bronchitis, 1 Year F/U Performing Lab: Notes/Report: Chronic Bronchitis, 1 Year F/U Glucose (In-House) Reviewed date:01/18/2025 01:29:05 PM Interpretation:243 [...] 52 Performing Lab: Notes/Report: Test performed by [facility] [address] [place] [address] , [address], [place] [address] Radhames Storm MD, Vice President [employer] CLIA: [id number] Sodium 137 135-145 mmol/L Potassium 5.3 3.5-5.3 [...] 5.15 Performing Lab: Notes/Report: Test performed by [facility] [address] [place] [address] , [address], [place] [address] Radhames Storm MD, Vice President [employer] CLIA: [id number] Cholesterol 139 <200 mg/dL Triglycerides 175 <150 [...] Interpretation:Normal Performing Lab: Notes/Report: Test performed by [facility] [address] [place] [address] , [address], [place] [address] Radhames Storm MD, Vice President [employer] CLIA: [id number] Phosphorus 3.0 2.5-4.5 mg/dL Reason For Referral Diagnosis 1 Uncontrolled type 2 diabetes mellitus with hyperglycemia (E11.65) Referral Organization [facility] Referring Provider First Name Darwin Referring Provider Last Name Michelle Referring Provider Speciality Family [facility] Referred Provider Mick Lomeli Referred Provider Specialty Endocrinolog y General Notes Shanice Carlos 2024 11:46:33 AM > faxed to [facility] Endocrinology, Shanice Carlos 05/06/2025 09:22:51 AM > [facility] Endo has reached out twice to schedule but no answer from patient Referral Priority Routine Medications Medication SIG (Take, Route, Frequency, Duration) Notes Start Date End Date Status hydrOXYzine HCl 25 MG 1 tablet at bedtime as needed Orally daily; Duration: 90 days 04/29/2025 Active amLODIPine Besylate 5 MG Take 1 tablet by mouth once daily; Duration: 90 Active Fenofibrate 160 MG TAKE 1 TABLET BY MOUTH WITH MEALS FOR 90 DAYS; Duration: 90 Active GLUCOMETER 1 METER TEST 3 TIMES A DAY OR DIRECTED; Duration: 30 DAYS *Please review for potential replacement for e-prescription and drug interaction check* 01/07/2020 Not-Taking Lancets 1 LANCET FINGERSTICK TEST 3 TIMES A DAY OR DIRECTED; Duration: 30 DAYS *Please review and pick correct strength-formulat ion from [employer] options. If intended option is not shown, discontinue and re-order from Quick Search* 01/07/2020 Not-Taking Carvedilol 6.25 MG TAKE 1 TABLET BY MOUTH WITH FOOD TWICE DAILY FOR 90 DAYS; Duration: 90 Active Atorvastatin Calcium 10 MG Take 1 tablet by mouth once daily; Duration: 90 Active Aspirin Low Dose 81 MG Take 1 tablet by mouth once daily for 90 days; Duration: 90 Active Accu-Chek Gracie Plus 1 TEST STRIP(S) FINGERSTICK TEST 3 TIMES A DAY OR DIRECTED; Duration: 30 DAYS *Please review and pick correct strength-formulat ion from [employer] options. If intended option is not shown, discontinue and re-order from Quick Search* 01/07/2020 Not-Taking Gabapentin 100 MG 1 cap orally 2 times a day; Duration: 90 days 07/14/2025 Active BD Pen Needle Short U/F DIRECTED SUBCUTANEOUS TWO TIMES A DAY *Please review and pick correct strength-formulat ion from [employer] options. If intended option is not shown, [...] review and pick correct strength-formulat ion from [employer] options. If intended option is not shown, [...] Problem Type II diabetes mellitus without complication (271327726) Type 2 diabetes mellitus without complications (E11.9) Active confirmed Problem Essential hypertension (31903117) Essential hypertension (I10) Active confirmed Problem Mixed hyperlipidemia (597059488) Mixed hyperlipidemia (E78.2) Active confirmed Problem Primary insomnia (1989827) Primary insomnia (F51.01) Active confirmed Problem Insomnia (127990348) Other insomnia (G47.09) Active confirmed Problem Neuropathy (243647032) Neuropathy (G62.9) Active confirmed Problem Body mass index 30.00 to 34.99 (884471397626718) BMI 31.0-31.9,adult (Z68.31) Active confirmed Problem Atherosclerotic heart disease of [place] coronary artery without angina pectoris (992715637865440) Coronary artery disease involving [place] heart without angina pectoris, unspecified vessel or lesion type (I25.10) Active confirmed Problem Heart failure (11900910) Chronic congestive heart failure, unspecified heart failure type (I50.9) Active confirmed Problem Hyperglycemia due to type 2 diabetes mellitus (944896478246677) Uncontrolled type 2 diabetes mellitus with hyperglycemia (E11.65) Active confirmed Problem Diabetic peripheral neuropathy associated with type 2 diabetes mellitus (7201238098991) Type 2 diabetes mellitus with diabetic neuropathy, unspecified whether termite control servicer insulin use (E11.40) Active confirmed Problem Chronic kidney disease stage 3A (062354430) Stage 3a chronic kidney disease (N18.31) Active confirmed Vital Signs Heart Rate 77 /min 04/27/2025 Blood pressure diastolic 72 mm Hg 04/27/2025 Height 70 in 04/27/2025 Blood pressure systolic 120 mm Hg 04/27/2025 Weight 221.8 lbs 04/27/2025 BMI 31.82 kg/m2 04/27/2025 Encounters Encounter Location Date Provider Diagnosis Fatimah [address] [facility] [address] [facility] [address] [place], [place] [id number] 01/15/2025 Darwin Farmland Type 2 diabetes rema itus without complications E11.9 ; Essential hypertension I10 ; Mixed hyperlipidemia E78.2 ; Stage 3a chronic kidney disease N18.31 ; Neuropathy G62.9 ; Chronic congestive heart failure, unspecified heart failure type I50.9 ; Colon cancer screening Z12.11 and Other insomnia G47.09 [facility] [address] [facility] [address] [place], [place] [id number] 04/27/2025 Darwin Farmland Type 2 diabetes rema itus without complications E11.9 ; Essential hypertension I10 ; Mixed hyperlipidemia E78.2 ; Stage 3a chronic kidney disease N18.31 ; Neuropathy G62.9 ; Chronic congestive heart failure, unspecified heart failure type I50.9 ; Coronary artery disease involving [place] heart without angina pectoris, unspecified vessel or lesion type I25.10 ; Prostate cancer screening Z12.5 ; Encounter for immunization Z23 ; Uncontrolled type 2 diabetes mellitus with hyperglycemia E11.65 ; 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 ; Type 2 diabetes mellitus with diabetic neuropathy, unspecified whether termite control servicer insulin use E11.40 and BMI 31.0-31.9,adult Z68.31 [facility] [address] [place], [place] [id number] 12/22/2024 Meilta Sullivandy [facility] [address] [place], [place] [id number] 01/18/2025 Darwin Farmland [facility] [address] [place], [place] [id number] 01/25/2025 Darwin Farmland [facility] [address] [place], [place] [id number] 04/28/2025 Melita Lawrence [facility] [address] [place], [place] [id number] 04/29/2025 Darwin Farmland [facility] [address] [place], [place] [id number] 05/03/2025 Darwin Farmland Encounter for screen ing for lung cancer Z12.2 [facility] [address] [place], [place] [id number] 05/14/2025 Darwin Farmland [facility] [address] [place], [place] [id number] 07/12/2025 Darwin Farmland Neuropathy G62.9 Assessments Encounter Date Diagnosis (ICD Code) Assessment Notes Treatment Notes Treatment Clinical Notes Section Notes 01/15/2025 Type 2 diabetes mellitus without complications (ICD-10 - E11.9) 01/15/2025 Essential hypertension (ICD-10 - I10) 04/27/2025 Type 2 diabetes mellitus without complications (ICD-10 - E11.9) 04/27/2025 Essential hypertension (ICD-10 - I10) 05/03/2025 Encounter for screening for lung cancer (ICD-10 - Z12.2) 07/12/2025 Neuropathy (ICD-10 - G62.9) 04/27/2025 Mixed hyperlipidemia (ICD-10 - E78.2) 01/15/2025 [...] - I50.9) 04/27/2025 Coronary artery disease involving [place] heart without angina pectoris, unspecified vessel or [...] diabetes mellitus with diabetic neuropathy, unspecified whether nursing home insulin use (ICD-10 - E11.40) 04/27/2025 BMI 31.0-31.9,adult (ICD-10 - Z68.31) Plan Of Treatment Pending Test Test Name Order Date Cologuard 01/15/2025 Cologuard 10/23/2023 Next Appt Details Provider Name:Darwin smith, 10/26/2025 09:30:00 AM, [address], [place], [id number], Insurance Providers Payer Name Payer Address Payer Phone Subscriber Number Group Number Insured Name Patient Relationship to Insured Coverage Start Date Coverage End Date [employer] (MEDICARE) [address] [address] [place] [phone] [id number] Herminia Freeman Self - patient is the insured MEDICARE PART B [address] [address] [place] [id number] Herminia Freeman Self - patient is the insured Medical (General) History Medical History History ICD Code Diabetes Hyperlipidemia Renal Failure Anxiety Neuropathy Surgical History Surgery Date(Month/Year) blood clot on brain as a child
--- NOTE | 2025-07-19 08:00 | CA_ITS ---
APPROVED REPORT EXAM: Limited 2D and color flow Echocardiogram [employer] Analyst: RT Chika(R) Ht: 5 ft 9 in Wt: 226lbs BSA: 2.18 BP: 132/70 mmHg Indications: HFrEF, CAD, hx CM, possible AICD placement 2D Dimensions EF AP4 53.70 % GL Strain -12.4 % M-Mode Dimensions RVDd 2.28 cm (0.9-2.6) LVDd 5.68 cm (3.5-5.7) LVDs 4.40 cm (3.5-5.7) IVSd 1.00 cm (0.6-1.1) PWd 0.96 cm (0.6-1.1) EF (Teich) 44.80% FS 22.50% EDV (Teich) 158.80 mL ESV (Teich) 87.70 mL Other Information Study Quality: Fair Conclusion This is a limited TTE to evaluate for LV systolic function. Limited windows are obtained. The left ventricle is normal in size. There is increased LV wall thickness. There is low-normal global LV systolic function. The septum is asynchronous. No regional wall motion abnormalities are noted. LVEF is 50%. Electronically signed by : Lela Edmond MD 07/23/2025 17:31:57
== END 2025-07-19 23:59 | disposition home or self-care (01) ==
LOC: RT 07:51
PROVIDERS: PCP Family Medicine; Visit Provider Nurse Practitioner Family
DX: I50.20 Unspecified systolic (congestive) heart failure (principal); I25.10 Atherosclerotic heart disease of native coronary artery without angina pectoris; R93.1 Abnormal findings on diagnostic imaging of heart and coronary circulation; Z76.89 Persons encountering health services in other specified circumstances
CPT/HCPCS: 93308